=== PATIENT | male | born 1980 | race African-American/Black ===

== ENCOUNTER 2016-08-06 14:03 | Emergency (ER) | payer OTHER ==
[2016-08-06 14:07] VITALS: BP 163/99; PULSE 70; RESP 20; TEMP 97.1
--- NOTE | 2016-08-06 14:43 | ED ---
General Adult HPI - General Chief complaint: Extremity Injury, Lower Stated complaint: knee injury Time Seen by Provider: 08/06/16 14:34 Source: patient, RN notes reviewed Mode of arrival: ambulatory Limitations: no limitations - History of Present Illness Initial comments: Physical 36-year-old male who presents with left knee pain 2 days. Patient states he was playing basketball with his son and he shifted his left knee and twisted the left knee. Patient states he felt a sharp pain to the left knee at this time and the pain has been gradually getting worse. Patient is able to ambulate but this is painful. Patient has noticed increased swelling to the area. Patient has been using Tylenol, Motrin and ice the area. Patient has been resting the left lower extremity but the symptoms are persisting. Patient denies any numbness/tingling or weakness to the left lower extremity. Patient is not on any anticoagulants.Patient denies any recent fever, chills, shortness breath, chest pain, abdominal pain, nausea/vomiting/diarrhea, back pain, hematuria, headache, or visual changes, or any other complaints. - Related Data Home Medications Medication Instructions Recorded Confirmed No Known Home Medications [No 08/06/16 08/06/16 Known Home Medications] Allergies Allergy/AdvReac Type Severity Reaction Status Date / Time No Known Allergies Allergy Verified 08/06/16 14:32 Review of Systems ROS Statement: Those systems with pertinent positive or pertinent negative responses have been documented in the HPI. ROS Other: All systems not noted in ROS Statement are negative. Past Medical History Past Medical History: No Reported History History of Any Multi-Drug Resistant Organisms: None Reported Past Surgical History: No Surgical Hx Reported Past Psychological History: No Psychological Hx Reported Smoking Status: Never smoker Past Alcohol Use History: None Reported Past Drug Use History: None Reported General Exam - General Exam Comments Initial Comments: General: The patient is awake and alert, in no distress, and does not appear acutely ill. Neck: The neck is supple, there is no tenderness or JVD. Cardiovascular: There is a regular rate and rhythm. No murmur, rub or gallop is appreciated. Respiratory: Lungs are clear to auscultation, respirations are non-labored, breath sounds are equal. No wheezes, stridor, rales, or rhonchi. Musculoskeletal: There is tenderness to palpation over the medial aspect of the left knee with some localized swelling to this area. No erythema, ecchymosis or warmth. Patient's left knee is stable with varus and valgus stress and with anterior/posterior drawer test. Full range of motion, strength 5/5 and Sensation intact. Posterior tibial and dorsalis pedis pulses are 2+ bilaterally. Capillary refill is normal at less than 2 seconds. Neurological: A&O x 3. CN II-XII intact, There are no obvious motor or sensory deficits. Coordination appears grossly intact. Speech is normal. Skin: Skin is warm and dry and no rashes or lesions are noted. Psychiatric: Normal mood and affect. Limitations: no limitations Course Vital Signs 08/06/16 14:05 Temperature 97.1 F L Pulse Rate 70 Respiratory 20 Rate Blood Pressure 163/99 O2 Sat by Pulse 99 Oximetry Medical Decision Making - Medical Decision Making This is a 36-year-old male left knee pain 2 days. On physical exam there is tenderness to palpation over the medial aspect of the left knee with some localized swelling to this area. No erythema, ecchymosis or warmth. Patient's left knee is stable with varus and valgus stress and with anterior/posterior drawer test. Full range of motion, strength 5/5 and Sensation intact. Posterior tibial and dorsalis pedis pulses are 2+ bilaterally. Capillary refill is normal at less than 2 seconds. An x-ray of the left knee was done and reviewed showing: No acute fracture or dislocation. Reported by Dr. Cline. Discussed the results with patient. Discussed rest, ice, elevate and use knee immobilizer when up and walking. Discussed use of crutches. Discussed that if pain and swelling does not improve in the next 5-7 days after resting and icing and elevating and use of Tylenol and/or Motrin [id number] with knee immobilzed then patient needs to follow-up with his primary care physician and/ or orthopedics for further evaluation. As of right now patient is able to ambulate and put weight on the left lower extremity.Discussed that patient should follow up with PCP in one to 2 days or return to the [facility] for any worsening symptoms or for any further concerns. Patient was receptive to this plan and patient will be discharged home. I discussed this case with attending physician Dr. Ennis who agrees the plan as stated above. Disposition Clinical Impression: Knee sprain Disposition: HOME SELF-CARE Condition: Good Instructions: Knee Sprain (ED) Additional Instructions: Please rest, ice, elevate and use knee immobilizer while up for support. May use crutches if needed. Please continue use of Tylenol and/or Motrin for pain. If symptoms have not improved in the next 5-7 days after rest, ice, elevate, knee immobilizer and Tylenol/Motrin please follow-up with orthopedics for further evaluation. Otherwise follow-up with her primary care doctor in the next 1-2 days or return to the [facility] for any worsening symptoms or for any further concerns. Referrals: Stef Newman MD [Primary Care Provider] - 1-2 days Robert Menjivar MD [STAFF PHYSICIAN] - 1-2 days Alana Martinez III, MD [STAFF PHYSICIAN] - 1-2 days Liat Coto MD [STAFF PHYSICIAN] - 1-2 days Time of Disposition: 15:04
--- NOTE | 2016-08-06 15:03 | XR ---
EXAMINATION TYPE: XR knee complete LT DATE OF EXAM: 08/06/2016 2:54 PM COMPARISON: NONE HISTORY: Pain TECHNIQUE: Four views are submitted. FINDINGS: Mild narrowing of the joint spaces. No erosive change. There is a small suprapatellar or small fluid collection. Well-corticated density adjacent to the tibial tubercle likely related to remote trauma. Osseous structures are intact. No acute fracture seen. IMPRESSION: 1. No acute fracture or dislocation.
== END 2016-08-06 15:18 | disposition home or self-care (01) ==
LOC: EC 14:03
DX: S83.92XA Sprain of unspecified site of left knee, initial encounter (principal); X50.1XXA Overexertion from prolonged static or awkward postures, initial encounter; Y93.67 Activity, basketball
CPT/HCPCS: 99283

== ENCOUNTER 2017-04-18 09:03 | Emergency (ER) | payer OTHER ==
--- NOTE | 2017-04-18 09:48 | ED ---
General Adult HPI - General Source: patient, RN notes reviewed Mode of arrival: ambulatory Limitations: no limitations <Dang Cline - Last Filed: 04/18/17 09:46> <Ken Lowe - Last Filed: 04/18/17 10:49> - General Chief complaint: Fall Stated complaint: lower back pain Time Seen by Provider: 04/18/17 09:43 - History of Present Illness Initial comments: 37-year-old male presents to the emergency department with a chief complaint of left-sided rib pain. Patient developed this pain after he slipped and fell onto the steps. Patient states this was a few days ago. Patient states that he is still having left-sided rib pain tender to touch worse if he coughs worse if he takes a deep breath. Patient states that he was concerned because the pain just continues to be there so he thought that he should be evaluated. Patient denies hitting his head patient denies any abdominal pain. Patient denies any other injuries from the incident.Patient denies any recent fever, chills, back pain, abdominal pain, nausea vomiting, numbness or tingling, dysuria or hematuria, constipation or diarrhea, headaches or visual changes, or any other current symptoms. (Dang Cline) - Related Data Previous Rx's Medication Instructions Recorded Cyclobenzaprine [Flexeril] 10 mg PO TID #14 tab 04/18/17 Ibuprofen 800 mg PO Q6HR PRN #20 tablet 04/18/17 Metoprolol Succinate [Toprol XL] 12.5 mg PO DAILY #30 tab 04/18/17 Allergies Allergy/AdvReac Type Severity Reaction Status Date / Time egg Allergy Rash/Hives Verified 04/18/17 09:18 Review of Systems ROS Other: All systems not noted in ROS Statement are negative. <Dang Cline - Last Filed: 04/18/17 09:46> ROS Other: All systems not noted in ROS Statement are negative. <Ken Lowe - Last Filed: 04/18/17 10:49> ROS Statement: Those systems with pertinent positive or pertinent negative responses have been documented in the HPI. Past Medical History Past Medical History: No Reported History History of Any Multi-Drug Resistant Organisms: None Reported Past Surgical History: No Surgical Hx Reported Past Psychological History: No Psychological Hx Reported Smoking Status: Current every day smoker Past Alcohol Use History: Occasional Past Drug Use History: None Reported <Dang Cline - Last Filed: 04/18/17 09:46> General Exam Limitations: no limitations General appearance: alert, in no apparent distress Eye exam: Present: normal appearance, PERRL, EOMI. Absent: scleral icterus, conjunctival injection, periorbital swelling ENT exam: Present: normal exam, mucous membranes moist Neck exam: Present: normal inspection. Absent: tenderness, meningismus, lymphadenopathy Respiratory exam: Present: normal lung sounds bilaterally, chest wall tenderness (Along the left lateral chest wall over the rib cage). Absent: respiratory distress, wheezes, rales, rhonchi, stridor Cardiovascular Exam: Present: regular rate, normal rhythm, normal heart sounds. Absent: systolic murmur, diastolic murmur, rubs, gallop, clicks GI/Abdominal exam: Present: soft, normal bowel sounds. Absent: distended, tenderness, guarding, rebound, rigid Extremities exam: Present: normal inspection, full ROM, normal capillary refill. Absent: tenderness, pedal edema, joint swelling, calf tenderness Back exam: Present: normal inspection Neurological exam: Present: alert, oriented X3 Psychiatric exam: Present: normal affect, normal mood <Dang Cline - Last Filed: 04/18/17 09:46> Course <Dang Cline - Last Filed: 04/18/17 09:46> <Ken Lowe - Last Filed: 04/18/17 10:49> Vital Signs 04/18/17 04/18/17 09:10 10:39 Temperature 98.0 F 97.8 F Pulse Rate 86 75 Respiratory 20 18 Rate Blood Pressure 168/115 160/109 O2 Sat by Pulse 99 99 Oximetry - Reevaluation(s) Reevaluation #1: 04/18/17 10:38 The patient was endorsed to me by my physician engineering inspection assistant pending x-rays. X-ray show no evidence of acute fractures or abnormalities (Ken Lowe) Reevaluation #2: 04/18/17 10:39 The patient has run out of his blood pressure medication I will renew his prescription for one month. (Ken Lowe) Reevaluation #3: 04/18/17 10:49 The patient did find that the correct dose of the Toprol was 50 mg once a day I did correct that on the printed out prescription. (Ken Lowe) Medical Decision Making <Dang Cline - Last Filed: 04/18/17 09:46> <Ken Lowe - Last Filed: 04/18/17 10:49> - Medical Decision Making 37-year-old male presents emergency Department chief complaint of left-sided rib pain after a fall. This time patient underwent an x-ray of the area. ( Dang Cline) Disposition <Dang Cline - Last Filed: 04/18/17 09:46> <Ken Lowe - Last Filed: 04/18/17 10:49> Clinical Impression: Rib contusion, Fall, Hypertension Disposition: HOME SELF-CARE Condition: Good Instructions: Hypertension (ED), Rib Contusion (ED) Prescriptions: Cyclobenzaprine [Flexeril] 10 mg PO TID #14 tab Ibuprofen 800 mg PO Q6HR PRN #20 tablet PRN Reason: Pain Metoprolol Succinate [Toprol XL] 12.5 mg PO DAILY #30 tab Referrals: None,Stated [Primary Care Provider] - 1-2 days
--- NOTE | 2017-04-18 10:03 | XR ---
EXAMINATION TYPE: XR ribs LT w pa chest xray DATE OF EXAM: 04/18/2017 CLINICAL HISTORY: Fall injury 2 days ago with chest and left-sided rib pain and difficulty in breathi ng. TECHNIQUE: Single frontal view of the chest is obtained. A frontal and oblique images the left-sided ribs are acquired. COMPARISON: None FINDINGS: There is no focal air space opacity, pleural effusion, or pneumothorax seen. The cardiac silhouette size is within normal limits. The osseous structures are intact. Dedicated images of the left-sided ribs show no acute displaced fracture. IMPRESSION: 1. No suspicious acute pulmonary process. 2. No acute displaced left-sided rib fractures are seen.
[2017-04-18 10:40] VITALS: BP 160/109; PULSE 75; RESP 18; TEMP 97.8
== END 2017-04-18 10:53 | disposition home or self-care (01) ==
LOC: EC 09:03
DX: S20.212A Contusion of left front wall of thorax, initial encounter (principal); I10 Essential (primary) hypertension; M54.5 Low back pain; F17.200 Nicotine dependence, unspecified, uncomplicated; Z91.012 Allergy to eggs; W10.9XXA Fall (on) (from) unspecified stairs and steps, initial encounter
CPT/HCPCS: 99283

== ENCOUNTER 2017-06-26 09:04 | Emergency (ER) | payer OTHER ==
[2017-06-26 09:10] VITALS: RESP 18
[2017-06-26] MEDS ORDERED: HYDROmorphone 0.5 MG/0.5 ML SYRINGE IVP STA ×2 (09:18→10:15)
[2017-06-26] MEDS ORDERED: SODIUM CHLORIDE 0.9% 500 ML IV STA (09:18)
[2017-06-26] MEDS ORDERED: ONDANSETRON 4 MG/2 ML VIAL IVP STA (09:18)
--- NOTE | 2017-06-26 09:31 | ED ---
General Adult HPI - General Chief complaint: Urogenital Stated complaint: Vomiting Time Seen by Provider: 06/26/17 09:14 Source: patient, RN notes reviewed Mode of arrival: wheelchair Limitations: no limitations - History of Present Illness Initial comments: 37-year-old male presents to the emergency department with a chief complaint of right testicular pain. He states he's had this on and off for the last week or so. Today got so intense he started having nausea and vomiting with it. He states his history of this about 3 months ago with a never found a source. He denies any fever chills any changes in urination any blood in the urine. He states she was concerned due to the continued pain and the fact he was not improving so he thought that he should be seen. Patient denies any recent fever , chills, shortness of breath, chest pain, back pain, abdominal pain, numbness or tingling, dysuria or hematuria, constipation or diarrhea, headaches or visual changes, or any other current symptoms. - Related Data Home Medications Medication Instructions Recorded Confirmed Metoprolol Succinate [Toprol XL] 50 mg PO DAILY 06/26/17 06/26/17 Previous Rx's Medication Instructions Recorded Doxycycline [Vibramycin] 100 mg PO Q12HR 10 Days capsule 06/26/17 Allergies Allergy/AdvReac Type Severity Reaction Status Date / Time egg Allergy Rash/Hives Verified 06/26/17 09:51 Review of Systems ROS Statement: Those systems with pertinent positive or pertinent negative responses have been documented in the HPI. ROS Other: All systems not noted in ROS Statement are negative. Past Medical History Past Medical History: No Reported History History of Any Multi-Drug Resistant Organisms: None Reported Past Surgical History: No Surgical Hx Reported Past Psychological History: No Psychological Hx Reported Smoking Status: Current every day smoker Past Alcohol Use History: Occasional Past Drug Use History: None Reported General Exam Limitations: no limitations General appearance: alert, in no apparent distress ENT exam: Present: normal exam, mucous membranes moist Neck exam: Present: normal inspection. Absent: tenderness, meningismus, lymphadenopathy Respiratory exam: Present: normal lung sounds bilaterally. Absent: respiratory distress, wheezes, rales, rhonchi, stridor Cardiovascular Exam: Present: regular rate, normal rhythm, normal heart sounds. Absent: systolic murmur, diastolic murmur, rubs, gallop, clicks GI/Abdominal exam: Present: soft, normal bowel sounds. Absent: distended, tenderness, guarding, rebound, rigid exam: Present: testicular tenderness (Right testicle better with lifting), scrotal swelling (Minimal to the right testicle), circumcision. Absent: urethral discharge Neurological exam: Present: alert, oriented X3 Psychiatric exam: Present: normal affect, normal mood Skin exam: Present: warm, dry, intact, normal color. Absent: rash Course Vital Signs 06/26/17 06/26/17 09:07 10:15 Temperature 99.6 F 98.1 F Pulse Rate 65 70 Respiratory 18 18 Rate Blood Pressure 180/128 167/115 O2 Sat by Pulse 100 98 Oximetry Medical Decision Making - Medical Decision Making 37-year-old male presents for right testicular pain. At this time patient with Levaquin ultrasound. Patient is feeling better with pain medication. At this time patient's ultrasound has been reviewed that show suspicion for orchitis. At this time we will treat the patient accordingly. We did send a STD testing. We discussed follow-up we discussed care we did discuss return parameters all questions. Patient stated that he understood and he is agreement this plan. All questions have been answered. He will be discharged. - Lab Data Result diagrams: 06/26/17 09:35 06/26/17 09:35 Lab Results 06/26/17 06/26/17 06/26/17 Range/Units 09:35 09:35 10:20 WBC 7.7 (3.8-10.6) k/uL RBC 4.60 (4.30-5.90) m/uL Hgb 14.0 (13.0-17.5) gm/dL Hct 43.0 (39.0-53.0) % MCV 93.5 (80.0-100.0) fL MCH 30.5 (25.0-35.0) pg MCHC 32.6 (31.0-37.0) g/dL RDW 14.9 (11.5-15.5) % Plt Count 228 (150-450) k/uL Neutrophils % 64 % Lymphocytes % 23 % Monocytes % 8 % Eosinophils % 2 % Basophils % 0 % Neutrophils # 4.9 (1.3-7.7) k/uL Lymphocytes # 1.8 (1.0-4.8) k/uL Monocytes # 0.6 (0-1.0) k/uL Eosinophils # 0.2 (0-0.7) k/uL Basophils # 0.0 (0-0.2) k/uL Sodium 142 (137-145) mmol/L Potassium 4.3 (3.5-5.1) mmol/L Chloride 107 (98-107) mmol/L Carbon Dioxide 24 (22-30) mmol/L Anion Gap 11 mmol/L BUN 14 (9-20) mg/dL Creatinine 1.02 (0.66-1.25) mg/dL Est GFR (MDRD) Af Amer >60 (>60 ml/min/1.73 sqM) Est GFR (MDRD) Non-Af >60 (>60 ml/min/1.73 sqM) Glucose 111 H (74-99) mg/dL Calcium 9.8 (8.4-10.2) mg/dL Total Bilirubin 0.4 (0.2-1.3) mg/dL AST 23 (17-59) U/L ALT 27 (21-72) U/L Alkaline Phosphatase 61 (38-126) U/L Total Protein 7.5 (6.3-8.2) g/dL Albumin 4.4 (3.5-5.0) g/dL Urine Color Yellow Urine Appearance Clear (Clear) Urine pH 7.0 (5.0-8.0) Ur Specific [place] 1.014 (1.001-1.035) Urine Protein Negative (Negative) Urine Glucose (UA) Negative (Negative) Urine Ketones Negative (Negative) Urine Blood Negative (Negative) Urine Nitrite Negative (Negative) Urine Bilirubin Negative (Negative) Urine Urobilinogen 2.0 (<2.0) mg/dL Ur Leukocyte Esterase Negative (Negative) - Radiology Data Radiology results: report reviewed, image reviewed Disposition Clinical Impression: Orchitis Disposition: HOME SELF-CARE Condition: Stable Instructions: Orchitis (ED), Safe Sex (ED) Additional Instructions: Please use medication as discussed. Please follow up with family doctor if symptoms have not improved over the next two days. Please return to the emergency room if your symptoms increase or worsen or for any other concerns. Prescriptions: Doxycycline [Vibramycin] 100 mg PO Q12HR 10 Days capsule Referrals: Carlos Hawkins MD [STAFF PHYSICIAN] - 1-2 days Time of Disposition: 10:53
[2017-06-26 09:52] LABS: Basophils % (A) 0 %; Eosinophils # (A) 0.2 k/uL (0-0.7); Eosinophils % (A) 2 %; Lymphocytes # (A) 1.8 k/uL (1.0-4.8); Lymphocytes % (A) 23 %; MCH 30.5 pg (25.0-35.0); MCHC 32.6 g/dL (31.0-37.0); MCV 93.5 fL (80.0-100.0); Mean Platelet Volume 8.4; Monocytes # (A) 0.6 k/uL (0-1.0); Monocytes % (A) 8 %; Neutrophils # (A) 4.9 k/uL (1.3-7.7); Neutrophils % (A) 64 %; Platelet Count 228 k/uL (150-450); RDW 14.9 % (11.5-15.5); WBC 7.7 k/uL (3.8-10.6)
[2017-06-26 10:06] LABS: ALT 27 U/L (21-72); AST 23 U/L (17-59); Albumin 4.4 g/dL (3.5-5.0); Alkaline Phosphatase 61 U/L (38-126); Anion Gap 11 mmol/L; Blood Urea Nitrogen 14 mg/dL (9-20); Calcium 9.8 mg/dL (8.4-10.2); Carbon Dioxide 24 mmol/L (22-30); Chloride 107 mmol/L (98-107); Glucose 111 mg/dL (74-99); Potassium 4.3 mmol/L (3.5-5.1); Sodium 142 mmol/L (137-145); Total Bilirubin 0.4 mg/dL (0.2-1.3); Total Protein 7.5 g/dL (6.3-8.2)
[2017-06-26 10:16] VITALS: BP 167/115; PULSE 70; TEMP 98.1
--- NOTE | 2017-06-26 10:27 | US ---
EXAMINATION TYPE: US scrotum with doppler. Grayscale and color Doppler Duplex imaging performed of t he scrotum. DATE OF EXAM: 06/26/2017 COMPARISON: NONE CLINICAL HISTORY: Pain. right side pain x 1 day, swelling, no injury EXAM MEASUREMENTS: TESTICLES: Right Testicle: 3.9 x 3.8 x 3.0 cm Left Testicle: 5.0 x 3.3 x 2.8 cm EPIDIDYMIS HEAD: Right Epididymis: 1.2 x 2.8 x 1.2 cm Left Epididymis: 1.4 x 1.4 x1.1 cm Doppler performed to assess for testicular vascularity; good bilateral color flow and waveforms are s een. There is no evidence of testicular torsion. Presence of hydroceles: Small bilaterally Right testicle appears slightly heterogenous an hypervascular compared to left. Right epididymis juliana ears echogenic and enlarged. IMPRESSION: Sonographic findings most compatible with mild right epididymal orchitis with small bilat eral hydroceles.
[2017-06-26] MEDS ORDERED: cefTRIAXone 250 MG VIAL IM STA (10:32)
[2017-06-26 10:37] LABS: Appearance,Urine Clear (Clear); Bilirubin,Urine Negative (Negative); Blood,Urine Negative (Negative); Color,Urine Yellow; Glucose,Urine (UA) Negative (Negative); Ketones,Urine Negative (Negative); Leukocyte Esterase,Urine Negative (Negative); Nitrite,Urine Negative (Negative); Protein,Urine Negative (Negative); Specific Gravity,Urine 1.014 (1.001-1.035)
== END 2017-06-26 11:18 | disposition home or self-care (01) ==
LOC: EC 09:04
DX: N45.2 Orchitis (principal); R11.2 Nausea with vomiting, unspecified; F17.200 Nicotine dependence, unspecified, uncomplicated; Z79.899 Other long term (current) drug therapy; Z91.012 Allergy to eggs
CPT/HCPCS: 36415; 80053; 85025; 81003; 93975; 76870; 99284; 96374; 96375; 96376; 96361; 96372; J2405; J0696; J1170

== ENCOUNTER 2017-07-10 18:35 | Observation (INO) | payer OTHER ==
[2017-07-10] MEDS ORDERED: RX INFO: IV CONTRAST WAS GIVEN 1 EACH MISC MISCELLANE PRN (21:30)
[2017-07-10] MEDS ORDERED: METOPROLOL TARTRATE 50 MG TAB PO STA (21:32)
[2017-07-10] MEDS ORDERED: METOPROLOL TARTRATE 5 MG/5 ML VIAL IVP STA (21:40)
[2017-07-10] MEDS ORDERED: ONDANSETRON 4 MG/2 ML VIAL IVP STA (21:40)
[2017-07-10] MEDS ORDERED: MORPHINE SULFATE 5 MG/ML SYRINGE IV STA ×2 (21:40→23:23)
--- NOTE | 2017-07-10 21:42 | ED ---
Abdominal Pain HPI - General Chief Complaint: Abdominal Pain Stated Complaint: Abdominal pain Time Seen by Provider: 07/10/17 21:14 Source: patient Mode of arrival: ambulatory Limitations: no limitations - History of Present Illness Initial Comments: Is a 37-year-old man with right lower quadrant pain going on for a bit over 28 hours. The patient states that did seem to have become more intense from this afternoon on. He describes as a burning/aching pain. It is now severe. He has not found any relieving factors and does note that is worse if he presses on his abdomen. He states he has also been having some nausea and vomiting associated. He states he did have a bowel movement this afternoon but that it was very loose. No change in urination. No urethral discharge. He states he has also noted a small lump just above his umbilicus MD Complaint: abdominal pain Onset/Timin -: hour(s) Location: RLQ Radiation: none Migration to: no migration Severity: severe Quality: aching, burning Consistency: constant Improves With: nothing Worsens With: nothing Associated Symptoms: nausea, vomiting - Related Data Previous Rx's Medication Instructions Recorded Metoprolol Succinate [Toprol XL] 50 mg PO DAILY #30 tab.er.24h 06/26/17 Allergies Allergy/AdvReac Type Severity Reaction Status Date / Time egg Allergy Rash/Hives Verified 07/10/17 21:10 Review of Systems ROS Statement: Those systems with pertinent positive or pertinent negative responses have been documented in the HPI. ROS Other: All systems not noted in ROS Statement are negative. Constitutional: Denies: fever, chills Respiratory: Denies: cough, dyspnea Cardiovascular: Denies: chest pain, palpitations, edema Gastrointestinal: Reports: abdominal pain, nausea, vomiting. Denies: diarrhea, hematemesis, melena, hematochezia Genitourinary: Denies: dysuria, hematuria, discharge, testicular pain, testicular mass Musculoskeletal: Denies: back pain Skin: Denies: rash Neurological: Denies: headache, weakness, numbness Past Medical History Past Medical History: Hypertension History of Any Multi-Drug Resistant Organisms: None Reported Past Surgical History: No Surgical Hx Reported Past Psychological History: No Psychological Hx Reported Smoking Status: Current every day smoker Past Alcohol Use History: Occasional Past Drug Use History: None Reported General Exam Limitations: no limitations General appearance: alert, in distress Head exam: Present: atraumatic, normocephalic Eye exam: Present: normal appearance. Absent: scleral icterus, conjunctival injection ENT exam: Present: normal oropharynx Neck exam: Present: normal inspection, full ROM Respiratory exam: Present: normal lung sounds bilaterally. Absent: respiratory distress, wheezes, rales, rhonchi, stridor Cardiovascular Exam: Present: regular rate, normal rhythm, normal heart sounds. Absent: systolic murmur, diastolic murmur, rubs, gallop GI/Abdominal exam: Present: soft. Absent: distended, tenderness, guarding, rebound, mass Extremities exam: Present: normal inspection, normal capillary refill. Absent: pedal edema, calf tenderness Back exam: Present: normal inspection, full ROM. Absent: CVA tenderness (R), CVA tenderness (L) Neurological exam: Present: alert Skin exam: Present: warm, dry, intact, normal color. Absent: rash Course Vital Signs 07/10/17 07/10/17 07/10/17 18:46 21:31 22:53 Temperature 98.2 F Pulse Rate 64 55 L Respiratory 22 20 Rate Blood Pressure 211/129 213/114 178/101 O2 Sat by Pulse 100 100 Oximetry Medical Decision Making - Lab Data Result diagrams: 07/10/17 21:30 07/10/17 21:30 Lab Results 07/10/17 07/10/17 07/10/17 Range/Units 21:30 21:30 21:30 WBC 7.0 (3.8-10.6) k/uL RBC 4.32 (4.30-5.90) m/uL Hgb 13.4 (13.0-17.5) gm/dL Hct 41.6 (39.0-53.0) % MCV 96.2 (80.0-100.0) fL MCH 31.1 (25.0-35.0) pg MCHC 32.3 (31.0-37.0) g/dL RDW 13.3 (11.5-15.5) % Plt Count 225 (150-450) k/uL Neutrophils % 81 % Lymphocytes % 13 % Monocytes % 4 % Eosinophils % 2 % Basophils % 0 % Neutrophils # 5.6 (1.3-7.7) k/uL Lymphocytes # 0.9 L (1.0-4.8) k/uL Monocytes # 0.3 (0-1.0) k/uL Eosinophils # 0.1 (0-0.7) k/uL Basophils # 0.0 (0-0.2) k/uL Sodium 144 (137-145) mmol/L Potassium 3.9 (3.5-5.1) mmol/L Chloride 108 H (98-107) mmol/L Carbon Dioxide 24 (22-30) mmol/L Anion Gap 12 mmol/L BUN 17 (9-20) mg/dL Creatinine 1.10 (0.66-1.25) mg/dL Est GFR (MDRD) Af Amer >60 (>60 ml/min/1.73 sqM) Est GFR (MDRD) Non-Af >60 (>60 ml/min/1.73 sqM) Glucose 113 H (74-99) mg/dL Calcium 9.8 (8.4-10.2) mg/dL Total Bilirubin 0.3 (0.2-1.3) mg/dL AST 29 (17-59) U/L ALT 20 L (21-72) U/L Alkaline Phosphatase 66 (38-126) U/L Total Protein 7.3 (6.3-8.2) g/dL Albumin 4.3 (3.5-5.0) g/dL Amylase 64 (30-110) U/L Lipase 72 (23-300) U/L Urine Color Light Yellow Urine Appearance Clear (Clear) Urine pH 6.0 (5.0-8.0) Ur Specific [place] 1.015 (1.001-1.035) Urine Protein Negative (Negative) Urine Glucose (UA) Negative (Negative) Urine Ketones Negative (Negative) Urine Blood Negative (Negative) Urine Nitrite Negative (Negative) Urine Bilirubin Negative (Negative) Urine Urobilinogen <2.0 (<2.0) mg/dL Ur Leukocyte Esterase Negative (Negative) Disposition Clinical Impression: Abdominal pain Disposition: ADMITTED IP TO THIS HOSP Condition: Fair Instructions: Abdominal Pain (ED) Referrals: None,Stated [Primary Care Provider] - 1-2 days
[2017-07-10 21:44] LABS: Appearance,Urine Clear (Clear); Basophils % (A) 0 %; Bilirubin,Urine Negative (Negative); Blood,Urine Negative (Negative); Color,Urine Light Yellow; Eosinophils # (A) 0.1 k/uL (0-0.7); Eosinophils % (A) 2 %; Glucose,Urine (UA) Negative (Negative); HCT 41.6 % (39.0-53.0); HGB 13.4 gm/dL (13.0-17.5); Ketones,Urine Negative (Negative); Leukocyte Esterase,Urine Negative (Negative); Lymphocytes # (A) 0.9 k/uL (1.0-4.8); Lymphocytes % (A) 13 %; MCH 31.1 pg (25.0-35.0); MCHC 32.3 g/dL (31.0-37.0); MCV 96.2 fL (80.0-100.0); Mean Platelet Volume 7.5; Monocytes # (A) 0.3 k/uL (0-1.0); Monocytes % (A) 4 %; Neutrophils # (A) 5.6 k/uL (1.3-7.7); Neutrophils % (A) 81 %; Nitrite,Urine Negative (Negative); Platelet Count 225 k/uL (150-450); Protein,Urine Negative (Negative); RBC 4.32 m/uL (4.30-5.90); RDW 13.3 % (11.5-15.5); Specific Gravity,Urine 1.015 (1.001-1.035); Urobilinogen,Urine <2.0 mg/dL (<2.0)
[2017-07-10 21:56] LABS: ALT 20 U/L (21-72); AST 29 U/L (17-59); Albumin 4.3 g/dL (3.5-5.0); Alkaline Phosphatase 66 U/L (38-126); Amylase 64 U/L (30-110); Anion Gap 12 mmol/L; Blood Urea Nitrogen 17 mg/dL (9-20); Calcium 9.8 mg/dL (8.4-10.2); Carbon Dioxide 24 mmol/L (22-30); Chloride 108 mmol/L (98-107); Glucose 113 mg/dL (74-99); Lipase 72 U/L (23-300); Potassium 3.9 mmol/L (3.5-5.1); Sodium 144 mmol/L (137-145); Total Bilirubin 0.3 mg/dL (0.2-1.3); Total Protein 7.3 g/dL (6.3-8.2)
--- NOTE | 2017-07-10 22:44 | CT ---
EXAMINATION TYPE: CT abdomen pelvis w con DATE OF EXAM: 07/10/2017 COMPARISON: NONE HISTORY: RLQ abd pain. CT DLP: 644.4 mGycm Automated exposure control for dose reduction was used. TECHNIQUE: Helical acquisition of images was performed from the lung bases through the pelvis. CONTRAST: Performed without Oral Contrast and with IV Contrast, patient injected with 100ml mL of Omnipaque 300 . FINDINGS: Lung bases are clear. There is no pleural effusion. Heart appears mildly enlarged. Liver spleen pancreas gallbladder appear normal. Bile ducts are not dilated. There is no adrenal mass . Kidneys show satisfactory contrast opacification. There is no hydronephrosis. There is no retroperi toneal adenopathy. The abdominal aorta is large for the patient's relatively young age. The lower abd ominal aorta measures 2.7 cm. Common iliac arteries measure 1.5 cm. I see no intestinal wall thickeni ng. There are no dilated loops. There is no ascites. There are some varicose veins in the pelvis on t he left side more than the right. Appendix appears normal. Bladder distends smoothly. There is posterior disc bulging at L3-4 L4-5 and L5-S1 with narrowing of t he spinal canal. There is multilevel lumbar spinal stenosis. IMPRESSION: THERE ARE PELVIC VARICOSE VEINS OF UNCERTAIN ORIGIN AND SIGNIFICANCE. NO FREE FLUID. ECTASIA OF THE ABDOMINAL AORTA AND THE ILIAC ARTERIES IN THIS RELATIVELY YOUNG PATIENT. THERE IS PROB ABLY MILD CARDIOMEGALY. THERE IS SOME SPONDYLOSIS IN THE LOWER LUMBAR SPINE WITH MULTILEVEL LUMBAR SPINAL BONY SPINAL STENOSI S AND POSTERIOR DISC BULGING AND HERNIATION SEEN AT L3-4 L4-5 AND L5-S1.
[2017-07-10] MEDS ORDERED: METOPROLOL TARTRATE 25 MG TAB PO STA (23:24)
[2017-07-10] MEDS ORDERED: ACETAMINOPHEN TAB 325 MG TAB PO PRN (23:29)
[2017-07-10] MEDS ORDERED: ONDANSETRON 4 MG/2 ML VIAL IVP PRN (23:29)
[2017-07-10] MEDS ORDERED: NALOXONE 0.4 MG/ML 1 ML VIAL IV PRN (23:29)
[2017-07-10] MEDS ORDERED: MORPHINE SULFATE 5 MG/ML SYRINGE IV PRN (23:29)
[2017-07-11 01:23] VITALS: BMI 23.7
[2017-07-11] MEDS: MORPHINE SULFATE 2 MG/ML SYRINGE IV PRN ×4 (01:47→22:06)
[2017-07-11] MEDS: SODIUM CHLORIDE 0.9% 1,000 ML IV SCH ×2 (01:48→21:33)
[2017-07-11 06:49] LABS: Basophils % (A) 0 %; Eosinophils # (A) 0.1 k/uL (0-0.7); Eosinophils % (A) 2 %; HCT 41.2 % (39.0-53.0); HGB 13.2 gm/dL (13.0-17.5); Lymphocytes # (A) 2.4 k/uL (1.0-4.8); Lymphocytes % (A) 33 %; MCH 31.7 pg (25.0-35.0); MCHC 32.1 g/dL (31.0-37.0); MCV 98.7 fL (80.0-100.0); Mean Platelet Volume 8.2; Monocytes # (A) 0.5 k/uL (0-1.0); Monocytes % (A) 6 %; Neutrophils # (A) 4.2 k/uL (1.3-7.7); Neutrophils % (A) 57 %; Platelet Count 209 k/uL (150-450); RBC 4.17 m/uL (4.30-5.90); RDW 14.5 % (11.5-15.5); WBC 7.4 k/uL (3.8-10.6)
[2017-07-11 07:00] LABS: ALT 26 U/L (21-72); AST 25 U/L (17-59); Albumin 3.7 g/dL (3.5-5.0); Alkaline Phosphatase 59 U/L (38-126); Anion Gap 10 mmol/L; Blood Urea Nitrogen 10 mg/dL (9-20); Calcium 9.1 mg/dL (8.4-10.2); Carbon Dioxide 24 mmol/L (22-30); Chloride 108 mmol/L (98-107); Glucose 94 mg/dL (74-99); Potassium 3.8 mmol/L (3.5-5.1); Sodium 142 mmol/L (137-145); Total Bilirubin 0.5 mg/dL (0.2-1.3); Total Protein 6.4 g/dL (6.3-8.2)
[2017-07-11] MEDS ORDERED: ROCURONIUM BROMIDE 10 MG/ML 10 ML VIAL IV ONE (07:03)
[2017-07-11] MEDS ORDERED: KETOROLAC 30 MG/ML 1 ML VIAL ONE (07:03)
[2017-07-11] MEDS ORDERED: PROPOFOL 10 MG/ML 20 ML VIAL IV ONE (07:03)
[2017-07-11] MEDS ORDERED: HYDROmorphone (PF) 1 MG/ML ONE (07:03)
[2017-07-11] MEDS ORDERED: GLYCOPYRROLATE 0.2 MG/ML 2 ML VIAL ONE (07:03)
[2017-07-11] MEDS ORDERED: MIDAZOLAM 2 MG/2 ML VIAL ONE (07:03)
[2017-07-11] MEDS ORDERED: SUCCINYLCHOLINE CHLORIDE 100 MG/5 ML SYR IV ONE (07:03)
[2017-07-11] MEDS ORDERED: NEOSTIGMINE 1 MG/ML 10 ML VIAL ONE (07:03)
[2017-07-11] MEDS ORDERED: fentaNYL (PF) 50 MCG/ML 2 ML AMP ONE (07:03)
[2017-07-11] MEDS ORDERED: LIDOCAINE 1% INJ 10MG/ML (20 ML MDV) ONE (07:03)
[2017-07-11] MEDS: FAMOTIDINE 20 MG TAB PO SCH ×2 (08:09→20:10)
[2017-07-11] MEDS: METOPROLOL SUCCINATE (ER) 50 MG TAB.ER.24H PO SCH ×2 (09:28→20:10)
--- NOTE | 2017-07-11 11:14 | P.GSHP ---
History of Present Illness H&P Date: 07/11/17 Chief Complaint: Abdominal pain The patient's a 37-year-old man who began having some right-sided abdominal pain on Saturday. He was able to work Saturday but we he was having quite a bit of discomfort. He also worked and it was persisting. He came into the emergency room last night. He's had some nausea and vomiting. Possible low- grade fever no chills. No previous episodes of anything like this in the past. He's had some intermittent diarrhea 2-3 times a day for the last few days. No blood in the stool or dark tarry stool. For last 2 weeks he has had some heartburn and indigestion. He's tried adjusting his diet to avoid fatty foods and hasn't really helped. No dysphagia. No weight loss. No history of ulcer disease. Today the pain is right lower quadrant. Worse when he moves. - Review of Systems All systems: negative - Constitutional Constitutional: Reports chills Past Medical History Past Medical History: Hypertension Additional Past Medical History / Comment(s): patient broke right wrist playing basketball in 2002 History of Any Multi-Drug Resistant Organisms: None Reported Past Surgical History: No Surgical Hx Reported Past Psychological History: No Psychological Hx Reported Smoking Status: Current every day smoker Past Alcohol Use History: Occasional Past Drug Use History: None Reported - Past Family History Father Family Medical History: No Reported History, Hypertension Mother Family Medical History: No Reported History Medications and Allergies Home Medications Medication Instructions Recorded Confirmed Type Metoprolol Succinate [Toprol XL] 50 mg PO BID 07/11/17 07/10/17 History Allergies Allergy/AdvReac Type Severity Reaction Status Date / Time egg Allergy Rash/Hives Verified 07/10/17 21:10 Surgical - Exam Osteopathic Statement: *. No significant issues noted on an osteopathic structural exam other than those noted in the History and Physical/Consult. Vital Signs Temp Pulse Resp BP Pulse Ox 98.2 F 64 22 211/129 100 07/10/17 18:46 07/10/17 18:46 07/10/17 18:46 07/10/17 18:46 07/10/17 18:46 - General well developed, well nourished, no distress - Eyes normal ocular movement - ENT normal mucosa - Neck trachea midline - Respiratory normal respiratory effort, clear to auscultation - Cardiovascular Rhythm: regular - Abdomen Abdomen: soft, tender (Right lower quadrant with some mild guarding), no surgical scars, no rigid, no rebound, no distended Results - Labs 07/11/17 06:16 07/11/17 06:16 Abnormal Lab Results - Last 24 Hours (Table) 07/10/17 07/10/17 07/11/17 Range/Units 21:30 21:30 06:16 RBC 4.17 L (4.30-5.90) m/uL Lymphocytes # 0.9 L (1.0-4.8) k/uL Chloride 108 H (98-107) mmol/L Glucose 113 H (74-99) mg/dL ALT 20 L (21-72) U/L 07/11/17 Range/Units 06:16 RBC (4.30-5.90) m/uL Lymphocytes # (1.0-4.8) k/uL Chloride 108 H (98-107) mmol/L Glucose (74-99) mg/dL ALT (21-72) U/L Diabetes panel 07/10/17 07/11/17 Range/Units 21:30 06:16 Sodium 144 142 (137-145) mmol/L Potassium 3.9 3.8 (3.5-5.1) mmol/L Chloride 108 H 108 H (98-107) mmol/L Carbon Dioxide 24 24 (22-30) mmol/L BUN 17 10 (9-20) mg/dL Creatinine 1.10 0.95 (0.66-1.25) mg/dL Glucose 113 H 94 (74-99) mg/dL Calcium 9.8 9.1 (8.4-10.2) mg/dL AST 29 25 (17-59) U/L ALT 20 L 26 (21-72) U/L Alkaline Phosphatase 66 59 (38-126) U/L Total Protein 7.3 6.4 (6.3-8.2) g/dL Albumin 4.3 3.7 (3.5-5.0) g/dL Calcium panel 07/10/17 07/11/17 Range/Units 21:30 06:16 Calcium 9.8 9.1 (8.4-10.2) mg/dL Albumin 4.3 3.7 (3.5-5.0) g/dL Pituitary panel 07/10/17 07/11/17 Range/Units 21:30 06:16 Sodium 144 142 (137-145) mmol/L Potassium 3.9 3.8 (3.5-5.1) mmol/L Chloride 108 H 108 H (98-107) mmol/L Carbon Dioxide 24 24 (22-30) mmol/L BUN 17 10 (9-20) mg/dL Creatinine 1.10 0.95 (0.66-1.25) mg/dL Glucose 113 H 94 (74-99) mg/dL Calcium 9.8 9.1 (8.4-10.2) mg/dL Adrenal panel 07/10/17 07/11/17 Range/Units 21:30 06:16 Sodium 144 142 (137-145) mmol/L Potassium 3.9 3.8 (3.5-5.1) mmol/L Chloride 108 H 108 H (98-107) mmol/L Carbon Dioxide 24 24 (22-30) mmol/L BUN 17 10 (9-20) mg/dL Creatinine 1.10 0.95 (0.66-1.25) mg/dL Glucose 113 H 94 (74-99) mg/dL Calcium 9.8 9.1 (8.4-10.2) mg/dL Total Bilirubin 0.3 0.5 (0.2-1.3) mg/dL AST 29 25 (17-59) U/L ALT 20 L 26 (21-72) U/L Alkaline Phosphatase 66 59 (38-126) U/L Total Protein 7.3 6.4 (6.3-8.2) g/dL Albumin 4.3 3.7 (3.5-5.0) g/dL - Imaging CT scan - abdomen: report reviewed, image reviewed Assessment and Plan (1) Abdominal pain Current Visit: Yes Status: Acute Code(s): R10.9 - UNSPECIFIED ABDOMINAL PAIN SNOMED Code(s): 41754180 Plan: We'll hydrate the patient and control pain. We'll make him nothing by mouth. Reevaluate in this afternoon. If he has persistent pain that I think he benefit from laparoscopic appendectomy. I explained that sometimes early appendicitis is not well visualized on CT scan. Further recommendations to follow.
[2017-07-11] MEDS ORDERED: IV FLUID CONTINUATION 1,000 ML IV ONE (15:48)
[2017-07-11] MEDS ORDERED: fentaNYL (PF) 50 MCG/ML 2 ML AMP IVP ONE (16:03)
[2017-07-11] MEDS ORDERED: BUPIVACAINE (PF) 0.25% 30 ML VIAL SQ ONE ×2 (16:08)
[2017-07-11] MEDS ORDERED: ERTAPENEM 1 GM in SODIUM CHLORIDE 0.9% 50 ML IVPB STA (17:01)
[2017-07-11] MEDS ORDERED: LACTATED RINGERS 1,000 ML IV ONE (17:26)
--- NOTE | 2017-07-11 17:53 | P.OP ---
Date of Procedure: 07/11/17 Preoperative Diagnosis: Right lower quadrant pain, appendicitis, umbilical hernia Postoperative Diagnosis: Same, small bilateral direct inguinal hernias Procedure(s) Performed: Laparoscopic appendectomy, umbilical herniorrhaphy Anesthesia: DEVON Surgeon: Eveline Calhoun Estimated Blood Loss (ml): 5 Pathology: other (Appendix) Condition: stable Disposition: PACU Indications for Procedure: The patient has had right lower quadrant pain with some nausea. It's been persisting. His CAT scan was okay but his symptomatology and pain was in the right location for appendicitis. He also had a small incarcerated umbilical hernia Operative Findings: Small umbilical hernia with incarcerated preperitoneal fat, small direct inguinal hernias, probable early appendicitis Description of Procedure: The patient's taken the operative suite where he is prepped and draped in the usual sterile manner under general endotracheal anesthetic. A small supraumbilical incision was made. The incarcerated preperitoneal fat is dissected free. It's transected with harmonic scissors. An optical trocar was placed through the small fascial defect. The defect was probably 6 mm in size. Pneumoperitoneum was then established with CO2 gas. Sites are chosen for accessory trochars and these are placed through small skin incisions. The liver , diaphragm, large and small bowel were normal where they were seen. The terminal ileum was run and there was no evidence of a goals diverticulum. The appendix was somewhat injected. It was grasped and retracted towards the anterior abdominal wall. The mesial appendix was taken down with harmonic scissors. The base was ligated with 0 PDS Endoloops 2. The appendix is then transected and placed into a specimen retrieval bag. The retrieval bag was removed through the umbilical port site. The trochars were removed. The pneumoperitoneum was released. The fascia at the umbilicus was closed with 0 Vicryl. The skin incisions were closed with 4-0 Vicryl subcuticular manner. Steri-Strips and dressings were applied. He tolerated the procedure without difficulty and was taken recovery room in satisfactory condition. According to or personnel, all counts were correct.
[2017-07-11] MEDS ORDERED: D5-0.45% NACL WITH KCL 20MEQ/L 1,000 ML IV SCH (18:00)
[2017-07-11] MEDS: MORPHINE SULFATE 10 MG/ML SYRINGE IVP ONE ×5 (18:12→18:40)
[2017-07-11 18:15] VITALS: RESP 16
[2017-07-11] MEDS: KETOROLAC 30 MG/ML 1 ML VIAL IVP SCH (20:07)
[2017-07-12] MEDS: HYDROcodone/APAP 5-325MG 1 EACH TAB PO PRN ×2 (00:07→05:20)
[2017-07-12] MEDS: KETOROLAC 30 MG/ML 1 ML VIAL IVP SCH ×2 (00:08→05:20)
[2017-07-12] MEDS: FAMOTIDINE 20 MG TAB PO SCH (08:35)
[2017-07-12] MEDS: METOPROLOL SUCCINATE (ER) 50 MG TAB.ER.24H PO SCH (08:35)
[2017-07-12 08:45] VITALS: BP 154/89; PULSE 73; TEMP 99.2
[2017-07-12 14:18] LABS: C. trachomatis,PCR Negative (Neg,Equiv); Chlamydia trachomatis Source Urine; N. gonorrhoeae,PCR Negative (Neg,Equiv); Neisseria Source Urine
--- NOTE | 2017-07-25 12:03 | P.DS ---
Providers Date of admission: 07/10/17 23:29 Expected date of discharge: 07/12/17 Attending physician: Eveline Calhoun Primary care physician: Stated None - Discharge Diagnosis(es) (1) Abdominal pain Status: Acute Hospital Course: The patient presented with right lower quadrant pain and diarrhea. The computed tomography scan did not show evidence of acute appendicitis however his pain was consistent with appendicitis and persistent. He is subsequently taken the OR where he underwent laparoscopic appendectomy. Appendix appeared somewhat injected. The terminal ileum was normal. No evidence of Meckel's diverticulum. No evidence of inguinal hernias. Postoperative day 1 he was feeling better. He was not having diarrhea. Was felt to be stable for discharge. Pertinent Studies: Computed tomography scan, labs Procedures: Laparoscopic appendectomy Patient Condition at Discharge: Good Plan - Discharge Summary Discharge Rx Participant: Yes New Discharge Prescriptions: New HYDROcodone/APAP 5-325MG [[place] 5-325] 1 - 2 tab PO Q6HR PRN #30 tab PRN Reason: Pain Metoprolol Succinate (ER) [Toprol Xl] 50 mg PO BID #60 tab No Action Metoprolol Succinate [Toprol XL] 50 mg PO BID Discharge Medication List Metoprolol Succinate [Toprol XL] 50 mg PO BID 07/11/17 [History] HYDROcodone/APAP 5-325MG [[place] 5-325] 1 - 2 tab PO Q6HR PRN #30 tab 07/12/17 [ Rx] Metoprolol Succinate (ER) [Toprol Xl] 50 mg PO BID #60 tab 07/12/17 [Rx] Follow up Appointment(s)/Referral(s): Eveline Calhoun DO [Doctor of Osteopathic Medicine] - 07/18/17 1:15 pm None,Stated [Primary Care Provider] - Patient Instructions/Handouts: Laparoscopic Appendectomy (DC), Umbilical Hernia (DC), Abdominal Pain (ED) Activity/Diet/Wound Care/Special Instructions: No lifting more than 15 pounds for 1 week. No work until 07-22-2017. May remove dressing and shower saturday. Call if questions or concerns Discharge Disposition: HOME SELF-CARE
== END 2017-07-12 12:10 | disposition home or self-care (01) ==
LOC: EC 18:35 → 3SUR 23:29
PROVIDERS: ADMIT Surgery; ATTEND Surgery
DX: R10.31 Right lower quadrant pain (principal); K42.0 Umbilical hernia with obstruction, without gangrene; K40.20 Bilateral inguinal hernia, without obstruction or gangrene, not specified as recurrent; I10 Essential (primary) hypertension; F17.200 Nicotine dependence, unspecified, uncomplicated; Z79.899 Other long term (current) drug therapy; Z91.012 Allergy to eggs
CPT/HCPCS: 44970; 96375 ×3; 96374 ×2; 99285 ×2; 36415; 88304; 80053 ×2; 82150; 83690; 85025 ×2; 81003; 87491; 87591; 74177; G0378 ×3; J2250; J2710; J2270 ×2; J2405; J2001; J3010; J1885 ×2; J1335; J1170; Q9967; J0330; J2704; J2274

== ENCOUNTER 2019-12-18 00:30 | Emergency (ER) | payer OTHER ==
[2019-12-18] MEDS ORDERED: SODIUM CHLORIDE 0.9% 1,000 ML IV STA (00:37)
[2019-12-18] MEDS ORDERED: MORPHINE SULFATE 4 MG/ML SYRINGE IV STA (00:37)
[2019-12-18 01:13] LABS: Basophils # (A) 0.1 k/uL (0-0.2); Basophils % (A) 1 %; Eosinophils # (A) 0.3 k/uL (0-0.7); Eosinophils % (A) 3 %; HCT 44.7 % (39.0-53.0); HGB 14.4 gm/dL (13.0-17.5); Lymphocytes # (A) 2.2 k/uL (1.0-4.8); Lymphocytes % (A) 26 %; MCH 30.3 pg (25.0-35.0); MCHC 32.2 g/dL (31.0-37.0); Mean Platelet Volume 8.7; Monocytes # (A) 0.5 k/uL (0-1.0); Monocytes % (A) 6 %; Neutrophils # (A) 5.2 k/uL (1.3-7.7); Neutrophils % (A) 62 %; Platelet Count 225 k/uL (150-450); RBC 4.76 m/uL (4.30-5.90); WBC 8.5 k/uL (3.8-10.6)
[2019-12-18 01:16] LABS: Appearance,Urine Clear (Clear); Bilirubin,Urine Negative (Negative); Blood,Urine Negative (Negative); Color,Urine Yellow; Glucose,Urine (UA) Negative (Negative); Ketones,Urine Negative (Negative); Leukocyte Esterase,Urine Negative (Negative); Nitrite,Urine Negative (Negative); Protein,Urine Negative (Negative); Urobilinogen,Urine <2.0 mg/dL (<2.0)
[2019-12-18 01:33] LABS: ALT 14 U/L (4-49); AST 20 U/L (17-59); African American GFR (CKD) >90 (>60 ml/min/1.73 sqM); Albumin 4.3 g/dL (3.5-5.0); Alkaline Phosphatase 69 U/L (38-126); Anion Gap 8 mmol/L; Blood Urea Nitrogen 15 mg/dL (9-20); Calcium 9.6 mg/dL (8.4-10.2); Carbon Dioxide 22 mmol/L (22-30); Chloride 107 mmol/L (98-107); Glucose 114 mg/dL (74-99); Non-African American GFR(CKD) 85 (>60 ml/min/1.73 sqM); Potassium 3.7 mmol/L (3.5-5.1); Sodium 137 mmol/L (137-145); Total Bilirubin 0.3 mg/dL (0.2-1.3); Total Protein 7.2 g/dL (6.3-8.2)
[2019-12-18] MEDS ORDERED: KETOROLAC 30 MG/ML 1 ML VIAL IVP STA (01:40)
--- NOTE | 2019-12-18 01:46 | US ---
EXAMINATION TYPE: US scrotum with doppler. Grayscale and color Doppler Duplex imaging performed of t he scrotum. DATE OF EXAM: 12/18/2019 COMPARISON: US 2017, CT 2017 CLINICAL HISTORY: pain, edema. Pain, edema on right side x 1 day. Hx appendectomy. EXAM MEASUREMENTS: TESTICLES: Right Testicle: 4.0 x 2.5 x 3.1 cm Left Testicle: 4.7 x 3.4 x 2.8 cm EPIDIDYMIS HEAD: Right Epididymis: 1.2 x 1.4 x 1.1 cm Left Epididymis: 0.8 x 1.2 x 1.0 cm Doppler performed to assess for testicular vascularity; bilateral color flow and waveforms are seen. Presence of hydroceles: not seen Presence of varicoceles: not seen Right epididymis appears heterogeneous, echogenic, and slightly enlarged. Left epididymis appears het erogeneous. Right testicle appears heterogeneous and slightly smaller than left testicle. IMPRESSION: There is no evidence of testicular torsion. Right epididymis slightly larger than the lef t but no significant hyperemia seen to suggest epididymitis. No free fluid.
--- NOTE | 2019-12-18 02:30 | ED ---
Abdominal Pain HPI - General Chief Complaint: Abdominal Pain Stated Complaint: Abdominal pain Time Seen by Provider: 12/18/19 00:37 Source: patient Mode of arrival: ambulatory Limitations: no limitations - History of Present Illness Initial Comments: Elan is a 39-year-old male who presents to the ER today for evaluation of right lower quadrant abdominal pain. Patient reports he feels pain in his abdominal wall. He states he feels like he was kicked in the muscle and he should expect to see a bruise developing any time however he has no trauma he's not been injured his children haven't jumped on him. He states this is been the lazy is 2 months of his life due to the shutdown he's not been going to the gym he has not been playing basketball he saw been physically active he can imagine how he could've pulled a muscle. The pain is in the right lower quadrant radiating into the testicle. He has noticed some swelling of the right testicle. Has no penile discharge no concern for sexual transmitted infections. She reports no nausea vomiting diarrhea. He reports that he thought his abdominal pain was possibly related to needing to have a bowel movement but he was able to with no difficulty with no change in pain. He states it doesn't feel like bowel pain or gas pain because it hasn't moved from the right quadrant and feels like it's in the muscle. - Related Data Home Medications Medication Instructions Recorded Confirmed Metoprolol Succinate [Toprol XL] 50 mg PO BID 07/11/17 07/10/17 Previous Rx's Medication Instructions Recorded HYDROcodone/APAP 5-325MG [[place] 1 - 2 tab PO Q6HR PRN #30 tab 07/12/17 5-325] Metoprolol Succinate (ER) [Toprol 50 mg PO BID #60 tab 07/12/17 Xl] Ibuprofen [Motrin] 600 mg PO Q6HR PRN #30 tab 12/18/19 Methocarbamol [Robaxin-750] 750 mg PO TID #30 tablet 12/18/19 Allergies Allergy/AdvReac Type Severity Reaction Status Date / Time egg Allergy Rash/Hives Verified 12/18/19 00:36 Review of Systems ROS Statement: Those systems with pertinent positive or pertinent negative responses have been documented in the HPI. ROS Other: All systems not noted in ROS Statement are negative. Past Medical History Past Medical History: Hypertension Additional Past Medical History / Comment(s): patient broke right wrist playing basketball in 2002 History of Any Multi-Drug Resistant Organisms: None Reported Past Surgical History: Appendectomy Past Psychological History: No Psychological Hx Reported Smoking Status: Current every day smoker Past Alcohol Use History: Occasional Past Drug Use History: Marijuana - Past Family History Father Family Medical History: No Reported History, Hypertension Mother Family Medical History: No Reported History General Exam - General Exam Comments Initial Comments: Physical Exam GENERAL: Patient is well-developed and well-nourished. Patient is nontoxic and well- hydrated and is in no distress. HENT: Normocephalic, Atraumatic. EYES: PERRL, EOMI PULMONARY: Unlabored respirations. No audible rales rhonchi or wheezing was noted. CARDIOVASCULAR: There is a regular rate and rhythm without any murmurs gallops or rubs. ABDOMEN: Soft with normal active bowel sounds There is tenderness to palpation in the right lower quadrant but no peritoneal signs SKIN: Skin is clear with no lesions or rashes and otherwise unremarkable. : Normal external genitalia Mild tenderness to palpation of the right testicle no obvious swelling NEUROLOGIC: Patient is alert and oriented x3. Moving all extremities spontaneously MUSCULOSKELETAL: Normal extremities with adequate strength and full range of motion. No lower extremity swelling or edema. No calf tenderness. PSYCHIATRIC: Normal psychiatric evaluation. Limitations: no limitations Course Vital Signs 12/18/19 12/18/19 12/18/19 00:32 01:38 03:45 Temperature 99.9 F H Pulse Rate 55 L 65 60 Respiratory 18 19 18 Rate Blood Pressure 178/119 165/93 147/99 O2 Sat by Pulse 100 97 100 Oximetry Medical Decision Making - Medical Decision Making Patient was seen and evaluated history was obtained from patient patient has a right lower quadrant tenderness with pain radiating to the testicles. He is status post appendectomy years ago. He is not having any bowel signs or fevers. General exam is relatively unremarkable however an ultrasound of the testicles was obtained and resulted with acute findings. Patient she morphine and then Toradol. Reported his pain improved significantly. His labs were unremarkable. Given his pain a computed tomography scan was obtained. Computed tomography scan had no acute findings in the right lower quadrant, there is no lymphadenopathy no free fluids. Patient does have a minimal expansion of his known aortic aneurysm, previously measured 2.7 cm today is 3.2. Results were discussed with patient. Upon reevaluation patient does admit that the pain is worse when he attempts to stretch backwards or when he is engaging his abscess to sit up. He does feel this is likely muscle injury. Though he is not sure how it happened. He does have [id number] at home who is frequently picking up and playing with. Patient's pain is improved significantly with medications he will be discharged home with anti-inflammatories and muscle relaxers. Advised to follow-up with his primary care physician for evaluation of his pain if it persists. Patient was referred to vascular surgery for follow-up for his known AAA. She was noted to be hypertensive upon arrival, this was likely multifactorial related to known hypertension, medication noncompliance and pain. Patient blood pressure improved significantly after pain management. Patient did admit that due to the should and he hasn't been able see his primary care provider and has ran out of his Toprol. He is scheduled to see his primary care provider on Saturday. - Lab Data Result diagrams: 12/18/19 01:03 12/18/19 01:03 Lab Results 12/18/19 12/18/19 12/18/19 Range/Units 01:03 01:03 01:03 WBC 8.5 (3.8-10.6) k/uL RBC 4.76 (4.30-5.90) m/uL Hgb 14.4 (13.0-17.5) gm/dL Hct 44.7 (39.0-53.0) % MCV 94.0 (80.0-100.0) fL MCH 30.3 (25.0-35.0) pg MCHC 32.2 (31.0-37.0) g/dL RDW 14.0 (11.5-15.5) % Plt Count 225 (150-450) k/uL Neutrophils % 62 % Lymphocytes % 26 % Monocytes % 6 % Eosinophils % 3 % Basophils % 1 % Neutrophils # 5.2 (1.3-7.7) k/uL Lymphocytes # 2.2 (1.0-4.8) k/uL Monocytes # 0.5 (0-1.0) k/uL Eosinophils # 0.3 (0-0.7) k/uL Basophils # 0.1 (0-0.2) k/uL Sodium 137 (137-145) mmol/L Potassium 3.7 (3.5-5.1) mmol/L Chloride 107 (98-107) mmol/L Carbon Dioxide 22 (22-30) mmol/L Anion Gap 8 mmol/L BUN 15 (9-20) mg/dL Creatinine 1.10 (0.66-1.25) mg/dL Est GFR (CKD-EPI)AfAm >90 (>60 ml/min/1.73 sqM) Est GFR (CKD-EPI)NonAf 85 (>60 ml/min/1.73 sqM) Glucose 114 H (74-99) mg/dL Calcium 9.6 (8.4-10.2) mg/dL Total Bilirubin 0.3 (0.2-1.3) mg/dL AST 20 (17-59) U/L ALT 14 (4-49) U/L Alkaline Phosphatase 69 (38-126) U/L Total Protein 7.2 (6.3-8.2) g/dL Albumin 4.3 (3.5-5.0) g/dL Lipase 110 (23-300) U/L Urine Color Yellow Urine Appearance Clear (Clear) Urine pH 6.0 (5.0-8.0) Ur Specific [place] 1.020 (1.001-1.035) Urine Protein Negative (Negative) Urine Glucose (UA) Negative (Negative) Urine Ketones Negative (Negative) Urine Blood Negative (Negative) Urine Nitrite Negative (Negative) Urine Bilirubin Negative (Negative) Urine Urobilinogen <2.0 (<2.0) mg/dL Ur Leukocyte Esterase Negative (Negative) Disposition Clinical Impression: Abdominal wall pain in right lower quadrant, Aortic aneurysm, Hypertension Disposition: HOME SELF-CARE Condition: Stable Additional Instructions: Follow up with Dr Gould on Saturday for evaluation of abdominal pain and discussion of blood pressure management. Contact vascular surgeon Dr. Stoddard's office for follow-up for your abdominal aneurysm Return to the ER fear abdominal pain becomes any worse she develop any nausea vomiting constipation or new or concerning symptoms Prescriptions: Ibuprofen [Motrin] 600 mg PO Q6HR PRN #30 tab PRN Reason: Pain Methocarbamol [Robaxin-750] 750 mg PO TID #30 tablet Is patient prescribed a controlled substance at d/c from ED?: No Referrals: Tre Gould MD [Primary Care Provider] - 1-2 days Kenny Kitchen DO [Doctor of Osteopathic Medicine] - 1-2 days
--- NOTE | 2019-12-18 02:50 | CT ---
EXAMINATION TYPE: CT abdomen pelvis w con DATE OF EXAM: 12/18/2019 COMPARISON: 07/10/2017 HISTORY: Rt Inguinal Pain, RLQ Abd Pain CT DLP: 858.90 mGycm Automated exposure control for dose reduction was used. CONTRAST: Performed with IV Contrast, patient injected with 100 mL of Isovue 300. Images were obtained from the diaphragm to the floor the pelvis with IV contrast. Lung bases are clear of consolidation. There is no pleural effusion. Heart size is normal. There is n o pericardial effusion. There is 1 cm cyst in the left lobe of the liver. Gallbladder appears normal. Bile ducts are not dila vandana. Spleen and stomach appear normal. Pancreas appears normal. There is no adrenal mass. Kidneys show satisfactory contrast opacification. There is no hydronephrosi s. Ureters are not dilated. Delayed images show normal renal excretion. There is no retroperitoneal a denopathy. There is 3.2 cm aneurysm of the lower abdominal aorta which extends into the common iliac arteries. Upper abdominal aorta appears fairly normal. The bladder distends smoothly. There is no ing uinal hernia. There is no free fluid in the pelvis. Appendix is not seen. There is no sign of thickened appendix. Lumbar vertebra have normal alignment. There is vacuum disc at L4-5 and L5-S1 with mild disc space na rrowing. The bony pelvis appears intact. There is no mesenteric edema. There is no ascites or free ai r. There is no bowel obstruction. There is some mild uniform wall thickening of loops of jejunum in t he left upper quadrant. Wall thickness measures up to 10 mm. IMPRESSION: There is some jejunal wall thickening in the left upper quadrant that is a change compared to old exa m. This could relate to gastroenteritis. Appendix not seen. No sign of appendicitis. There is 3.2 cm aneurysm lower abdominal aorta which is increased from 2.7 cm compared to old exam.
[2019-12-18] MEDS ORDERED: ORPHENADRINE 30 MG/ML 2 ML VIAL IM STA (04:04)
[2019-12-18] MEDS ORDERED: ACET/COD 300 MG/30 MG STARTER PACK 6 TAB BTL PO STA ×2 (04:05→04:07)
[2019-12-18 10:32] VITALS: BP 147/99; PULSE 60; RESP 18; TEMP 99.9
== END 2019-12-18 04:34 | disposition home or self-care (01) ==
LOC: EC 00:30
DX: I71.4 Abdominal aortic aneurysm, without rupture (principal); I10 Essential (primary) hypertension; F17.200 Nicotine dependence, unspecified, uncomplicated; Z91.14 Patient's other noncompliance with medication regimen; Z79.899 Other long term (current) drug therapy; Z91.012 Allergy to eggs; Z90.49 Acquired absence of other specified parts of digestive tract
CPT/HCPCS: 36415; 80053; 83690; 85025; 81003; 93975; 76870; 74177; 99284; 96374; 96375; 96372; 96361 ×4; J2270; J2360; J1885; Q9967

== ENCOUNTER 2020-01-14 21:40 | Emergency (ER) | payer OTHER ==
[2020-01-14 21:47] VITALS: BP 170/99; PULSE 90; RESP 20; TEMP 98.4
--- NOTE | 2020-01-14 22:32 | ED ---
Headache HPI - General Chief Complaint: Headache Stated Complaint: High blood pressure Time Seen by Provider: 01/14/20 21:59 Mode of arrival: ambulatory Limitations: no limitations - History of Present Illness Initial Comments: Patient's 39-year-old man with headache and hypertension, as I was going to the patient, he informed us that there was a childcare issues had to go take care of and he would return if the headache did not resolve. MD Complaint: headache - Related Data Home Medications Medication Instructions Recorded Confirmed Metoprolol Succinate [Toprol XL] 50 mg PO BID 07/11/17 07/10/17 Previous Rx's Medication Instructions Recorded HYDROcodone/APAP 5-325MG [[place] 1 - 2 tab PO Q6HR PRN #30 tab 07/12/17 5-325] Metoprolol Succinate (ER) [Toprol 50 mg PO BID #60 tab 07/12/17 Xl] Ibuprofen [Motrin] 600 mg PO Q6HR PRN #30 tab 12/18/19 Methocarbamol [Robaxin-750] 750 mg PO TID #30 tablet 12/18/19 Allergies Allergy/AdvReac Type Severity Reaction Status Date / Time egg Allergy Rash/Hives Verified 01/14/20 21:47 wool Allergy Rash/Hives Verified 01/14/20 21:47 Review of Systems ROS Statement: Those systems with pertinent positive or pertinent negative responses have been documented in the HPI. ROS Other: All systems not noted in ROS Statement are negative. Past Medical History Past Medical History: Hypertension Additional Past Medical History / Comment(s): patient broke right wrist playing basketball in 2002 History of Any Multi-Drug Resistant Organisms: None Reported Past Surgical History: No Surgical Hx Reported Past Psychological History: No Psychological Hx Reported Smoking Status: Current every day smoker Past Alcohol Use History: Occasional Past Drug Use History: Marijuana - Past Family History Father Family Medical History: No Reported History, Hypertension Mother Family Medical History: No Reported History General Exam Limitations: no limitations Course Vital Signs 01/14/20 21:44 Temperature 98.4 F Pulse Rate 90 Respiratory 20 Rate Blood Pressure 170/99 O2 Sat by Pulse 100 Oximetry Medical Decision Making - Medical Decision Making Patient is 39-year-old man with headache and elevated blood pressure unfortunately not able to complete history or physical as patient must leave to resolve a childcare issue. Understands risks associated and will return for full evaluation should things not resolve Disposition Clinical Impression: Hypertension, Headache Disposition: Left Against Medical Advice Condition: Undetermined Instructions (If sedation given, give patient instructions): Acute Headache (ED) Referrals: Tre Gould MD [Primary Care Provider] - 1-2 days
== END 2020-01-14 22:26 | disposition left against medical advice (07) ==
LOC: EC 21:40
DX: I10 Essential (primary) hypertension (principal); R51 Headache; F17.200 Nicotine dependence, unspecified, uncomplicated; Z79.899 Other long term (current) drug therapy; Z91.012 Allergy to eggs; Z91.048 Other nonmedicinal substance allergy status
CPT/HCPCS: 99283

== ENCOUNTER 2020-01-14 22:56 | Emergency (ER) | payer OTHER ==
[2020-01-14] MEDS ORDERED: LABETALOL 5 MG/ML VIAL MDV IVP STA (23:40)
[2020-01-14] MEDS ORDERED: NALOXONE 0.4 MG/ML 1 ML VIAL IVP STA (23:40)
--- NOTE | 2020-01-14 23:42 | ED ---
Chest Pain HPI - General Chief Complaint: Chest Pain Stated Complaint: Headache Time Seen by Provider: 01/14/20 23:25 Source: patient Mode of arrival: ambulatory Limitations: no limitations - History of Present Illness Initial Comments: This patient is 39-year-old man who presents to have evaluation for some chest discomfort and shortness of breath, as well as for hypertension. Patient states that he has history of hypertension usually taking metoprolol 25 mg twice per day. The patient states that he had run out approximately 2 days ago. Tonight, the patient was having some back pains, so he was given a couple of tablets of medication by his girlfriend. The patient subsequently started feeling like his chest was heavy and he was short of breath. He was subsequently informed that he had been given Suboxone. MD Complaint: chest pain -: hour(s) Onset: during rest Pain Location: left chest, right chest Pain Radiation: none Severity: mild Quality: heaviness Consistency: constant Improves With: nothing Worsens With: nothing Anginal Symptoms: dyspnea Treatments Prior to Arrival: other - Related Data Home Medications Medication Instructions Recorded Confirmed Metoprolol Succinate [Toprol XL] 50 mg PO BID 07/11/17 07/10/17 Previous Rx's Medication Instructions Recorded HYDROcodone/APAP 5-325MG [[place] 1 - 2 tab PO Q6HR PRN #30 tab 07/12/17 5-325] Metoprolol Succinate (ER) [Toprol 50 mg PO BID #60 tab 07/12/17 Xl] Ibuprofen [Motrin] 600 mg PO Q6HR PRN #30 tab 12/18/19 Methocarbamol [Robaxin-750] 750 mg PO TID #30 tablet 12/18/19 Metoprolol Tartrate 25 mg PO BID #28 tab 01/15/20 Allergies Allergy/AdvReac Type Severity Reaction Status Date / Time egg Allergy Rash/Hives Verified 01/14/20 23:03 wool Allergy Rash/Hives Verified 01/14/20 23:03 Review of Systems ROS Statement: Those systems with pertinent positive or pertinent negative responses have been documented in the HPI. ROS Other: All systems not noted in ROS Statement are negative. Constitutional: Denies: fever, chills Respiratory: Reports: as per HPI, dyspnea. Denies: cough, wheezes Cardiovascular: Reports: as per HPI, chest pain. Denies: palpitations, orthopnea, edema, syncope Endocrine: Reports: fatigue Gastrointestinal: Denies: abdominal pain, nausea, vomiting Genitourinary: Denies: dysuria, hematuria Musculoskeletal: Denies: back pain Skin: Denies: rash Neurological: Denies: headache, weakness, numbness Psychiatric: Reports: anxiety EKG Findings - EKG Results: EKG: interpreted by FERNANDO, sinus rhythm (Rate 63 bpm), normal axis, normal ST/T - Blocks, [place], Hypertrophy, ST Abn: Chamber hypertrophy or enlargement: left ventricular hypertrophy or enlargement (LVE) Past Medical History Past Medical History: Hypertension Additional Past Medical History / Comment(s): patient broke right wrist playing basketball in 2002 History of Any Multi-Drug Resistant Organisms: None Reported Past Surgical History: No Surgical Hx Reported Past Psychological History: No Psychological Hx Reported Smoking Status: Current every day smoker Past Alcohol Use History: Occasional Past Drug Use History: Marijuana - Past Family History Father Family Medical History: No Reported History, Hypertension Mother Family Medical History: No Reported History General Exam Limitations: no limitations General appearance: alert, in no apparent distress Head exam: Present: atraumatic, normocephalic Eye exam: Present: normal appearance. Absent: scleral icterus, conjunctival injection ENT exam: Present: normal oropharynx Neck exam: Present: normal inspection, full ROM Respiratory exam: Present: normal lung sounds bilaterally. Absent: respiratory distress, wheezes, rales, rhonchi, stridor Cardiovascular Exam: Present: regular rate, normal rhythm, normal heart sounds. Absent: systolic murmur, diastolic murmur, rubs, gallop GI/Abdominal exam: Present: soft. Absent: distended, tenderness, guarding, rebound, rigid, mass Extremities exam: Present: normal inspection, normal capillary refill. Absent: pedal edema, calf tenderness Back exam: Present: normal inspection. Absent: CVA tenderness (R), CVA tenderness (L) Neurological exam: Present: oriented X3, CN II-XII intact, other (Patient slightly somnolent, easily aroused to voice. GCS 15.). Absent: motor sensory deficit Skin exam: Present: warm, dry, intact, normal color. Absent: rash Course Vital Signs 01/14/20 01/15/20 01/15/20 22:59 00:20 01:09 Temperature 98.3 F 97.9 F Pulse Rate 78 61 Respiratory 20 16 18 Rate Blood Pressure 181/113 150/81 O2 Sat by Pulse 99 99 Oximetry Chest Pain MDM - MDM Patient is feeling instantly better following receiving Narcan. He would like to go home. Discussed the different half-lives of Narcan and Suboxone and the patient will have someone there who can watch him for increasing somnolence and unresponsiveness. Will return here if there is a difficulty. Disposition Clinical Impression: Hypertension Disposition: HOME SELF-CARE Condition: Good Instructions (If sedation given, give patient instructions): Hypertension (ED) Prescriptions: Metoprolol Tartrate 25 mg PO BID #28 tab Is patient prescribed a controlled substance at d/c from ED?: No Referrals: Tre Gould MD [Primary Care Provider] - 1-2 days
[2020-01-15 00:26] LABS: Basophils % (A) 1 %; Eosinophils # (A) 0.2 k/uL (0-0.7); Eosinophils % (A) 3 %; HCT 41.4 % (39.0-53.0); HGB 13.4 gm/dL (13.0-17.5); Lymphocytes # (A) 1.7 k/uL (1.0-4.8); Lymphocytes % (A) 30 %; MCH 31.2 pg (25.0-35.0); MCHC 32.3 g/dL (31.0-37.0); MCV 96.5 fL (80.0-100.0); Mean Platelet Volume 8.6; Monocytes # (A) 0.3 k/uL (0-1.0); Monocytes % (A) 6 %; Neutrophils # (A) 3.2 k/uL (1.3-7.7); Neutrophils % (A) 58 %; Platelet Count 186 k/uL (150-450); RDW 13.9 % (11.5-15.5); WBC 5.6 k/uL (3.8-10.6)
[2020-01-15 00:34] LABS: ALT 15 U/L (4-49); AST 25 U/L (17-59); African American GFR (CKD) >90 (>60 ml/min/1.73 sqM); Albumin 3.9 g/dL (3.5-5.0); Alkaline Phosphatase 53 U/L (38-126); Anion Gap 5 mmol/L; Blood Urea Nitrogen 14 mg/dL (9-20); Calcium 9.3 mg/dL (8.4-10.2); Carbon Dioxide 28 mmol/L (22-30); Chloride 104 mmol/L (98-107); Glucose 113 mg/dL (74-99); INR 0.9 (<1.2); Magnesium 2.1 mg/dL (1.6-2.3); Non-African American GFR(CKD) 86 (>60 ml/min/1.73 sqM); Partial Thromboplastin Time 28.3 sec (22.0-30.0); Potassium 4.1 mmol/L (3.5-5.1); Prothrombin Time 9.8 sec (9.0-12.0); Sodium 137 mmol/L (137-145); Total Bilirubin 0.3 mg/dL (0.2-1.3); Total Protein 6.5 g/dL (6.3-8.2)
--- NOTE | 2020-01-15 00:51 | XR ---
EXAMINATION TYPE: XR chest 1V DATE OF EXAM: 01/15/2020 COMPARISON: 04/18/2017 HISTORY: Chest pain TECHNIQUE: Single view FINDINGS: Heart and mediastinum are normal. Lungs are clear. Diaphragm is normal. Bony thorax appears normal. There are chest leads. Pulmonary vascularity is normal. IMPRESSION: Normal chest. No change.
[2020-01-15 01:11] VITALS: BP 150/81; PULSE 61; RESP 18; TEMP 97.9
== END 2020-01-15 01:11 | disposition home or self-care (01) ==
LOC: EC 22:56
DX: I10 Essential (primary) hypertension (principal); R40.0 Somnolence; F17.200 Nicotine dependence, unspecified, uncomplicated; Z79.899 Other long term (current) drug therapy; Z91.012 Allergy to eggs; Z91.09 Other allergy status, other than to drugs and biological substances
CPT/HCPCS: 99285; 96374; 96375; 36415; 93005; 80053; 83735; 84484; 85025; 85610; 85730; 71045; J2310

== ENCOUNTER 2020-11-26 19:01 | Emergency (ER) | payer OTHER ==
[2020-11-26 19:07] VITALS: BP 161/72; PULSE 81; RESP 19; TEMP 98.1
[2020-11-26] MEDS ORDERED: ACETAMINOPHEN TAB 500 MG TAB PO STA (19:16)
--- NOTE | 2020-11-26 19:41 | XR ---
Result: History: Pain. Comparison: None available. Technique: 3 views of the right ankle. 3 views of the right foot. Findings: The bone mineralization is appropriate for age. No acute fracture or dislocation of the right ankle or foot is seen. The visualized osseous structur es are in anatomic alignment. The joint spaces are preserved. The ankle mortise is congruent. Impression: No acute osseous abnormality of the right ankle or foot.
--- NOTE | 2020-11-26 19:43 | ED ---
Lower Extremity Injury HPI - General Chief Complaint: Extremity Injury, Lower Stated Complaint: rt ankle injury Time Seen by Provider: 11/26/20 19:10 Source: patient Mode of arrival: wheelchair Limitations: no limitations - History of Present Illness Initial Comments: 40-year-old male patient presents to the emergency department today for evaluation of right ankle and foot pain and swelling. Patient states that yesterday he stumbled down 2-3 stairs causing a twisting injury to the right ankle. Patient states that he did have some discomfort initially when he woke today there is significant swelling and increased pain. States hurts worse with ambulation or movement of the ankle. Denies numbness or tingling to the foot or toes. Denies any falls or other injuries with this. States he did take ibuprofen about 4 hours ago. Patient denies any headache, neck pain, back pain, chest pain, shortness of breath, dizziness, weakness, abdominal pain, nausea, vomiting, or difficulties with bowel movements or urination. - Related Data Home Medications Medication Instructions Recorded Confirmed Metoprolol Succinate [Toprol XL] 50 mg PO BID 07/11/17 07/10/17 Previous Rx's Medication Instructions Recorded HYDROcodone/APAP 5-325MG [[place] 1 - 2 tab PO Q6HR PRN #30 tab 07/12/17 5-325] Metoprolol Succinate (ER) [Toprol 50 mg PO BID #60 tab 07/12/17 Xl] Ibuprofen [Motrin] 600 mg PO Q6HR PRN #30 tab 12/18/19 Methocarbamol [Robaxin-750] 750 mg PO TID #30 tablet 12/18/19 Metoprolol Tartrate 25 mg PO BID #28 tab 01/15/20 Allergies Allergy/AdvReac Type Severity Reaction Status Date / Time egg Allergy Rash/Hives Verified 01/14/20 23:03 wool Allergy Rash/Hives Verified 01/14/20 23:03 Review of Systems ROS Statement: Those systems with pertinent positive or pertinent negative responses have been documented in the HPI. ROS Other: All systems not noted in ROS Statement are negative. Past Medical History Past Medical History: Hypertension Additional Past Medical History / Comment(s): patient broke right wrist playing basketball in 2002 History of Any Multi-Drug Resistant Organisms: None Reported Past Surgical History: No Surgical Hx Reported Past Psychological History: No Psychological Hx Reported Smoking Status: Current every day smoker Past Alcohol Use History: Occasional Past Drug Use History: Marijuana - Past Family History Father Family Medical History: No Reported History, Hypertension Mother Family Medical History: No Reported History General Exam Limitations: no limitations General appearance: alert, in no apparent distress, other (This is a well- developed, well-nourished adult male patient in no acute distress. Vital signs upon presentation temperature 98.1F, pulse 81, respirations 19, blood pressure 161/72, pulse ox 98% on room air.) Respiratory exam: Present: normal lung sounds bilaterally. Absent: respiratory distress, wheezes, rales, rhonchi, stridor Cardiovascular Exam: Present: regular rate, normal rhythm, normal heart sounds. Absent: systolic murmur, diastolic murmur, rubs, gallop, clicks Extremities exam: Present: full ROM, tenderness (Right fifth metatarsal, right lateral malleolus), normal capillary refill, other (There is soft tissue swelling over the dorsal aspect of the right foot and surrounding the right ankle. Skin is otherwise pink, warm, dry. Cap refill less than 3 seconds. Pedal and posttibial pulses 2+.). Absent: normal inspection, pedal edema, joint swelling, calf tenderness Neurological exam: Present: alert, oriented X3, CN II-XII intact Psychiatric exam: Present: normal affect, normal mood Skin exam: Present: warm, dry, intact, normal color. Absent: rash Course Vital Signs 11/26/20 19:04 Temperature 98.1 F Pulse Rate 81 Respiratory 19 Rate Blood Pressure 161/72 O2 Sat by Pulse 98 Oximetry Procedures - Orthopedic Splinting/Casting Injury #1 Side: right Lower Extremity Injury Location: ankle, foot Lower Extremity Immobilizer: AirCast, Kiel wrap Medical Decision Making - Medical Decision Making 40-year-old male patient presents to the emergency department today for evaluation of right ankle and foot pain and swelling. Physical examination did reveal soft tissue swelling over the dorsal aspect of the right foot and surrounding the right ankle. Neurovascular status was intact. X-ray of the foot and ankle were obtained and were negative for any acute fracture. I did discuss sprain as a cause for his symptoms. He is placed in an Kiel wrap for compression and given an ankle stirrup splint. Educated regarding rest, ice, elevation. Instructed to take Tylenol Motrin for pain control. He is instructed to follow-up with his primary care physician for recheck in one week if his symptoms are not improved. Return parameters were discussed in detail. He verbalizes understanding and agrees with this plan. My attending is Dr. Coleman. - Radiology Data Radiology results: report reviewed, image reviewed X-ray of the right ankle and foot are obtained. Report was reviewed in its entirety. Impression by Dr. Carson shows no acute osseous abnormality of the right ankle or foot. Disposition Clinical Impression: Right ankle sprain Disposition: HOME SELF-CARE Condition: Good Instructions (If sedation given, give patient instructions): Ankle Sprain (ED) Additional Instructions: Rest, ice, elevate the ankle. Use wrap and splint for compression and support. Take Tylenol and Motrin for pain control. Follow-up through primary care physician for recheck if her symptoms are not improved over the next week to 10 days. Return for any new, worsening, or concerning symptoms. Is patient prescribed a controlled substance at d/c from ED?: No Referrals: Tre Gould MD [Primary Care Provider] - 1-2 days Time of Disposition: 19:43
[2020-11-26] MEDS ORDERED: ACET/COD 300 MG/30 MG STARTER PACK 6 TAB BTL PO STA (20:05)
== END 2020-11-26 20:10 | disposition home or self-care (01) ==
LOC: EC 19:01
DX: S93.401A Sprain of unspecified ligament of right ankle, initial encounter (principal); X50.1XXA Overexertion from prolonged static or awkward postures, initial encounter; I10 Essential (primary) hypertension; F17.200 Nicotine dependence, unspecified, uncomplicated; F12.90 Cannabis use, unspecified, uncomplicated
CPT/HCPCS: 29515; 99283

== ENCOUNTER 2021-05-12 07:09 | Inpatient (IN) | payer OTHER ==
[2021-05-12 07:25] LABS: Glucose,Whole Blood 125 mg/dL (75-99)
[2021-05-12] MEDS ORDERED: hydrALAZINE HCL 20 MG/ML 1 ML VIAL IVP STA ×2 (07:30→08:24)
--- NOTE | 2021-05-12 07:45 | ED ---
General Adult HPI - General Chief complaint: Dizziness Stated complaint: Weakness/Low HR Time Seen by Provider: 05/12/21 07:10 Source: patient, EMS, RN notes reviewed, old records reviewed Mode of arrival: EMS Limitations: no limitations - History of Present Illness Initial comments: This is a 41-year-old male who presents to the emergency department complaining that his blood pressures elevated. Patient's past medical history of aortic aneurysm repair 2 per the patient. Patient states his last one was in March of this year. Patient states yesterday he was very sick and vomiting and went to [facility] and was discharged. Patient states he comes back today because his blood pressure was elevated again this morning. Patient denies any chest pain or difficulty breathing. Patient denies any abdominal pain. Patient denies any nausea currently. Patient states he does have some lower back pain. Patient denies any recent fever chills or cough. Patient states he did not get the COVID vaccine. Patient denies any headache patient denies lightheadedness or dizziness. - Related Data Home Medications Medication Instructions Recorded Confirmed Acetaminophen Tab [Tylenol] 650 mg PO Q6H PRN 05/12/21 05/12/21 Ascorbic Acid [Vitamin C] 500 mg PO DAILY 05/12/21 05/12/21 Aspirin 325 mg PO DAILY 05/12/21 05/12/21 Cyclobenzaprine [Flexeril] 10 mg PO TID PRN 05/12/21 05/12/21 Ergocalciferol [Vitamin D2 (1250 1,250 mcg PO Q30D 05/12/21 05/12/21 Mcg = 54220 Iu)] Ferrous Sulfate [Feosol] 325 mg PO DAILY 05/12/21 05/12/21 HYDROcodone/APAP 7.5-325MG [[place] 1 tab PO TID PRN 05/12/21 05/12/21 7.5-325] Ibuprofen [Motrin] 800 mg PO QID PRN 05/12/21 05/12/21 Metoprolol Tartrate [Lopressor] 100 mg PO TID 05/12/21 05/12/21 Multivitamin with Iron 1 tab PO DAILY 05/12/21 05/12/21 [Multivitamins with Iron] amLODIPine [Norvasc] 10 mg PO DAILY 05/12/21 05/12/21 cloNIDine HCL [Catapres] 0.6 mg PO TID 05/12/21 05/12/21 hydrALAZINE HCL [Apresoline] 100 mg PO TID 05/12/21 05/12/21 hydroCHLOROthiazide [Hydrodiuril] 50 mg PO DAILY 05/12/21 05/12/21 oxyCODONE HCL [oxyCODONE HCL (IR)] 10 mg PO Q6H PRN 05/12/21 05/12/21 Allergies Allergy/AdvReac Type Severity Reaction Status Date / Time JASMYN Inhibitors Allergy per Verified 05/12/21 09:14 paperwork from of egg Allergy Rash/Hives Verified 05/12/21 09:14 wool Allergy Rash/Hives Verified 05/12/21 09:14 Review of Systems ROS Statement: Those systems with pertinent positive or pertinent negative responses have been documented in the HPI. ROS Other: All systems not noted in ROS Statement are negative. Past Medical History Past Medical History: Hypertension Additional Past Medical History / Comment(s): patient broke right wrist playing basketball in 2002 History of Any Multi-Drug Resistant Organisms: None Reported Past Surgical History: No Surgical Hx Reported Past Psychological History: No Psychological Hx Reported Smoking Status: Current every day smoker Past Alcohol Use History: Occasional Past Drug Use History: Marijuana - Past Family History Father Family Medical History: No Reported History, Hypertension Mother Family Medical History: No Reported History General Exam - General Exam Comments Initial Comments: GENERAL: Patient is well-developed and well-nourished. Patient is nontoxic and well-hydr ated and is in no acute distress. ENT: Neck is soft and supple. No significant lymphadenopathy is noted. Oropharynx is clear. Moist mucous membranes. Neck has full range of motion without eliciting any pain. EYES: The sclera were anicteric and conjunctiva were pink and moist. Extraocular mo vements were intact and pupils were equal round and reactive to light. Eyelids were unremarkable. PULMONARY: Unlabored respirations. Good breath sounds bilaterally. No audible rales rhonchi or wheezing was noted. CARDIOVASCULAR: There is a regular rate and rhythm without any murmurs gallops or rubs. ABDOMEN: Soft and nontender with normal bowel sounds. SKIN: Skin is clear with no lesions or rashes and otherwise unremarkable. NEUROLOGIC: Patient is alert and oriented x3. Cranial nerves II through XII are grossly intact. Motor and sensory are also intact. Normal speech, volume and content. Symmetrical smile. MUSCULOSKELETAL: Normal extremities with adequate strength and full range of motion. No lower extremity swelling or edema. No calf tenderness. LYMPHATICS: No significant lymphadenopathy is noted PSYCHIATRIC: Normal psychiatric evaluation. Limitations: no limitations Course Vital Signs 05/12/21 05/12/21 05/12/21 07:12 07:54 08:48 Temperature 98.6 F Pulse Rate 52 L 53 L 74 Respiratory 16 18 18 Rate Blood Pressure 200/93 137/95 217/84 O2 Sat by Pulse 98 98 98 Oximetry 05/12/21 09:32 Temperature Pulse Rate 82 Respiratory 18 Rate Blood Pressure 203/90 O2 Sat by Pulse 98 Oximetry Medical Decision Making - Medical Decision Making EKG shows sinus bradycardia at [address] interval is on a 34 QRS is 94 QT interval is 532 QTC is 465. Patient's EKG shows no ST segment elevation or depression. Chest x-ray shows some atelectasis in the left lung. I spoke with Dr. Dean and he stated that he reviewed the CAT scan that the patient had yesterday at [facility] and indicated the patient did not need to be transferred and he indicated that the patient would not be able to find a bed at [facility] at this time unless there was emergent need for surgery. He indicated there was no need for surgery at this time. He also stated that he did not think it was necessary CAT scan the patient today because he had one less than 24 hours ago. I spoke with Dr. Gutiérrez and he agreed to admit the patient admitted the patient wrote admitting orders. Patient received multiple doses of hydralazine in the emergency department also was placed on a Cardene drip. I admitted the patient wrote admitting orders I consulted cardiology - Lab Data Result diagrams: 05/12/21 07:32 05/12/21 07:32 Lab Results 05/12/21 05/12/21 05/12/21 Range/Units 07:24 07:32 07:32 WBC 11.1 H (3.8-10.6) k/uL RBC 3.89 L (4.30-5.90) m/uL Hgb 11.4 L (13.0-17.5) gm/dL Hct 35.2 L (39.0-53.0) % MCV 90.6 (80.0-100.0) fL MCH 29.3 (25.0-35.0) pg MCHC 32.3 (31.0-37.0) g/dL RDW 16.5 H (11.5-15.5) % Plt Count 237 (150-450) k/uL MPV 7.8 Neutrophils % 84 % Lymphocytes % 8 % Monocytes % 6 % Eosinophils % 1 % Basophils % 0 % Neutrophils # 9.3 H (1.3-7.7) k/uL Lymphocytes # 0.9 L (1.0-4.8) k/uL Monocytes # 0.7 (0-1.0) k/uL Eosinophils # 0.1 (0-0.7) k/uL Basophils # 0.0 (0-0.2) k/uL Anisocytosis Slight PT 11.7 (9.0-12.0) sec INR 1.1 (<1.2) APTT 24.9 (22.0-30.0) sec Sodium (137-145) mmol/L Potassium (3.5-5.1) mmol/L Chloride (98-107) mmol/L Carbon Dioxide (22-30) mmol/L Anion Gap mmol/L BUN (9-20) mg/dL Creatinine (0.66-1.25) mg/dL Est GFR (CKD-EPI)AfAm (>60 ml/min/1.73 sqM) Est GFR (CKD-EPI)NonAf (>60 ml/min/1.73 sqM) Glucose (74-99) mg/dL POC Glucose (mg/dL) 125 H (75-99) mg/dL POC Glu Jumpbasting Lining Baster ID Suyapa Chavez Calcium (8.4-10.2) mg/dL Magnesium (1.6-2.3) mg/dL Total Bilirubin (0.2-1.3) mg/dL AST (17-59) U/L ALT (4-49) U/L Alkaline Phosphatase (38-126) U/L Troponin I (0.000-0.034) ng/mL Total Protein (6.3-8.2) g/dL Albumin (3.5-5.0) g/dL Coronavirus (PCR) (Not Detectd) 05/12/21 05/12/21 05/12/21 Range/Units 07:32 07:32 07:32 WBC (3.8-10.6) k/uL RBC (4.30-5.90) m/uL Hgb (13.0-17.5) gm/dL Hct (39.0-53.0) % MCV (80.0-100.0) fL MCH (25.0-35.0) pg MCHC (31.0-37.0) g/dL RDW (11.5-15.5) % Plt Count (150-450) k/uL MPV Neutrophils % % Lymphocytes % % Monocytes % % Eosinophils % % Basophils % % Neutrophils # (1.3-7.7) k/uL Lymphocytes # (1.0-4.8) k/uL Monocytes # (0-1.0) k/uL Eosinophils # (0-0.7) k/uL Basophils # (0-0.2) k/uL Anisocytosis PT (9.0-12.0) sec INR (<1.2) APTT (22.0-30.0) sec Sodium 139 (137-145) mmol/L Potassium 3.2 L (3.5-5.1) mmol/L Chloride 101 (98-107) mmol/L Carbon Dioxide 26 (22-30) mmol/L Anion Gap 12 mmol/L BUN 13 (9-20) mg/dL Creatinine 0.83 (0.66-1.25) mg/dL Est GFR (CKD-EPI)AfAm >90 (>60 ml/min/1.73 sqM) Est GFR (CKD-EPI)NonAf >90 (>60 ml/min/1.73 sqM) Glucose 131 H (74-99) mg/dL POC Glucose (mg/dL) (75-99) mg/dL POC Glu Jumpbasting Lining Baster ID Calcium 9.7 (8.4-10.2) mg/dL Magnesium 1.4 L (1.6-2.3) mg/dL Total Bilirubin 0.5 (0.2-1.3) mg/dL AST 22 (17-59) U/L ALT 14 (4-49) U/L Alkaline Phosphatase 77 (38-126) U/L Troponin I 0.035 H* (0.000-0.034) ng/mL Total Protein 8.8 H (6.3-8.2) g/dL Albumin 4.1 (3.5-5.0) g/dL Coronavirus (PCR) Not Detected (Not Detectd) Disposition Clinical Impression: Hypertensive urgency, Back pain Disposition: ADMITTED IP TO THIS [facility] Referrals: Tre Gould MD [Primary Care Provider] - 1-2 days Time of Disposition: 09:35
[2021-05-12] MEDS ORDERED: HYDROmorphone 0.5 MG/0.5 ML SYRINGE IVP STA ×2 (07:53→11:17)
[2021-05-12 07:55] LABS: Anisocytosis Slight; Basophils % (A) 0 %; Eosinophils # (A) 0.1 k/uL (0-0.7); Eosinophils % (A) 1 %; HCT 35.2 % (39.0-53.0); HGB 11.4 gm/dL (13.0-17.5); Lymphocytes # (A) 0.9 k/uL (1.0-4.8); Lymphocytes % (A) 8 %; MCH 29.3 pg (25.0-35.0); MCHC 32.3 g/dL (31.0-37.0); MCV 90.6 fL (80.0-100.0); Mean Platelet Volume 7.8; Monocytes # (A) 0.7 k/uL (0-1.0); Monocytes % (A) 6 %; Neutrophils # (A) 9.3 k/uL (1.3-7.7); Neutrophils % (A) 84 %; Platelet Count 237 k/uL (150-450); RBC 3.89 m/uL (4.30-5.90); RDW 16.5 % (11.5-15.5); WBC 11.1 k/uL (3.8-10.6)
[2021-05-12 08:07] LABS: ALT 14 U/L (4-49); AST 22 U/L (17-59); African American GFR (CKD) >90 (>60 ml/min/1.73 sqM); Albumin 4.1 g/dL (3.5-5.0); Alkaline Phosphatase 77 U/L (38-126); Anion Gap 12 mmol/L; Blood Urea Nitrogen 13 mg/dL (9-20); Calcium 9.7 mg/dL (8.4-10.2); Carbon Dioxide 26 mmol/L (22-30); Chloride 101 mmol/L (98-107); Glucose 131 mg/dL (74-99); Magnesium 1.4 mg/dL (1.6-2.3); Non-African American GFR(CKD) >90 (>60 ml/min/1.73 sqM); Potassium 3.2 mmol/L (3.5-5.1); Sodium 139 mmol/L (137-145); Total Bilirubin 0.5 mg/dL (0.2-1.3); Total Protein 8.8 g/dL (6.3-8.2)
[2021-05-12 08:08] LABS: INR 1.1 (<1.2); Partial Thromboplastin Time 24.9 sec (22.0-30.0); Prothrombin Time 11.7 sec (9.0-12.0)
--- NOTE | 2021-05-12 08:26 | XR ---
EXAMINATION TYPE: XR chest 2V DATE OF EXAM: 05/12/2021 COMPARISON: Chest x-ray January 15, 2020 HISTORY: Chest pain and bradycardia. TECHNIQUE: Frontal and lateral views of the chest are obtained. FINDINGS: There is a stent graft in the thoracic aorta. Curvilinear calcifications along embolizati on clips left medial thorax are now present. There is patchy left basilar opacity. Right lung is angela r. The osseous structures are intact. Cardiac silhouette size is stable and within normal limits. IMPRESSION: Patchy left basilar acute infiltrate and/or atelectasis.
[2021-05-12] MEDS ORDERED: niCARdipine 20 MG in SODIUM CHLORIDE 0.9% 192 ML IV SCH (08:30)
[2021-05-12] MEDS ORDERED: NITROGLYCERIN SL TABS 0.4 MG TAB SUBLINGUAL PRN (09:36)
[2021-05-12] MEDS ORDERED: HYDROcodone/APAP 7.5-325MG 1 EACH TAB PO PRN (09:37)
[2021-05-12] MEDS ORDERED: NITROGLYCERIN-D5W PMX 50 MG in DEXTROSE/WATER 1 250ML.BAG IV ONE (10:08)
[2021-05-12 12:44] LABS: Amphetamine Screen,Urine Not Detected (NotDetected); Barbiturate Screen,Urine Not Detected (NotDetected); Benzodiazepines Screen,Urine Detected (NotDetected); Cocaine Screen,Urine Not Detected (NotDetected); Methadone Screen, Urine Not Detected (NotDetected); Opiate Screen,Urine Detected (NotDetected); Oxycodone Screen, Urine Not Detected (NotDetected); Phencyclidine Screen,Urine Not Detected (NotDetected); Tricyclic Antidepressant,Urine Not Detected (NotDetected); Urn Cannabinoid Scrn Detected (NotDetected)
--- NOTE | 2021-05-12 13:05 | P.CRDCN ---
History of Present Illness Consult date: 05/12/21 History of present illness: HISTORY OF PRESENT ILLNESS: This is a 41-year-old male with a past medical history significant for hypertension and aortic aneurysm with surgical repair 2 last in March. Patient follows with a Dr. Hopper at the [facility]. We have been asked to see the patient in consultation for hypertension. Patient examined at the bedside. Patient states he presented to the hospital this morning because his blood pressure was elevated at home. He states his blood pressure usually runs between 130 and 140. The patient states he was not feeling well yesterday and was nauseated with episodes of vomiting. He states he took his blood pressure medications yesterday but is unsure of how much stayed down due to his vomiting. The patient went to [facility] to be evaluated and was discharged home. He denies chest pain or pressure. Denies shortness of breath. Denies dizziness or lightheadedness. Denies back pain. Denies palpitations. The patient was started on a Cardene drip and a nitro drip in the ER. His blood pressure is 191/75 at the time of my examination. He has not been resumed on his home antihypertensive medications at the time of my evaluation. The patient does report he is a cigarette smoker and smokes approximately 1/2 per day. He also reports occasional alcohol use. He also reports marijuana use. EKG reveals sinus bradycardia with a heart rate of 46. Telemetry reveals sinus mechanism with a heart rate in the 80s. Chest xray patchy left basilar Infiltrate and/or atelectasis Laboratory data: WBC 11.1. Hemoglobin 11.4. Platelet count 237. Sodium 139. Potassium 3.2. BUN 13. Creatinine 0.83. Troponin 0.035. 0.035. Magnesium 1.4. Current home cardiac medications include metoprolol tartrate 100 mg 3 times a day, amlodipine 10 mg daily, aspirin 325 mg daily, hydrochlorothiazide 50 mg daily, hydralazine 100 mg 3 times a day, and Catapres 0.60mg 3 times a day REVIEW OF SYSTEMS: At the time of my exam: CONSTITUTIONAL: Denies fever or chills. HEENT: Denies blurred vision, vision changes, or eye pain. Denies hemoptysis CARDIOVASCULAR: Denies chest pain. Denies orthopnea. Denies PND. Denies palpitations RESPIRATORY: Denies shortness of breath. GASTROINTESTINAL: Denies abdominal pain. Denies nausea or vomiting. HEMATOLOGIC: Denies bleeding disorders. GENITOURINARY: Denies any blood in urine. SKIN: Denies pruitis. Denies rash. PHYSICAL EXAM: VITAL SIGNS: Reviewed. GENERAL: Well-developed in no acute distress. HEENT: Head is normocephalic. Pupils are equal, round. Sclerae anicteric. Mucous membranes of the mouth are moist. Neck supple. No JVD or thyromegaly LUNGS: Respirations even and unlabored. Lungs essentially clear to auscultation bilaterally. HEART: Regular rate and rhythm. S1 and S2 heard. Systolic murmur noted. ABDOMEN: Soft. Nondistended. Nontender. EXTREMITIES: Normal range of motion. No clubbing or cyanosis. Peripheral pulses intact. No lower extremity edema NEUROLOGIC: Awake and alert. Oriented x 3. ASSESSMENT: Nausea and vomiting, resolved Hypertensive urgency History of hypertension History of aortic aneurysm with surgical repair 2 Hypokalemia Hypomagnesemia Nicotine dependence Marijuana use PLAN: Obtain 2D echo to assess cardiac structure and function Resume home cardiac medications Discontinue Cardene Wean off Nitro drip Give 60meq KDur Give 2gram magnesium IVPB Monitor blood pressure Smoking cessation recommended Recommend abstinence from marijuana use Further recommendations pending patient course Nurse practitioner note has been reviewed by physician. Signing provider agrees with the documented findings, assessment, and plan of care. Past Medical History Past Medical History: Hypertension Additional Past Medical History / Comment(s): patient broke right wrist playing basketball in 2002 History of Any Multi-Drug Resistant Organisms: None Reported Past Surgical History: No Surgical Hx Reported Past Psychological History: No Psychological Hx Reported Smoking Status: Current every day smoker Past Alcohol Use History: Occasional Past Drug Use History: Marijuana - Past Family History Father Family Medical History: No Reported History, Hypertension Mother Family Medical History: No Reported History Medications and Allergies Home Medications Medication Instructions Recorded Confirmed Type Acetaminophen Tab [Tylenol] 650 mg PO Q6H PRN 05/12/21 05/12/21 History Ascorbic Acid [Vitamin C] 500 mg PO DAILY 05/12/21 05/12/21 History Aspirin 325 mg PO DAILY 05/12/21 05/12/21 History Cyclobenzaprine [Flexeril] 10 mg PO TID PRN 05/12/21 05/12/21 History Ergocalciferol [Vitamin D2 (1250 1,250 mcg PO Q30D 05/12/21 05/12/21 History Mcg = 58999 Iu)] Ferrous Sulfate [Feosol] 325 mg PO DAILY 05/12/21 05/12/21 History HYDROcodone/APAP 7.5-325MG [[place] 1 tab PO TID PRN 05/12/21 05/12/21 History 7.5-325] Ibuprofen [Motrin] 800 mg PO QID PRN 05/12/21 05/12/21 History Metoprolol Tartrate [Lopressor] 100 mg PO TID 05/12/21 05/12/21 History Multivitamin with Iron 1 tab PO DAILY 05/12/21 05/12/21 History [Multivitamins with Iron] amLODIPine [Norvasc] 10 mg PO DAILY 05/12/21 05/12/21 History cloNIDine HCL [Catapres] 0.6 mg PO TID 05/12/21 05/12/21 History hydrALAZINE HCL [Apresoline] 100 mg PO TID 05/12/21 05/12/21 History hydroCHLOROthiazide [Hydrodiuril] 50 mg PO DAILY 05/12/21 05/12/21 History oxyCODONE HCL [oxyCODONE HCL (IR)] 10 mg PO Q6H PRN 05/12/21 05/12/21 History Allergies Allergy/AdvReac Type Severity Reaction Status Date / Time JASMYN Inhibitors Allergy per Verified 05/12/21 09:14 paperwork from [facility] egg Allergy Rash/Hives Verified 05/12/21 09:14 wool Allergy Rash/Hives Verified 05/12/21 09:14 quetiapine [From Seroquel] AdvReac Hallucinati Verified 05/12/21 10:59 ons Physical Exam Vitals: Vital Signs Temp Pulse Resp BP Pulse Ox 05/12/21 11:48 73 18 156/75 98 05/12/21 11:20 84 18 156/90 05/12/21 10:59 78 18 164/133 05/12/21 09:32 82 18 203/90 98 05/12/21 08:48 74 18 217/84 98 05/12/21 07:54 53 L 18 137/95 98 05/12/21 07:12 98.6 F 52 L 16 200/93 98 Intake and Output 05/11/21 05/12/21 05/12/21 22:59 06:59 14:59 Intake Total 202.600 Balance 202.600 Intake: Intake, IV Titration 202.600 Amount Nitroglycerin-D5w Pmx 50 2.6 mg In Dextrose/Water 1 250ml.bag @ 10 MCG/MIN 3 mls/hr IV .Q24H ONE Rx#: [id number] niCARdipine 20 mg In 200.000 Sodium Chloride 0.9% 192 ml @ 5 MG/HR 50 mls/hr IV .Q4H REPLACED BY [facility] Rx#:[id number] Other: Weight 81.193 kg Results 05/12/21 07:32 05/12/21 07:32 Cardiac Enzymes 05/12/21 05/12/21 05/12/21 Range/Units 07:32 07:32 10:42 AST 22 (17-59) U/L Troponin I 0.035 H* 0.035 H* (0.000-0.034) ng/mL Coagulation 05/12/21 Range/Units 07:32 PT 11.7 (9.0-12.0) sec APTT 24.9 (22.0-30.0) sec CBC 05/12/21 Range/Units 07:32 WBC 11.1 H (3.8-10.6) k/uL RBC 3.89 L (4.30-5.90) m/uL Hgb 11.4 L (13.0-17.5) gm/dL Hct 35.2 L (39.0-53.0) % Plt Count 237 (150-450) k/uL Comprehensive Metabolic Panel 05/12/21 Range/Units 07:32 Sodium 139 (137-145) mmol/L Potassium 3.2 L (3.5-5.1) mmol/L Chloride 101 (98-107) mmol/L Carbon Dioxide 26 (22-30) mmol/L BUN 13 (9-20) mg/dL Creatinine 0.83 (0.66-1.25) mg/dL Glucose 131 H (74-99) mg/dL Calcium 9.7 (8.4-10.2) mg/dL AST 22 (17-59) U/L ALT 14 (4-49) U/L Alkaline Phosphatase 77 (38-126) U/L Total Protein 8.8 H (6.3-8.2) g/dL Albumin 4.1 (3.5-5.0) g/dL Current Medications Generic Name Dose Route Start Last Admin Trade Name Freq PRN Reason Stop Dose Admin Hydrocodone Bitart/Acetaminophen 1 each 05/12/21 09:37 05/12/21 10:07 Hydrocodone/Apap 7.5-325mg 1 Each Tab PO 1 each TID PRN Administration Pain Amlodipine Besylate 10 mg 05/12/21 12:45 Amlodipine 10 Mg Tab PO DAILY REPLACED BY [facility] Aspirin 325 mg 05/13/21 09:00 Aspirin 325 Mg Tab PO DAILY REPLACED BY [facility] Clonidine 0.6 mg 05/12/21 12:45 Clonidine Hcl 0.2 Mg Tab PO TID REPLACED BY [facility] Hydralazine HCl 100 mg 05/12/21 16:00 Hydralazine Hcl 50 Mg Tab PO TID REPLACED BY [facility] Hydrochlorothiazide 50 mg 05/12/21 12:45 Hydrochlorothiazide 25 Mg Tab PO DAILY REPLACED BY [facility] Nitroglycerin/Dextrose 50 mg/ 250 mls @ 3 mls/hr 05/12/21 10:08 05/12/21 11:00 IV Solution IV 05/13/21 10:07 30 mcg/min .Q24H ONE 9 mls/hr Titration Protocol 10 MCG/MIN Metoprolol Tartrate 100 mg 05/12/21 12:45 Metoprolol Tartrate 50 Mg Tab PO TID REPLACED BY [facility] Nitroglycerin 0.4 mg 05/12/21 09:36 Nitroglycerin Sl Tabs 0.4 Mg Tab SUBLINGUAL Q5M PRN Chest Pain Intake and Output 05/11/21 05/12/21 05/12/21 22:59 06:59 14:59 Intake Total 202.600 Balance 202.600 Intake: Intake, IV Titration 202.600 Amount Nitroglycerin-D5w Pmx 50 2.6 mg In Dextrose/Water 1 250ml.bag @ 10 MCG/MIN 3 mls/hr IV .Q24H ONE Rx#: [id number] niCARdipine 20 mg In 200.000 Sodium Chloride 0.9% 192 ml @ 5 MG/HR 50 mls/hr IV .Q4H REPLACED BY [facility] Rx#:[id number] Other: Weight 81.193 kg Patient Weight 05/13/21 06:59 Weight 81.193 kg 05/12/21 07:32 05/12/21 07:32
[2021-05-12] MEDS: cloNIDine HCL 0.2 MG TAB PO SCH ×3 (13:28→23:39)
[2021-05-12] MEDS: METOPROLOL TARTRATE 50 MG TAB PO SCH ×3 (13:28→23:39)
[2021-05-12] MEDS: hydrALAZINE HCL 50 MG TAB PO SCH ×2 (13:29→23:38)
[2021-05-12] MEDS: POTASSIUM CHLORIDE ER 20 MEQ TAB.ER PO SCH ×3 (13:30→18:47)
[2021-05-12] MEDS: amLODIPine 10 MG TAB PO SCH (13:31)
[2021-05-12] MEDS: MAGNESIUM SULFATE-D5W PMX 1 GM in DEXTROSE/WATER 1 100ML.BAG IVPB SCH ×2 (13:34→17:50)
[2021-05-12] MEDS: hydroCHLOROthiazide 25 MG TAB PO SCH (13:40)
--- NOTE | 2021-05-12 16:23 | ECHOF ---
Referral Reason:hypertension, LV function MEASUREMENTS -------- HEIGHT: 185.4 cm WEIGHT: 81.2 kg BP: RVIDd: 3.1 cm (< 3.3) IVSd: 1.7 cm (0.6 - 1.1) LVIDd: 2.9 cm (3.9 - 5.3) LVPWd: 1.9 cm (0.6 - 1.1) IVSs: 2.2 cm LVIDs: 2.0 cm LVPWs: 2.2 cm Ao Diam: 3.5 cm (2.0 - 3.7) AV Cusp: 2.6 cm (1.5 - 2.6) LA Diam: 3.2 cm (2.7 - 3.8) MV EXCURSION: 18.742 mm (> 18.000) MV EF SLOPE: 110 mm/s (70 - 150) EPSS: 0.5 cm MV E Ze: 0.79 m/s MV DecT: 249 ms MV A Ze: 0.71 m/s MV E/A Ratio: 1.11 RAP: 5.00 mmHg RVSP: 15.73 mmHg FINDINGS -------- This was a technically good study. The left ventricular size is normal. There is severe concentric left ventricular hypertrophy. Ove rall left ventricular systolic function is normal with, an EF between 55 - 60 %. The diastolic fill ing pattern is normal for the age of the patient 7.43. The right ventricle is normal in size. The left atrial size is normal. Normal LA size by volume 22+/-6 ml/m2. The right atrial size is normal. Interatrial and interventricular septum intact. The aortic valve is trileaflet and appears structurally normal. The mitral valve is normal. The mitral valve leaflets are mildly thickened. There is trace mitral regurgitation. The tricuspid valve appears structurally normal. Trace tricuspid regurgitation present. Right yasir tricular systolic pressure is normal at < 35 mmHg. There is no pulmonic regurgitation present. The aortic root size is normal. Normal inferior vena cava with normal inspiratory collapse consistent with estimated right atrial pre ssure of 5 mmHg. There is no pericardial effusion. CONCLUSIONS -------- 1. The left ventricular size is normal. 2. There is severe concentric left ventricular hypertrophy. 3. Overall left ventricular systolic function is normal with, an EF between 55 - 60 %. 4. The diastolic filling pattern is normal for the age of the patient 7.43 5. The mitral valve leaflets are mildly thickened. 6. There is trace mitral regurgitation. 7. Trace tricuspid regurgitation present. 8. There is no pericardial effusion. BRAND ATTENDANT: Zoey Hsu RDCS
[2021-05-13] MEDS ORDERED: ASPIRIN 325 MG TAB PO SCH (09:00)
[2021-05-13] MEDS: amLODIPine 10 MG TAB PO SCH (09:24)
[2021-05-13] MEDS: hydrALAZINE HCL 50 MG TAB PO SCH (09:25)
[2021-05-13] MEDS: hydroCHLOROthiazide 25 MG TAB PO SCH (09:25)
[2021-05-13] MEDS: cloNIDine HCL 0.2 MG TAB PO SCH (09:26)
[2021-05-13 09:37] VITALS: BP 134/89; PULSE 50
[2021-05-13 09:39] VITALS: RESP 16; TEMP 98.6
--- NOTE | 2021-05-13 13:45 | HP ---
HISTORY AND PHYSICAL CHIEF COMPLAINT: Nausea, vomiting, low back pain and hypertension. HISTORY OF PRESENT ILLNESS: This is another admission for this 41-year-old -[place] male who has chronic aortic vascular disease, for which he goes to the [facility]. He recently had another procedure on his aorta several weeks ago. He has been in the office since then and was doing fairly well. Apparently he developed a great deal of low back pain. He went to the emergency room. The etiology of his pain was not clear and his CT scan did not demonstrate anything further such as a leak, dissection, etc. He was admitted. REVIEW OF SYSTEMS: He has had no fever, chills, nausea, vomiting, chest pain, etc. Past medical history, family history, and personal and social histories are all otherwise unchanged or unremarkable from his previous admissions. Medications he has been on recently include ferrous sulfate, Vicodin, chlorthalidone, metoprolol, ibuprofen, amlodipine, Flexeril, vitamin D. He does continue to smoke and drinks alcohol occasionally. He is known to use illicit drugs, but it is unknown which and how often. PHYSICAL EXAMINATION: Blood pressure 124/64, pulse 56, respirations 17. He is afebrile. In general he appeared to be uncomfortable. Skin color is normal. Skin is warm and dry. Lymph nodes are not enlarged. Head, ears, eyes, nose, mouth and throat were normal. Neck veins were not distended. Thyroid is not enlarged. The chest is clear. Cardiac exam is normal and flanks are nontender. The abdomen is flat, soft, and he has some generalized mild tenderness throughout. There is no evident visceromegaly or masses. There is no rebound or referred tenderness and bowel sounds are heard. Extremities are normal. Neurologically he is intact. IMPRESSION: 1. Acute low back pain with nausea and vomiting. 2. Aortic vascular disease, status post recent procedure. PLAN: 1. Bedrest. 2. IV fluids. 3. Vascular surgery consult. 4. Antiemetics. MMODL / IJN: [id number] /
--- NOTE | 2021-05-13 15:24 | DS ---
DISCHARGE SUMMARY CHIEF COMPLAINT: Back pain and nausea and vomiting. HISTORY OF PRESENT ILLNESS AND PHYSICAL EXAMINATION: Details of this man's history and physical can be found in the initial workup. LABORATORY STUDIES: While he was in the hospital, he had laboratory studies, details of which can be found in the laboratory section of his chart. COURSE IN THE HOSPITAL: After admission, he was placed on bedrest, started on intravenous fluids and antiemetics and analgesics. He then signed himself out AGAINST MEDICAL ADVICE on the morning of the fourth. FINAL DIAGNOSES: 1. Back pain with intractable nausea and vomiting. 2. History of aortic vascular pathology. OPERATIONS: None. CONSULTATIONS: None. He was improved. MMODL / IJN: [id number] /
== END 2021-05-13 09:54 | disposition left against medical advice (07) | DRG 305 ==
LOC: EC 07:09 → 3SCARD 09:39
PROVIDERS: ADMIT Family Medicine; ATTEND Family Medicine
DX: I16.0 Hypertensive urgency (principal); J98.11 Atelectasis; I10 Essential (primary) hypertension; E83.42 Hypomagnesemia; Z20.822 Contact with and (suspected) exposure to COVID-19; M54.9 Dorsalgia, unspecified; R00.1 Bradycardia, unspecified; E87.6 Hypokalemia; F12.90 Cannabis use, unspecified, uncomplicated; F17.210 Nicotine dependence, cigarettes, uncomplicated; Z79.82 Long term (current) use of aspirin; Z79.899 Other long term (current) drug therapy; Z86.79 Personal history of other diseases of the circulatory system; Z91.012 Allergy to eggs; Z88.8 Allergy status to other drugs, medicaments and biological substances; Z91.048 Other nonmedicinal substance allergy status; Z87.19 Personal history of other diseases of the digestive system; R11.2 Nausea with vomiting, unspecified; Z88.5 Allergy status to narcotic agent
CPT/HCPCS: 36415; 71046; 80053; 80306; 83735; 84484; 85025; 85610; 85730; 87635; 93005; 93306; 96374; 96375; 96376; 99285

== ENCOUNTER 2021-05-15 23:32 | Emergency (ER) | payer OTHER ==
[2021-05-15 23:39] VITALS: TEMP 99
[2021-05-15] MEDS ORDERED: SODIUM CHLORIDE 0.9% 1,000 ML IV STA (23:47)
[2021-05-15] MEDS ORDERED: SODIUM CHLORIDE 0.9% 500 ML 500 ML IV STA (23:47)
[2021-05-15] MEDS ORDERED: ONDANSETRON 4 MG/2 ML VIAL IVP STA (23:48)
--- NOTE | 2021-05-16 00:06 | ED ---
Weakness HPI - General Chief complaint: Weakness Stated complaint: weakness, nausea Time Seen by Provider: 05/15/21 23:43 Source: patient, RN notes reviewed, old records reviewed Mode of arrival: wheelchair Limitations: no limitations - History of Present Illness Initial comments: This is a 41-year-old male to the emergency. Patient presents today for evaluation regards to not feeling well. Patient presents today for evaluation of active vomiting nausea vomiting and concern for elevated blood pressure. He has no chest pain other complaints. No recent fevers cough or congestion. Patient is vomiting so poor strain secondary to clinical condition MD Complaint: generalized weakness, lack of energy -: days(s) Location: generalized Severity: moderate Severity scale (1-10): 6 Quality: aching Consistency: constant Improves with: none Worsens with: none Context: recent illness, history of similar Associated Symptoms: loss of appetite, nausea/vomiting - Related Data Home Medications Medication Instructions Recorded Confirmed Acetaminophen Tab [Tylenol] 650 mg PO Q6H PRN 05/12/21 05/16/21 Ascorbic Acid [Vitamin C] 500 mg PO DAILY 05/12/21 05/16/21 Aspirin 325 mg PO DAILY 05/12/21 05/16/21 Cyclobenzaprine [Flexeril] 10 mg PO TID PRN 05/12/21 05/16/21 Ergocalciferol [Vitamin D2 (1250 1,250 mcg PO Q30D 05/12/21 05/16/21 Mcg = 95133 Iu)] Ferrous Sulfate [Feosol] 325 mg PO DAILY 05/12/21 05/16/21 HYDROcodone/APAP 7.5-325MG [[place] 1 tab PO TID PRN 05/12/21 05/16/21 7.5-325] Ibuprofen [Motrin] 800 mg PO QID PRN 05/12/21 05/16/21 Metoprolol Tartrate [Lopressor] 100 mg PO TID 05/12/21 05/16/21 Multivitamin with Iron 1 tab PO DAILY 05/12/21 05/16/21 [Multivitamins with Iron] amLODIPine [Norvasc] 10 mg PO DAILY 05/12/21 05/16/21 cloNIDine HCL [Catapres] 0.6 mg PO TID 05/12/21 05/16/21 hydrALAZINE HCL [Apresoline] 100 mg PO TID 05/12/21 05/16/21 hydroCHLOROthiazide [Hydrodiuril] 50 mg PO DAILY 05/12/21 05/16/21 oxyCODONE HCL [oxyCODONE HCL (IR)] 10 mg PO Q6H PRN 05/12/21 05/16/21 Previous Rx's Medication Instructions Recorded Ondansetron Odt [Zofran Odt] 4 mg PO Q8HR PRN #15 tab 05/16/21 Allergies Allergy/AdvReac Type Severity Reaction Status Date / Time JASMYN Inhibitors Allergy per Verified 05/16/21 12:33 paperwork from [facility] egg Allergy Rash/Hives Verified 05/16/21 12:33 wool Allergy Rash/Hives Verified 05/16/21 12:33 fentanyl AdvReac Unknown Verified 05/16/21 12:33 morphine AdvReac Unknown Verified 05/16/21 12:33 quetiapine [From Seroquel] AdvReac Hallucinati Verified 05/16/21 12:33 ons Review of Systems ROS Statement: Those systems with pertinent positive or pertinent negative responses have been documented in the HPI. ROS Other: All systems not noted in ROS Statement are negative. 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 O ther hx: Pt has recently been exposed to GI illnes in family, sleep disorder, R eye muscle problems/poor vision, History of Any Multi-Drug Resistant Organisms: None Reported Past Surgical History: Appendectomy Additional Past Surgical History / Comment(s): Lap appy with umbilical hernia repair, 01/23/21 aortic repair, 03/21/21 lower spinal repair, 03/25/21 open aortic repair then a leak with a radiologic procedure to correct, bronchoscopies x3 d/t fluid in lungs during aortic aneurysm. Past Anesthesia/Blood Transfusion Reactions: No Reported Reaction Past Psychological History: No Psychological Hx Reported Smoking Status: Current every day smoker - Past Family History Father Family Medical History: No Reported History, Hypertension Additional Family Medical History / Comment(s): Father long ago in an accident. Mother Family Medical History: Hypertension, Osteoarthritis (OA) Additional Family Medical History / Comment(s): Arrhythmia, lupus General Exam Limitations: no limitations General appearance: alert, in no apparent distress Head exam: Present: atraumatic, normocephalic, normal inspection Eye exam: Present: normal appearance, PERRL, EOMI. Absent: scleral icterus, conjunctival injection, periorbital swelling ENT exam: Present: normal exam, mucous membranes moist Neck exam: Present: normal inspection. Absent: tenderness, meningismus, lymphadenopathy Respiratory exam: Present: normal lung sounds bilaterally. Absent: respiratory distress, wheezes, rales, rhonchi, stridor Cardiovascular Exam: Present: regular rate, normal rhythm, normal heart sounds. Absent: systolic murmur, diastolic murmur, rubs, gallop, clicks GI/Abdominal exam: Present: soft, normal bowel sounds. Absent: distended, tenderness, guarding, rebound, rigid Extremities exam: Present: normal inspection, full ROM, normal capillary refill. Absent: tenderness, pedal edema, joint swelling, calf tenderness Back exam: Present: normal inspection Neurological exam: Present: alert, oriented X3, CN II-XII intact Psychiatric exam: Present: normal affect, normal mood Skin exam: Present: warm, dry, intact, normal color. Absent: rash Course Vital Signs 05/15/21 05/16/21 05/16/21 23:33 00:30 02:40 Temperature 99.0 F Pulse Rate 71 48 L 68 Respiratory 20 20 22 Rate Blood Pressure 174/78 148/82 168/85 O2 Sat by Pulse 100 97 95 Oximetry - Reevaluation(s) Reevaluation #1: Medical record is reviewed Patient symptoms are significantly improved here in the ER Patient informed results and questions answered EKG Findings - EKG Comments: EKG Findings:: EKG shows sinus bradycardia 48 SD 134 QRS 92 QTC 391 Medical Decision Making - Medical Decision Making 41 male to the emergency unsafe. Patient presents today for evaluation of weakness nausea vomiting abdominal pain. No significant findings and symptoms are improved. Patient can be discharged home - Lab Data Result diagrams: 05/16/21 00:30 05/16/21 00:30 Lab Results 05/16/21 05/16/21 05/16/21 Range/Units 00:30 00:30 00:30 WBC 9.2 (3.8-10.6) k/uL RBC 3.74 L (4.30-5.90) m/uL Hgb 10.9 L (13.0-17.5) gm/dL Hct 33.6 L (39.0-53.0) % MCV 89.9 (80.0-100.0) fL MCH 29.2 (25.0-35.0) pg MCHC 32.4 (31.0-37.0) g/dL RDW 16.5 H (11.5-15.5) % Plt Count 221 (150-450) k/uL MPV 8.7 Neutrophils % 83 % Lymphocytes % 9 % Monocytes % 6 % Eosinophils % 2 % Basophils % 0 % Neutrophils # 7.6 (1.3-7.7) k/uL Lymphocytes # 0.8 L (1.0-4.8) k/uL Monocytes # 0.5 (0-1.0) k/uL Eosinophils # 0.2 (0-0.7) k/uL Basophils # 0.0 (0-0.2) k/uL Anisocytosis Slight PT 11.1 (9.0-12.0) sec INR 1.0 (<1.2) APTT 26.7 (22.0-30.0) sec Sodium 140 (137-145) mmol/L Potassium 4.0 (3.5-5.1) mmol/L Chloride 104 (98-107) mmol/L Carbon Dioxide 24 (22-30) mmol/L Anion Gap 12 mmol/L BUN 22 H (9-20) mg/dL Creatinine 0.63 L (0.66-1.25) mg/dL Est GFR (CKD-EPI)AfAm >90 (>60 ml/min/1.73 sqM) Est GFR (CKD-EPI)NonAf >90 (>60 ml/min/1.73 sqM) Glucose 129 H (74-99) mg/dL Plasma Lactic Acid [place] (0.7-2.0) mmol/L Calcium 9.7 (8.4-10.2) mg/dL Phosphorus 3.4 (2.5-4.5) mg/dL Magnesium 1.7 (1.6-2.3) mg/dL Total Bilirubin 0.5 (0.2-1.3) mg/dL AST 29 (17-59) U/L ALT 13 (4-49) U/L Alkaline Phosphatase 66 (38-126) U/L Troponin I (0.000-0.034) ng/mL NT-Pro-B Natriuret Pep pg/mL Total Protein 9.0 H (6.3-8.2) g/dL Albumin 4.4 (3.5-5.0) g/dL TSH 0.280 L (0.465-4.680) mIU/L 05/16/21 05/16/21 05/16/21 Range/Units 00:30 00:30 00:30 WBC (3.8-10.6) k/uL RBC (4.30-5.90) m/uL Hgb (13.0-17.5) gm/dL Hct (39.0-53.0) % MCV (80.0-100.0) fL MCH (25.0-35.0) pg MCHC (31.0-37.0) g/dL RDW (11.5-15.5) % Plt Count (150-450) k/uL MPV Neutrophils % % Lymphocytes % % Monocytes % % Eosinophils % % Basophils % % Neutrophils # (1.3-7.7) k/uL Lymphocytes # (1.0-4.8) k/uL Monocytes # (0-1.0) k/uL Eosinophils # (0-0.7) k/uL Basophils # (0-0.2) k/uL Anisocytosis PT (9.0-12.0) sec INR (<1.2) APTT (22.0-30.0) sec Sodium (137-145) mmol/L Potassium (3.5-5.1) mmol/L Chloride (98-107) mmol/L Carbon Dioxide (22-30) mmol/L Anion Gap mmol/L BUN (9-20) mg/dL Creatinine (0.66-1.25) mg/dL Est GFR (CKD-EPI)AfAm (>60 ml/min/1.73 sqM) Est GFR (CKD-EPI)NonAf (>60 ml/min/1.73 sqM) Glucose (74-99) mg/dL Plasma Lactic Acid [place] 1.1 (0.7-2.0) mmol/L Calcium (8.4-10.2) mg/dL Phosphorus (2.5-4.5) mg/dL Magnesium (1.6-2.3) mg/dL Total Bilirubin (0.2-1.3) mg/dL AST (17-59) U/L ALT (4-49) U/L Alkaline Phosphatase (38-126) U/L Troponin I <0.012 (0.000-0.034) ng/mL NT-Pro-B Natriuret Pep 117 pg/mL Total Protein (6.3-8.2) g/dL Albumin (3.5-5.0) g/dL TSH (0.465-4.680) mIU/L Disposition Clinical Impression: Abdominal pain, Dehydration, Hypertensive urgency, Nausea & vomiting Disposition: HOME SELF-CARE Condition: Good Instructions (If sedation given, give patient instructions): Abdominal Pain (ED) Is patient prescribed a controlled substance at d/c from ED?: No Referrals: Tre Gould MD [Primary Care Provider] - 1-2 days
[2021-05-16] MEDS ORDERED: diphenhydrAMINE 50 MG/ML 1 ML VIAL IVP STA (00:46)
[2021-05-16] MEDS ORDERED: HYDROmorphone 1 MG/ML 1 ML SYRINGE IVP STA (00:46)
[2021-05-16] MEDS ORDERED: LORazepam 2 MG/ML INJ IV STA (00:47)
[2021-05-16 01:11] LABS: Anisocytosis Slight; Basophils % (A) 0 %; Eosinophils # (A) 0.2 k/uL (0-0.7); Eosinophils % (A) 2 %; HCT 33.6 % (39.0-53.0); HGB 10.9 gm/dL (13.0-17.5); Lymphocytes # (A) 0.8 k/uL (1.0-4.8); Lymphocytes % (A) 9 %; MCH 29.2 pg (25.0-35.0); MCHC 32.4 g/dL (31.0-37.0); MCV 89.9 fL (80.0-100.0); Mean Platelet Volume 8.7; Monocytes # (A) 0.5 k/uL (0-1.0); Monocytes % (A) 6 %; Neutrophils # (A) 7.6 k/uL (1.3-7.7); Neutrophils % (A) 83 %; Platelet Count 221 k/uL (150-450); RBC 3.74 m/uL (4.30-5.90); RDW 16.5 % (11.5-15.5); WBC 9.2 k/uL (3.8-10.6)
[2021-05-16 01:20] LABS: Partial Thromboplastin Time 26.7 sec (22.0-30.0); Prothrombin Time 11.1 sec (9.0-12.0)
[2021-05-16 01:21] LABS: ALT 13 U/L (4-49); AST 29 U/L (17-59); African American GFR (CKD) >90 (>60 ml/min/1.73 sqM); Albumin 4.4 g/dL (3.5-5.0); Alkaline Phosphatase 66 U/L (38-126); Anion Gap 12 mmol/L; Blood Urea Nitrogen 22 mg/dL (9-20); Calcium 9.7 mg/dL (8.4-10.2); Carbon Dioxide 24 mmol/L (22-30); Chloride 104 mmol/L (98-107); Glucose 129 mg/dL (74-99); Magnesium 1.7 mg/dL (1.6-2.3); Non-African American GFR(CKD) >90 (>60 ml/min/1.73 sqM); Phosphorus 3.4 mg/dL (2.5-4.5); Sodium 140 mmol/L (137-145); Total Bilirubin 0.5 mg/dL (0.2-1.3)
[2021-05-16 02:41] VITALS: BP 168/85; PULSE 68; RESP 22
[2021-05-16] MEDS ORDERED: traMADol 50 MG STARTER PACK 3 TAB BTL PO STA (02:54)
[2021-05-16] MEDS ORDERED: ONDANSETRON 4 MG ODT STARTER PACK 2 TAB BTL PO STA (02:54)
== END 2021-05-16 03:14 | disposition home or self-care (01) ==
LOC: EC 23:32
DX: R11.2 Nausea with vomiting, unspecified (principal); R10.9 Unspecified abdominal pain; I16.0 Hypertensive urgency; E86.0 Dehydration; I10 Essential (primary) hypertension; F17.200 Nicotine dependence, unspecified, uncomplicated; Z79.82 Long term (current) use of aspirin; Z88.5 Allergy status to narcotic agent; Z86.73 Personal history of transient ischemic attack (TIA), and cerebral infarction without residual deficits; Z86.718 Personal history of other venous thrombosis and embolism; Z90.49 Acquired absence of other specified parts of digestive tract
CPT/HCPCS: 99285; 96374; 96375 ×3; 96361 ×2; 36415; 93005; 83880; 80053; 83605; 83735; 84100; 84443; 84484; 85025; 85610; 85730; J2060; J1200; J2405; J1170; S0119

== ENCOUNTER 2021-05-16 11:23 | Emergency (ER) | payer OTHER ==
[2021-05-16 11:34] VITALS: RESP 18
[2021-05-16] MEDS ORDERED: SODIUM CHLORIDE 0.9% 500 ML 500 ML IV STA (11:59)
--- NOTE | 2021-05-16 12:46 | ED ---
General Adult HPI - General Chief complaint: Recheck/Abnormal Lab/Rx Stated complaint: Weakness Source: patient, EMS Mode of arrival: EMS - History of Present Illness Initial comments: 41-year-old male past medical history of aortic dissection presents emergency Department with nausea and vomiting. He comes in from Dr. Gould's office. The office reported that he was fatigued and acting confused therefore they transferred him to our facility. He was recently seen in our emergency department yesterday and admitted 4 days ago. Patient has also been seen at [facility]. Girlfriend at bedside reports that the patient has had nausea and vomiting during the past 2 weeks and during these episodes his blood pressure becomes extremely high. As he has a history of aortic dissection they were concerned about the high blood pressures. He does have an appointment tomorrow with a hypertension specialist out of [facility]. The patient presents today admitting that he had nausea this morning however it has improved at this time. He denies any abdominal pain. No chest pain or shortness of breath. No numbness, tingling or weakness in his extremities. He has never seen a GI doctor. No other alleviating, precipitating or modifying factors - Related Data Home Medications Medication Instructions Recorded Confirmed Acetaminophen Tab [Tylenol] 650 mg PO Q6H PRN 05/12/21 05/16/21 Ascorbic Acid [Vitamin C] 500 mg PO DAILY 05/12/21 05/16/21 Aspirin 325 mg PO DAILY 05/12/21 05/16/21 Cyclobenzaprine [Flexeril] 10 mg PO TID PRN 05/12/21 05/16/21 Ergocalciferol [Vitamin D2 (1250 1,250 mcg PO Q30D 05/12/21 05/16/21 Mcg = 57175 Iu)] Ferrous Sulfate [Feosol] 325 mg PO DAILY 05/12/21 05/16/21 HYDROcodone/APAP 7.5-325MG [[place] 1 tab PO TID PRN 05/12/21 05/16/21 7.5-325] Ibuprofen [Motrin] 800 mg PO QID PRN 05/12/21 05/16/21 Metoprolol Tartrate [Lopressor] 100 mg PO TID 05/12/21 05/16/21 Multivitamin with Iron 1 tab PO DAILY 05/12/21 05/16/21 [Multivitamins with Iron] amLODIPine [Norvasc] 10 mg PO DAILY 05/12/21 05/16/21 cloNIDine HCL [Catapres] 0.6 mg PO TID 05/12/21 05/16/21 hydrALAZINE HCL [Apresoline] 100 mg PO TID 05/12/21 05/16/21 hydroCHLOROthiazide [Hydrodiuril] 50 mg PO DAILY 05/12/21 05/16/21 oxyCODONE HCL [oxyCODONE HCL (IR)] 10 mg PO Q6H PRN 05/12/21 05/16/21 Previous Rx's Medication Instructions Recorded Ondansetron Odt [Zofran Odt] 4 mg PO Q8HR PRN #15 tab 05/16/21 Allergies Allergy/AdvReac Type Severity Reaction Status Date / Time JASMYN Inhibitors Allergy per Verified 05/16/21 12:33 paperwork from [facility] egg Allergy Rash/Hives Verified 05/16/21 12:33 wool Allergy Rash/Hives Verified 05/16/21 12:33 fentanyl AdvReac Unknown Verified 05/16/21 12:33 morphine AdvReac Unknown Verified 05/16/21 12:33 quetiapine [From Seroquel] AdvReac Hallucinati Verified 05/16/21 12:33 ons Review of Systems ROS Statement: Those systems with pertinent positive or pertinent negative responses have been documented in the HPI. ROS Other: All systems not noted in ROS Statement are negative. Past Medical History Past Medical History: Chest Pain / Angina, CVA/TIA, Deep Vein Thrombosis (DVT), Eye Disorder, Hypertension, Pneumonia, Vascular Disorder Additional Past Medical History / Comment(s): 01/24/20 chest pain with aortic dissection/flown to [facility] where he had aortic surgery (temporary), had CVA with L eye blindness/blood clot in his arm and pneumonia/vented during that stay, 03/21/21 low spinal repair then on 03/25/21 had open aortic repair/developed post op leak and had some type of radiological procedure/vented/pneuemonia. Other hx: Pt has recently been exposed to GI illnes in family, sleep disorder, R eye muscle problems/poor vision, History of Any Multi-Drug Resistant Organisms: None Reported Past Surgical History: Appendectomy Additional Past Surgical History / Comment(s): Lap appy with umbilical hernia repair, 01/23/21 aortic repair, 03/21/21 lower spinal repair, 03/25/21 open aortic repair then a leak with a radiologic procedure to correct, bronchoscopies x3 d/t fluid in lungs during aortic aneurysm. Past Anesthesia/Blood Transfusion Reactions: No Reported Reaction Past Psychological History: No Psychological Hx Reported Smoking Status: Current every day smoker Past Alcohol Use History: None Reported Past Drug Use History: Marijuana - Past Family History Father Family Medical History: No Reported History, Hypertension Additional Family Medical History / Comment(s): Father long ago in an accident. Mother Family Medical History: Hypertension, Osteoarthritis (OA) Additional Family Medical History / Comment(s): Arrhythmia, lupus Course Vital Signs 05/16/21 05/16/21 05/16/21 11:28 12:00 12:51 Temperature 99.1 F Pulse Rate 47 L 50 L 50 L Respiratory 18 18 18 Rate Blood Pressure 162/89 154/83 133/80 O2 Sat by Pulse 97 98 Oximetry 05/16/21 05/16/21 05/16/21 12:58 13:00 13:30 Temperature Pulse Rate 49 L 49 L Respiratory 18 18 18 Rate Blood Pressure 115/78 113/77 112/68 O2 Sat by Pulse Oximetry 05/16/21 05/16/21 14:00 14:50 Temperature Pulse Rate 46 L 46 L Respiratory 18 18 Rate Blood Pressure 113/70 O2 Sat by Pulse Oximetry EKG Findings - EKG Comments: EKG Findings:: EKG demonstrates sinus bradycardia with a ventricular rate of 46. Irritable 134. QRS 92. QTC of 439. There is inverted T waves in V1 and V2. Biphasic T waves V3 and V4. J-point elevation V5 and V6. Morphology appears similar to past EKG. Some ST depression 2, 3 and aVF. Repeat EKG demonstrates a sinus bradycardia with a ventricular rate of 53. DE interval of 130. QRS 94. QTC is 461. Continues to have inverted T waves with ST depression V2 through V4 Medical Decision Making - Medical Decision Making On arrival patient is placed into room 3. A thorough history and physical exam was performed. IV is established the patient is an 500 mL of normal saline. EKG is performed. Did speak with cardiology in regards to the abnormal EKG. Dr. Brody awake, spoke with Julita Coats who requests another EKG after CT. Laboratory studies are conducted and reviewed. No acute changes to the patient's laboratory studies from yesterday. Covid is not detected. I did CT the patient's abdomen and pelvis which demonstrates the thoracic aortic dissection which terminates at the level of the diaphragm. There is no positional aortic dissection which begins at the bifurcation and extends into the right common iliac artery. Aneurysmal dilation of the aorta. I did call and speak with Dr. Jacobo [facility] in regards to the patient's symptoms and imaging. Dr. Jacobo states that the patients imaging is stable and he has no concerns about his aorta. I did recommend admission however the patient refused. He is alert, oriented and capable of making his own decisions. Requesting to go home at this time. Discussed the risks of leaving which the patient understood. Request that he return for any new or worsening symptoms. I did fill a prescription for Zofran as the patient states that he is currently out of his current prescription. He needs to follow up with Dr. Gould. Did talk with Dr. Gould who will follow up with the patient in office. Patient discharged home with a guarded prognosis - Lab Data Result diagrams: 05/16/21 12:54 05/16/21 12:54 Lab Results 05/16/21 05/16/21 05/16/21 Range/Units 12:54 12:54 12:54 WBC 9.7 (3.8-10.6) k/uL RBC 3.83 L (4.30-5.90) m/uL Hgb 11.2 L (13.0-17.5) gm/dL Hct 36.2 L (39.0-53.0) % MCV 94.5 (80.0-100.0) fL MCH 29.2 (25.0-35.0) pg MCHC 30.9 L (31.0-37.0) g/dL RDW 16.0 H (11.5-15.5) % Plt Count 225 (150-450) k/uL MPV 8.7 Neutrophils % 77 % Lymphocytes % 12 % Monocytes % 7 % Eosinophils % 2 % Basophils % 0 % Neutrophils # 7.5 (1.3-7.7) k/uL Lymphocytes # 1.2 (1.0-4.8) k/uL Monocytes # 0.7 (0-1.0) k/uL Eosinophils # 0.2 (0-0.7) k/uL Basophils # 0.0 (0-0.2) k/uL Hypochromasia Moderate Anisocytosis Slight PT 11.4 (9.0-12.0) sec INR 1.1 (<1.2) APTT 26.7 (22.0-30.0) sec Sodium 137 (137-145) mmol/L Potassium 4.6 (3.5-5.1) mmol/L Chloride 102 (98-107) mmol/L Carbon Dioxide 25 (22-30) mmol/L Anion Gap 10 mmol/L BUN 16 (9-20) mg/dL Creatinine 0.56 L (0.66-1.25) mg/dL Est GFR (CKD-EPI)AfAm >90 (>60 ml/min/1.73 sqM) Est GFR (CKD-EPI)NonAf >90 (>60 ml/min/1.73 sqM) Glucose 126 H (74-99) mg/dL Plasma Lactic Acid [place] (0.7-2.0) mmol/L Calcium 9.4 (8.4-10.2) mg/dL Magnesium 1.7 (1.6-2.3) mg/dL Total Bilirubin 0.7 (0.2-1.3) mg/dL AST 42 (17-59) U/L ALT 13 (4-49) U/L Alkaline Phosphatase 54 (38-126) U/L Troponin I (0.000-0.034) ng/mL Total Protein 8.4 H (6.3-8.2) g/dL Albumin 3.9 (3.5-5.0) g/dL Lipase 47 (23-300) U/L Coronavirus (PCR) (Not Detectd) 05/16/21 05/16/21 05/16/21 Range/Units 12:54 12:54 12:54 WBC (3.8-10.6) k/uL RBC (4.30-5.90) m/uL Hgb (13.0-17.5) gm/dL Hct (39.0-53.0) % MCV (80.0-100.0) fL MCH (25.0-35.0) pg MCHC (31.0-37.0) g/dL RDW (11.5-15.5) % Plt Count (150-450) k/uL MPV Neutrophils % % Lymphocytes % % Monocytes % % Eosinophils % % Basophils % % Neutrophils # (1.3-7.7) k/uL Lymphocytes # (1.0-4.8) k/uL Monocytes # (0-1.0) k/uL Eosinophils # (0-0.7) k/uL Basophils # (0-0.2) k/uL Hypochromasia Anisocytosis PT (9.0-12.0) sec INR (<1.2) APTT (22.0-30.0) sec Sodium (137-145) mmol/L Potassium (3.5-5.1) mmol/L Chloride (98-107) mmol/L Carbon Dioxide (22-30) mmol/L Anion Gap mmol/L BUN (9-20) mg/dL Creatinine (0.66-1.25) mg/dL Est GFR (CKD-EPI)AfAm (>60 ml/min/1.73 sqM) Est GFR (CKD-EPI)NonAf (>60 ml/min/1.73 sqM) Glucose (74-99) mg/dL Plasma Lactic Acid Edgard 0.9 (0.7-2.0) mmol/L Calcium (8.4-10.2) mg/dL Magnesium (1.6-2.3) mg/dL Total Bilirubin (0.2-1.3) mg/dL AST (17-59) U/L ALT (4-49) U/L Alkaline Phosphatase (38-126) U/L Troponin I <0.012 (0.000-0.034) ng/mL Total Protein (6.3-8.2) g/dL Albumin (3.5-5.0) g/dL Lipase (23-300) U/L Coronavirus (PCR) Not Detected (Not Detectd) Disposition Clinical Impression: Nausea & vomiting Disposition: HOME SELF-CARE Condition: Stable Instructions (If sedation given, give patient instructions): Acute Nausea and Vomiting (ED) Additional Instructions: Dr. Gould will give you a call tomorrow. Please return to the emergency room for any new or worsening symptoms Prescriptions: Ondansetron Odt [Zofran Odt] 4 mg PO Q8HR PRN #15 tab PRN Reason: Nausea Is patient prescribed a controlled substance at d/c from ED?: No Referrals: Tre Gould MD [Primary Care Provider] - 1-2 days Time of Disposition: 15:25
[2021-05-16 13:07] LABS: Anisocytosis Slight; Basophils % (A) 0 %; Eosinophils # (A) 0.2 k/uL (0-0.7); Eosinophils % (A) 2 %; HCT 36.2 % (39.0-53.0); HGB 11.2 gm/dL (13.0-17.5); Hypochromasia Moderate; Lymphocytes # (A) 1.2 k/uL (1.0-4.8); Lymphocytes % (A) 12 %; MCH 29.2 pg (25.0-35.0); MCHC 30.9 g/dL (31.0-37.0); MCV 94.5 fL (80.0-100.0); Mean Platelet Volume 8.7; Monocytes # (A) 0.7 k/uL (0-1.0); Monocytes % (A) 7 %; Neutrophils # (A) 7.5 k/uL (1.3-7.7); Neutrophils % (A) 77 %; Platelet Count 225 k/uL (150-450); RBC 3.83 m/uL (4.30-5.90); WBC 9.7 k/uL (3.8-10.6)
[2021-05-16 13:19] LABS: INR 1.1 (<1.2); Partial Thromboplastin Time 26.7 sec (22.0-30.0); Prothrombin Time 11.4 sec (9.0-12.0)
[2021-05-16 13:27] LABS: ALT 13 U/L (4-49); AST 42 U/L (17-59); African American GFR (CKD) >90 (>60 ml/min/1.73 sqM); Albumin 3.9 g/dL (3.5-5.0); Alkaline Phosphatase 54 U/L (38-126); Anion Gap 10 mmol/L; Blood Urea Nitrogen 16 mg/dL (9-20); Calcium 9.4 mg/dL (8.4-10.2); Carbon Dioxide 25 mmol/L (22-30); Chloride 102 mmol/L (98-107); Glucose 126 mg/dL (74-99); Lipase 47 U/L (23-300); Magnesium 1.7 mg/dL (1.6-2.3); Non-African American GFR(CKD) >90 (>60 ml/min/1.73 sqM); Sodium 137 mmol/L (137-145); Total Bilirubin 0.7 mg/dL (0.2-1.3); Total Protein 8.4 g/dL (6.3-8.2)
[2021-05-16 13:31] LABS: Potassium 4.6 mmol/L (3.5-5.1)
--- NOTE | 2021-05-16 14:32 | CT ---
EXAMINATION TYPE: CT angio abdomen pelvis DATE OF EXAM: 05/16/2021 COMPARISON: 12/18/2019 INDICATION: Dissection DLP: 1006.6 mGycm, Automated exposure control for dose reduction was used. CONTRAST: 0 mL of Isovue 300. Study performed without Oral Contrast TECHNIQUE: Axial images were obtained from above the diaphragm to the pubic rami in the axial plane a t 5 mm thick sections. Reconstructed images are reviewed on the computer in the coronal plane. FINDINGS: Limited CT sections are obtained the lung bases. The lung bases are clear. CT ABDOMEN: Distal thoracic aortic dissection is evident. This extends to the diaphragm. There appears to be aortic aneurysm. The flow lumen remains smooth. Aneurysm 5.5 cm maybe present, ex ample image 501 image 60. This terminates above the bifurcation. Right Common iliac artery dissection is present extending towards the bifurcation. Internal and external iliac vessels are patent bilater ally. Left common iliac artery is tortuous and prominent. Internal and external iliac vessels are pat ent. Liver: Normal Spleen: Normal Pancreas: Normal Adrenal glands: The adrenal glands are normal. Gallbladder: Normal Kidneys: No masses are evident. No hydronephrosis is present. Tiny cortical renal cysts present on the left. Delayed images were obtained through the kidneys, which remain unremarkable. Aorta: Vascular calcification is within the aorta. Inferior vena cava: Normal. CT PELVIS: Loops of bowel within the abdomen and pelvis are normal. Study is performed without oral contrast in bowel evaluation. Appendix: Normal as visualized. Urinary bladder: Not identified. No dilated tubular structure inflammatory changes. Clinical manageme nt of any suspect appendicitis were acquired. Genitourinary structures: Prostate is unremarkable Osseous structures: There is lesion over the posterior right acetabulum IMPRESSIONS: 1. Aortic dissection of the distal thoracic aorta appears to terminate about the level of the diaphr agm. 2. Aortic dissection begins at the bifurcation and extends into the right common iliac artery. 3. Appears to be some aneurysmal dilatation of the aorta. The flow lumen is a more normal caliber. 4. Findings are a change from 12/18/2019.
[2021-05-16 15:55] VITALS: BP 114/96; PULSE 52; TEMP 98.9
== END 2021-05-16 16:00 | disposition home or self-care (01) ==
LOC: EC 11:23
DX: R11.2 Nausea with vomiting, unspecified (principal); Z20.822 Contact with and (suspected) exposure to COVID-19; I10 Essential (primary) hypertension; F17.200 Nicotine dependence, unspecified, uncomplicated; F12.90 Cannabis use, unspecified, uncomplicated; Z79.82 Long term (current) use of aspirin; Z79.1 Long term (current) use of non-steroidal anti-inflammatories (NSAID); Z79.899 Other long term (current) drug therapy
CPT/HCPCS: 36415; 93005; 80053; 83605; 83690; 83735; 84484; 85025; 85610; 85730; 87635; 74174; 99285; Q9967

== ENCOUNTER 2021-07-05 20:46 | Emergency (ER) | payer OTHER ==
[2021-07-05] MEDS ORDERED: NALOXONE 0.4 MG/ML 1 ML VIAL IVP STA (21:54)
--- NOTE | 2021-07-05 22:48 | XR ---
EXAMINATION TYPE: XR chest 1V portable DATE OF EXAM: 07/05/2021 COMPARISON: 05/12/2021 HISTORY: Chest pain TECHNIQUE: 2 views FINDINGS: Heart is normal. Lungs are clear of consolidation. There are some linear density left lower lobe. There is a stent at the aortic arch. There is no heart failure. There are chest leads. There i s some unusual linear density in the mediastinum on the left side not changed compared to old exam an d could be surgical changes. IMPRESSION: No heart failure. Mild subsegmental atelectasis left lung base is improved compared to la st exam.
--- NOTE | 2021-07-05 23:31 | CT ---
EXAMINATION TYPE: CT brain wo con DATE OF EXAM: 07/05/2021 COMPARISON: None HISTORY: AMS CT DLP: 1188.4 mGycm Automated exposure control for dose reduction was used. There is elongated 7 x 3 cm area of hypodensity right occipital lobe consistent with old infarct. The re is no mass effect or midline shift. There is no sign of intracranial hemorrhage. The calvarium is intact. Skull base is intact. Sella turcica appears normal. There is no evidence of orbital mass. 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 No acute intracranial abnormality.
[2021-07-06 00:01] LABS: Anisocytosis Slight; Basophils % (A) 0 %; Eosinophils % (A) 0 %; HCT 37.7 % (39.0-53.0); HGB 11.7 gm/dL (13.0-17.5); Hypochromasia Slight; Lymphocytes # (A) 0.5 k/uL (1.0-4.8); Lymphocytes % (A) 8 %; MCH 27.8 pg (25.0-35.0); MCV 89.9 fL (80.0-100.0); Mean Platelet Volume 7.7; Monocytes # (A) 0.3 k/uL (0-1.0); Monocytes % (A) 4 %; Neutrophils # (A) 5.6 k/uL (1.3-7.7); Neutrophils % (A) 87 %; Platelet Count 171 k/uL (150-450); RBC 4.19 m/uL (4.30-5.90); RDW 16.8 % (11.5-15.5); WBC 6.4 k/uL (3.8-10.6)
[2021-07-06 00:06] LABS: Partial Thromboplastin Time 27.3 sec (22.0-30.0); Prothrombin Time 11.1 sec (9.0-12.0)
[2021-07-06 00:43] LABS: ALT 11 U/L (4-49); AST 21 U/L (17-59); African American GFR (CKD) >90 (>60 ml/min/1.73 sqM); Albumin 4.1 g/dL (3.5-5.0); Alkaline Phosphatase 69 U/L (38-126); Anion Gap 10 mmol/L; Blood Urea Nitrogen 15 mg/dL (9-20); Calcium 9.7 mg/dL (8.4-10.2); Carbon Dioxide 24 mmol/L (22-30); Chloride 102 mmol/L (98-107); Glucose 146 mg/dL (74-99); Magnesium 1.7 mg/dL (1.6-2.3); Non-African American GFR(CKD) >90 (>60 ml/min/1.73 sqM); Potassium 3.9 mmol/L (3.5-5.1); Sodium 136 mmol/L (137-145); Total Bilirubin 0.8 mg/dL (0.2-1.3); Total Protein 8.1 g/dL (6.3-8.2)
--- NOTE | 2021-07-06 00:57 | ED ---
Chest Pain HPI - General Chief Complaint: Chest Pain Stated Complaint: Chest pain,Lower back pain Time Seen by Provider: 07/05/21 21:29 Source: patient Mode of arrival: EMS Limitations: physical limitation (The patient is noncooperative during history and physical, displaying no interest in the interaction) - History of Present Illness MD Complaint: chest pain -: minutes(s) Onset: other (Reportedly came on while being arrested) Pain Location: substernal Pain Radiation: none Severity: moderate Quality: tightness Improves With: nothing Worsens With: nothing Treatments Prior to Arrival: none - Related Data Home Medications Medication Instructions Recorded Confirmed Acetaminophen Tab [Tylenol] 650 mg PO Q6H PRN 05/12/21 05/16/21 Ascorbic Acid [Vitamin C] 500 mg PO DAILY 05/12/21 05/16/21 Aspirin 325 mg PO DAILY 05/12/21 05/16/21 Cyclobenzaprine [Flexeril] 10 mg PO TID PRN 05/12/21 05/16/21 Ergocalciferol [Vitamin D2 (1250 1,250 mcg PO Q30D 05/12/21 05/16/21 Mcg = 13873 Iu)] Ferrous Sulfate [Feosol] 325 mg PO DAILY 05/12/21 05/16/21 HYDROcodone/APAP 7.5-325MG [[place] 1 tab PO TID PRN 05/12/21 05/16/21 7.5-325] Ibuprofen [Motrin] 800 mg PO QID PRN 05/12/21 05/16/21 Metoprolol Tartrate [Lopressor] 100 mg PO TID 05/12/21 05/16/21 Multivitamin with Iron 1 tab PO DAILY 05/12/21 05/16/21 [Multivitamins with Iron] amLODIPine [Norvasc] 10 mg PO DAILY 05/12/21 05/16/21 cloNIDine HCL [Catapres] 0.6 mg PO TID 05/12/21 05/16/21 hydrALAZINE HCL [Apresoline] 100 mg PO TID 05/12/21 05/16/21 hydroCHLOROthiazide [Hydrodiuril] 50 mg PO DAILY 05/12/21 05/16/21 oxyCODONE HCL [oxyCODONE HCL (IR)] 10 mg PO Q6H PRN 05/12/21 05/16/21 Previous Rx's Medication Instructions Recorded Ondansetron Odt [Zofran Odt] 4 mg PO Q8HR PRN #15 tab 05/16/21 Allergies Allergy/AdvReac Type Severity Reaction Status Date / Time JASMYN Inhibitors Allergy per Verified 07/05/21 21:[address] [facility] egg Allergy Rash/Hives Verified 07/05/21 21:12 wool Allergy Rash/Hives Verified 07/05/21 21:12 fentanyl AdvReac Unknown Verified 07/05/21 21:12 morphine AdvReac Unknown Verified 07/05/21 21:12 quetiapine [From Seroquel] AdvReac Hallucinati Verified 07/05/21 21:12 ons Review of Systems ROS Statement: Those systems with pertinent positive or pertinent negative responses have been documented in the HPI. ROS Other: All systems not noted in ROS Statement are negative. Constitutional: Denies: fever, chills Respiratory: Denies: cough, dyspnea Cardiovascular: Reports: as per HPI, chest pain. Denies: palpitations, edema, syncope Gastrointestinal: Denies: abdominal pain, nausea, vomiting Musculoskeletal: Denies: back pain Skin: Denies: rash Neurological: Denies: headache, weakness, numbness Past Medical History Past Medical History: Chest Pain / Angina, CVA/TIA, Deep Vein Thrombosis (DVT), Eye Disorder, Hypertension, Pneumonia, Vascular Disorder Additional Past Medical History / Comment(s): 01/24/20 chest pain with aortic dissection/flown to [facility] where he had aortic surgery (temporary), had CVA with L eye blindness/blood clot in his arm and pneumonia/vented during that stay, 03/21/21 low spinal repair then on 03/25/21 had open aortic repair/developed post op leak and had some type of radiological procedure/vented/pneuemonia. Other hx: Pt has recently been exposed to GI illnes in family, sleep disorder, R eye muscle problems/poor vision, History of Any Multi-Drug Resistant Organisms: None Reported Past Surgical History: Appendectomy Additional Past Surgical History / Comment(s): Lap appy with umbilical hernia repair, 01/23/21 aortic repair, 03/21/21 lower spinal repair, 03/25/21 open aortic repair then a leak with a radiologic procedure to correct, bronchoscopies x3 d/t fluid in lungs during aortic aneurysm. Past Anesthesia/Blood Transfusion Reactions: No Reported Reaction Past Psychological History: No Psychological Hx Reported Smoking Status: Current every day smoker Past Alcohol Use History: Rare Past Drug Use History: Marijuana - Past Family History Father Family Medical History: No Reported History, Hypertension Additional Family Medical History / Comment(s): Father long ago in an accident. Mother Family Medical History: Hypertension, Osteoarthritis (OA) Additional Family Medical History / Comment(s): Arrhythmia, lupus General Exam Limitations: no limitations General appearance: alert, in no apparent distress Head exam: Present: atraumatic, normocephalic Eye exam: Present: normal appearance. Absent: scleral icterus, conjunctival injection Neck exam: Present: normal inspection, full ROM. Absent: tenderness, meningismus Respiratory exam: Present: normal lung sounds bilaterally. Absent: respiratory distress, wheezes, rales, rhonchi, stridor Cardiovascular Exam: Present: regular rate, normal rhythm, normal heart sounds. Absent: systolic murmur, diastolic murmur, rubs, gallop GI/Abdominal exam: Present: soft. Absent: distended, tenderness, guarding, rebound, rigid, mass Extremities exam: Present: normal inspection, normal capillary refill. Absent: pedal edema, calf tenderness Back exam: Present: normal inspection. Absent: CVA tenderness (R), CVA tenderness (L) Neurological exam: Present: alert Skin exam: Present: warm, dry, intact, normal color. Absent: rash Course Vital Signs 07/05/21 07/05/21 07/06/21 21:12 21:25 00:17 Temperature 98.1 F Pulse Rate 50 L 60 Pulse Rate [ 70 [employer] ] Respiratory 20 15 Rate Blood Pressure 175/78 93/54 O2 Sat by Pulse 99 98 Oximetry 07/06/21 01:48 Temperature 98.4 F Pulse Rate 97 Pulse Rate [ [employer] ] Respiratory 17 Rate Blood Pressure 112/60 O2 Sat by Pulse 98 Oximetry Disposition Clinical Impression: Chest pain Disposition: HOME SELF-CARE Condition: Good Instructions (If sedation given, give patient instructions): Chest Pain (ED) Is patient prescribed a controlled substance at d/c from ED?: No Referrals: Tre Gould MD [Primary Care Provider] - 1-2 days
[2021-07-06 01:58] VITALS: BP 112/60; PULSE 97; RESP 17; TEMP 98.4
== END 2021-07-06 01:48 | disposition home or self-care (01) ==
LOC: EC 20:46
DX: R07.89 Other chest pain (principal); I10 Essential (primary) hypertension; F17.200 Nicotine dependence, unspecified, uncomplicated; F12.90 Cannabis use, unspecified, uncomplicated; Z79.82 Long term (current) use of aspirin; Z79.899 Other long term (current) drug therapy
CPT/HCPCS: 36415; 70450; 71045; 80053; 83735; 84484; 85025; 85610; 85730; 93005; 99285

== ENCOUNTER 2022-05-23 08:36 | Observation (INO) | payer OTHER ==
[2022-05-23] MEDS: NITROGLYCERIN SL TABS 0.4 MG TAB SUBLINGUAL PRN ×2 (08:52→09:22)
--- NOTE | 2022-05-23 08:56 | ED ---
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 States began this morning. Describes it as left- sided. Has been present for approximately one hour, and rates it as an 8 out of 10. EMS arrived, and provide the patient with a dose nitroglycerin tablet as well as an aspirin 324 mg. States the nitroglycerin tablet did improve his pain. Does have chronic back pain which is now experiencing to as he did not take his morning [place] does. Denies any abdominal pain, nausea, vomiting. Denies any weakness or numbness in the extremities or head. States he did take his antihypertensive medications. Denies any fevers, chills, cough, shortness of breath. Denies any lower extremity swelling. No other acute complaints at this time. Presents for further evaluation for his chest pain. - Related Data Home Medications Medication Instructions Recorded Confirmed Aspirin 325 mg PO DAILY 05/12/21 05/23/22 Ergocalciferol [Vitamin D2 (1250 1,250 mcg PO Q30D 05/12/21 05/23/22 Mcg = 16507 Iu)] HYDROcodone/APAP 7.5-325MG [[place] 1 tab PO DIRECTED PRN 05/12/21 05/23/22 7.5-325] Ibuprofen [Motrin] 800 mg PO QID PRN 05/12/21 05/23/22 amLODIPine [Norvasc] 10 mg PO DAILY 05/12/21 05/23/22 hydrALAZINE HCL [Apresoline] 100 mg PO TID 05/12/21 05/23/22 Metoprolol Succinate (ER) [Toprol 50 mg PO BID 05/23/22 05/23/22 Xl] Sertraline [Zoloft] 25 mg PO DAILY 05/23/22 05/23/22 Spironolactone-Hctz 25-25Mg 1 tab PO DAILY 05/23/22 05/23/22 [Aldactazide 25-25Mg] Allergies Allergy/AdvReac Type Severity Reaction Status Date / Time JASMYN Inhibitors Allergy per Verified 05/23/22 12:49 paperwork from [facility] egg Allergy Rash/Hives Verified 05/23/22 12:49 wool Allergy Rash/Hives Verified 05/23/22 12:49 fentanyl AdvReac Unknown Verified 05/23/22 12:49 quetiapine [From Seroquel] AdvReac Hallucinati Verified 05/23/22 12:49 ons Review of Systems ROS Statement: Those systems with pertinent positive or pertinent negative responses have been documented in the HPI. Review of Systems: CONST: Denies fever EYES: Denies blurry vision ENT: Denies nasal congestion C/V: Endorses Chest pain RESP: Denies shortness of breath GI: Denies abdominal pain : Denies dysuria SKIN: Denies rash. MSK: Endorses chronic back pain. NEURO: Denies headache ROS Other: All systems not noted in ROS Statement are negative. Past Medical History Past Medical History: Chest Pain / Angina, CVA/TIA, Deep Vein Thrombosis (DVT), Eye Disorder, Hypertension, Pneumonia, Vascular Disorder Additional Past Medical History / Comment(s): 01/24/20 chest pain with aortic dissection/flown to [facility] where he had aortic surgery (temporary), had CVA with L eye blindness/blood clot in his arm and pneumonia/vented during that stay, 03/21/21 low spinal repair then on 03/25/21 had open aortic repair/developed post op leak and had some type of radiological procedure/vented/pneuemonia. Other hx: Pt has recently been exposed to GI illnes in family, sleep disorder, R eye muscle problems/poor vision, History of Any Multi-Drug Resistant Organisms: None Reported Past Surgical History: Appendectomy Additional Past Surgical History / Comment(s): Lap appy with umbilical hernia repair, 01/23/21 aortic repair, 03/21/21 lower spinal repair, 03/25/21 open aortic repair then a leak with a radiologic procedure to correct, bronchoscopies x3 d/t fluid in lungs during aortic aneurysm. Past Anesthesia/Blood Transfusion Reactions: No Reported Reaction Past Psychological History: No Psychological Hx Reported Smoking Status: Current every day smoker Past Alcohol Use History: Rare Past Drug Use History: Marijuana - Past Family History Father Family Medical History: No Reported History, Hypertension Additional Family Medical History / Comment(s): Father long ago in an accident. Mother Family Medical History: Hypertension, Osteoarthritis (OA) Additional Family Medical History / Comment(s): Arrhythmia, lupus General Exam - General Exam Comments Initial Comments: General: Appears in no acute distress. HEAD: Normal with no signs of head trauma. EYES: PERRLA, EOMI, conjunctiva normal, no discharge. ENT: Hearing grossly intact, normal oropharynx. RESPIRATORY: Clear breath sounds bilaterally. No wheezes, rales, or rhonchi. C/V: Regular rate and rhythm. S1 and S2 auscultated, no edema, peripheral pulses 2+ symmetric and intact throughout ABD: Abd is soft, nontender, nondistended EXT: Normal range of motion, no obvious deformity SKIN: No rashes or lesions observed on exposed skin. NEURO: Alert and oriented 4. No focal deficits. Limitations: no limitations Course Vital Signs 05/23/22 05/23/22 08:39 15:11 Temperature 98.4 F Pulse Rate 73 70 Respiratory 18 15 Rate Blood Pressure 130/93 166/93 O2 Sat by Pulse 97 97 Oximetry Medical Decision Making - Medical Decision Making Based on the patient's presentation and physical exam, I'm concerned for acute cardiac etiology for his current symptoms and possible ACS. He is also having chronic back pain. Patient was hypertensive when EMS arrived however he is no longer hypertensive upon arrival. Chest pain is resolving following nitroglycerin tablet. We will obtain cardiac workup including EKG, chest x-ray, cardiac labs. He was in agreement this plan. No concern for AAA injury at this time is he has no abdominal complaints. Vital signs within normal limits. He already received 324 mg of aspirin from EMS. EKG shows old morphology and no acute ischemia.Chest x-ray as interpreted by myself reveals no evidence of acute cardio pulmonary process, infiltrate. Patient's laboratory studies are remarkable for an acute hypokalemia 2.8. Troponin is indeterminate. Remainder of labs are unremarkable. On reevaluation, patient is feeling improved in terms of his chest pain. States the nitroglycerin tablets did not make any change, but he is doing with his chronic neck pain that he has on a daily basis and is requesting [place]. I will provide him with morphine at this time which he accepted. He has no other acute complaints at this time. Patient's heart score is moderate. I did recommend that we admit him to the hospital for troponin trending. He was in agreement this plan. I spoke with the admitting physician, Dr. Virk was in agreement with the admission. He was administered in stable condition. - Lab Data Result diagrams: 05/23/22 08:42 05/23/22 08:42 Lab Results 05/23/22 05/23/22 05/23/22 Range/Units 08:42 08:42 08:42 WBC 4.5 (3.8-10.6) k/uL RBC 4.20 L (4.30-5.90) m/uL Hgb 13.1 (13.0-17.5) gm/dL Hct 37.4 L (39.0-53.0) % MCV 89.1 (80.0-100.0) fL MCH 31.2 (25.0-35.0) pg MCHC 35.0 (31.0-37.0) g/dL RDW 14.1 (11.5-15.5) % Plt Count 190 (150-450) k/uL MPV 8.8 Neutrophils % (Manual) 62 % Lymphocytes % (Manual) 22 % Monocytes % (Manual) 14 % Eosinophils % (Manual) 2 % Neutrophils # (Manual) 2.79 (1.3-7.7) k/uL Lymphocytes # (Manual) 0.99 L (1.0-4.8) k/uL Monocytes # (Manual) 0.63 (0-1.0) k/uL Eosinophils # (Manual) 0.09 (0-0.7) k/uL Nucleated RBCs 0 (0-0) /100 WBC Manual Slide Review Performed RBC Morphology Normal PT 10.1 (9.0-12.0) sec INR 0.9 (<1.2) APTT 25.9 (22.0-30.0) sec Sodium 134 L (137-145) mmol/L Potassium 2.8 L (3.5-5.1) mmol/L Chloride 97 L (98-107) mmol/L Carbon Dioxide 29 (22-30) mmol/L Anion Gap 8 mmol/L BUN 18 (9-20) mg/dL Creatinine 1.07 (0.66-1.25) mg/dL Est GFR (CKD-EPI)AfAm >90 (>60 ml/min/1.73 sqM) Est GFR (CKD-EPI)NonAf 87 (>60 ml/min/1.73 sqM) Glucose 106 H (74-99) mg/dL Calcium 9.2 (8.4-10.2) mg/dL Magnesium 1.9 (1.6-2.3) mg/dL Total Bilirubin 0.3 (0.2-1.3) mg/dL AST 26 (17-59) U/L ALT 19 (4-49) U/L Alkaline Phosphatase 67 (38-126) U/L Troponin I (0.000-0.034) ng/mL Total Protein 7.3 (6.3-8.2) g/dL Albumin 4.1 (3.5-5.0) g/dL 05/23/22 Range/Units 08:42 WBC (3.8-10.6) k/uL RBC (4.30-5.90) m/uL Hgb (13.0-17.5) gm/dL Hct (39.0-53.0) % MCV (80.0-100.0) fL MCH (25.0-35.0) pg MCHC (31.0-37.0) g/dL RDW (11.5-15.5) % Plt Count (150-450) k/uL MPV Neutrophils % (Manual) % Lymphocytes % (Manual) % Monocytes % (Manual) % Eosinophils % (Manual) % Neutrophils # (Manual) (1.3-7.7) k/uL Lymphocytes # (Manual) (1.0-4.8) k/uL Monocytes # (Manual) (0-1.0) k/uL Eosinophils # (Manual) (0-0.7) k/uL Nucleated RBCs (0-0) /100 WBC Manual Slide Review RBC Morphology PT (9.0-12.0) sec INR (<1.2) APTT (22.0-30.0) sec Sodium (137-145) mmol/L Potassium (3.5-5.1) mmol/L Chloride (98-107) mmol/L Carbon Dioxide (22-30) mmol/L Anion Gap mmol/L BUN (9-20) mg/dL Creatinine (0.66-1.25) mg/dL Est GFR (CKD-EPI)AfAm (>60 ml/min/1.73 sqM) Est GFR (CKD-EPI)NonAf (>60 ml/min/1.73 sqM) Glucose (74-99) mg/dL Calcium (8.4-10.2) mg/dL Magnesium (1.6-2.3) mg/dL Total Bilirubin (0.2-1.3) mg/dL AST (17-59) U/L ALT (4-49) U/L Alkaline Phosphatase (38-126) U/L Troponin I 0.014 (0.000-0.034) ng/mL Total Protein (6.3-8.2) g/dL Albumin (3.5-5.0) g/dL - EKG Data -: EKG Interpreted by Me EKG Comments: 12-lead Electrocardiogram Interpretation Note EKG was reviewed and interpreted by myself. 12-lead ECG performed at 0842 is in terpreted by me as revealing normal sinus rhythm at a rate of 67 beats per minute. [place] is normal. NE interval is 132 ms, QRS duration is 85 ms, QTc is 430 ms. There are chronic ST segment abnormalities seen in leads V3 and V4 which are seen on prior EKGs from May 2021 and earlier. Morphology appears similar. There were no acute ST or T wave abnormalities to suggest myocardial ischemia or injury. R wave progression across the precordium was satisfactory. By my interpretation this EKG is non-diagnostic for acute ischemia. EKG appears similar to EKG from May 2021. Disposition Clinical Impression: Hypokalemia, Chest pain Disposition: ADMITTED IP TO THIS HOSP Condition: Stable Time of Disposition: 10:10
--- NOTE | 2022-05-23 09:10 | XR ---
EXAMINATION TYPE: XR chest 2V DATE OF EXAM: 05/23/2022 COMPARISON: Chest x-ray July 05, 2021 HISTORY: Chest pain. TECHNIQUE: Frontal and lateral views of the chest are obtained. FINDINGS: Stable small left pleural effusion. Right lung is clear. The cardiac silhouette size is st able and within normal limits. Stent graft in the aortic arch extending into descending aorta is rede monstrated. Embolization coils posterior superior to this redemonstrated. Surgical clips in the left upper quadrant again seen. The osseous structures are intact. IMPRESSION: Stable small left pleural effusion and chronic changes. No new acute infiltrate.
[2022-05-23 09:17] LABS: HCT 37.4 % (39.0-53.0); HGB 13.1 gm/dL (13.0-17.5); MCH 31.2 pg (25.0-35.0); MCV 89.1 fL (80.0-100.0); Mean Platelet Volume 8.8; Platelet Count 190 k/uL (150-450); RDW 14.1 % (11.5-15.5); WBC 4.5 k/uL (3.8-10.6)
[2022-05-23] MEDS ORDERED: HYDROcodone/APAP 7.5-325MG 1 EACH TAB PO ONE (09:29)
[2022-05-23 09:41] LABS: ALT 19 U/L (4-49); AST 26 U/L (17-59); African American GFR (CKD) >90 (>60 ml/min/1.73 sqM); Albumin 4.1 g/dL (3.5-5.0); Alkaline Phosphatase 67 U/L (38-126); Anion Gap 8 mmol/L; Blood Urea Nitrogen 18 mg/dL (9-20); Calcium 9.2 mg/dL (8.4-10.2); Carbon Dioxide 29 mmol/L (22-30); Chloride 97 mmol/L (98-107); Glucose 106 mg/dL (74-99); Magnesium 1.9 mg/dL (1.6-2.3); Non-African American GFR(CKD) 87 (>60 ml/min/1.73 sqM); Potassium 2.8 mmol/L (3.5-5.1); Sodium 134 mmol/L (137-145); Total Bilirubin 0.3 mg/dL (0.2-1.3); Total Protein 7.3 g/dL (6.3-8.2)
[2022-05-23 09:43] LABS: INR 0.9 (<1.2); Partial Thromboplastin Time 25.9 sec (22.0-30.0); Prothrombin Time 10.1 sec (9.0-12.0)
[2022-05-23] MEDS ORDERED: MORPHINE SULFATE 4 MG/ML SYRINGE IVP STA (09:57)
[2022-05-23] MEDS ORDERED: MORPHINE SULFATE 4 MG/ML SYRINGE IVP PRN (09:57)
[2022-05-23] MEDS ORDERED: SODIUM CHLORIDE 0.9% 1,000 ML IV STA (09:58)
[2022-05-23] MEDS ORDERED: NALOXONE 0.4 MG/ML 1 ML VIAL IV PRN (10:19)
[2022-05-23 10:23] LABS: Eosinophils # (M) 0.09 k/uL (0-0.7); Lymphocytes # (M) 0.99 k/uL (1.0-4.8); Monocytes # (M) 0.63 k/uL (0-1.0); Neutrophils # (M) 2.79 k/uL (1.3-7.7); Neutrophils % (M) 62 %; Nucleated Red Blood Cells 0 /100 WBC (0-0); Total Cells Counted 100
[2022-05-23 10:26] LABS: RBC Morphology Normal
[2022-05-23] MEDS: POTASSIUM CHLORIDE 10 MEQ in WATER FOR INJECTION 1 100ML.BAG IVPB SCH ×4 (10:37→17:10)
[2022-05-23] MEDS ORDERED: POTASSIUM CHLORIDE ER 20 MEQ TAB.ER PO SCH (13:00)
--- NOTE | 2022-05-23 13:02 | CT ---
EXAMINATION TYPE: CT angio thor/abd pel aorta DATE OF EXAM: 05/23/2022 COMPARISON: 05/16/2021 HISTORY: Chest pain. Hx of aortic stent. CT DLP: 1368.3 mGycm Automated exposure control for dose reduction was used. Contrast: None Technique: Axial images 5 mm thick sections. Reconstructed images in coronal and sagittal plane. Thre e-D reconstructed images are reviewed on computer. FINDINGS: Aortic stent is present at the level of the aortic arch. There is an aortic dissection extending from the mid aortic arch posteriorly to level of the diaphragm. This was present previously and appears s table in size and appearance within the field of view. Abdominal aorta is patent throughout its visualized course without dissection. There is fusiform prom inence. Findings appear stable from the comparison 05/16/2021. Previous right common iliac dissection not identified on the current study. The iliac vessels patent to the femoral arteries. IMPRESSION: 1. STABLE AORTIC DISSECTION FROM THE AORTIC ARCH TO THE DIAPHRAGM. 2. STABLE FUSIFORM PROMINENCE THROUGH THE ABDOMINAL AORTA.
--- NOTE | 2022-05-23 14:29 | P.CRDCN ---
History of Present Illness Consult date: 05/23/22 Consult reason: chest pain History of present illness: HISTORY OF PRESENT ILLNESS: This is a 42-year-old male with a past medical history significant for hypertension and aortic aneurysm with surgical repair 2 last in March,. Patient follows with a Dr. Hopper at the [facility]. We have been asked to see the patient in consultation for chest pain. Patient examined at the bedside in the emergency center. Patient states he presented to the hospital this morning due to left-sided chest pain that started 1 hour before arrival, rated as 8/10. He was provided nitroglycerin sublingually by EMS and aspirin. Nitroglycerin apparently improved his chest pain. Initial blood pressure 130/93. EKG is a sinus rhythm with no acute ST changes. Chest x-ray reveals stable small left pleural effusion and chronic changes. No new acute infiltrate. WBC 4.5, hemoglobin 13.1, platelet count 190. Sodium 134, potassium 2.8, chloride 97, CO2 29, BUN 18, creatinine 1.07. Magnesium 1.9. Troponin 0.014. Echocardiogram 05/12 revealed EF of 55-60% with severe concentric left ventricular hypertrophy, trace mitral regurgitation, trace tricuspid regurgitation Home cardiac medications: Amlodipine 10 mg daily, aspirin 325 mg daily, clonidine 0.6 mg 3 times daily, hydralazine 100 mg 3 times daily, hydrochlorothi azide 50 mg daily, Lopressor 100 mg 3 times daily REVIEW OF SYSTEMS: At the time of my exam: CONSTITUTIONAL: Denies fever or chills. HEENT: Denies blurred vision, vision changes, or eye pain. Denies hemoptysis CARDIOVASCULAR: Reports chest pain. Denies orthopnea. Denies PND. Denies palpitations RESPIRATORY: Denies shortness of breath. GASTROINTESTINAL: Denies abdominal pain. Denies nausea or vomiting. HEMATOLOGIC: Denies bleeding disorders. GENITOURINARY: Denies any blood in urine. SKIN: Denies pruitis. Denies rash. PHYSICAL EXAM: VITAL SIGNS: Reviewed. GENERAL: Well-developed in no acute distress. HEENT: Head is normocephalic. Pupils are equal, round. Sclerae anicteric. Mucous membranes of the mouth are moist. Neck supple. No JVD or thyromegaly LUNGS: Respirations even and unlabored. Lungs essentially clear to auscultation bilaterally. HEART: Regular rate and rhythm. S1 and S2 heard. No murmur. ABDOMEN: Soft. Nondistended. Nontender. EXTREMITIES: Normal range of motion. No clubbing or cyanosis. Peripheral pulses intact. No lower extremity edema NEUROLOGIC: Awake and alert. Oriented x 3. ASSESSMENT: Left-sided chest pain, acute coronary syndrome ruled out History of hypertension History of aortic aneurysm with surgical repair 2 Hypokalemia Nicotine dependence Marijuana use PLAN: Obtain 2D echo to assess cardiac structure and function Obtain CT angiogram of the aorta Obtain serial troponins and repeat BMP in the morning Resume home cardiac medications potassium replacement has been ordered by the ER Smoking cessation recommended Recommend abstinence from marijuana use Further recommendations pending patient course Nurse practitioner note has been reviewed by physician. Signing provider agrees with the documented findings, assessment, and plan of care. Past Medical History Past Medical History: Chest Pain / Angina, CVA/TIA, Deep Vein Thrombosis (DVT), Eye Disorder, Hypertension, Pneumonia, Vascular Disorder Additional Past Medical History / Comment(s): 01/24/20 chest pain with aortic dissection/[facility]), had CVA with L eye blindness/blood clot in his arm and pneumonia/vented during that stay, 03/21/21 low spinal repair then on 03/25/21 had open aortic repair/developed post op leak and had some type of radiological procedure/vented/pneuemonia. Other hx: Pt has recently been exposed to GI illnes in family, sleep disorder, R eye muscle problems/poor vision, History of Any Multi-Drug Resistant Organisms: None Reported Past Surgical History: Appendectomy Additional Past Surgical History / Comment(s): Lap appy with umbilical hernia repair, 01/23/21 aortic repair, 03/21/21 lower spinal repair, 03/25/21 open aortic repair then a leak with a radiologic procedure to correct, bronchoscopies x3 d/t fluid in lungs during aortic aneurysm. Past Anesthesia/Blood Transfusion Reactions: No Reported Reaction Past Psychological History: No Psychological Hx Reported Smoking Status: Current every day smoker Past Alcohol Use History: Rare Past Drug Use History: Marijuana - Past Family History Father Family Medical History: No Reported History, Hypertension Additional Family Medical History / Comment(s): Father long ago in an accident. Mother Family Medical History: Hypertension, Osteoarthritis (OA) Additional Family Medical History / Comment(s): Arrhythmia, lupus Medications and Allergies Home Medications Medication Instructions Recorded Confirmed Type Aspirin 325 mg PO DAILY 05/12/21 05/23/22 History Ergocalciferol [Vitamin D2 (1250 1,250 mcg PO Q30D 05/12/21 05/23/22 History Mcg = 99230 Iu)] HYDROcodone/APAP 7.5-325MG [[place] 1 tab PO DIRECTED PRN 05/12/21 05/23/22 History 7.5-325] Ibuprofen [Motrin] 800 mg PO QID PRN 05/12/21 05/23/22 History amLODIPine [Norvasc] 10 mg PO DAILY 05/12/21 05/23/22 History hydrALAZINE HCL [Apresoline] 100 mg PO TID 05/12/21 05/23/22 History Metoprolol Succinate (ER) [Toprol 50 mg PO BID 05/23/22 05/23/22 History Xl] Sertraline [Zoloft] 25 mg PO DAILY 05/23/22 05/23/22 History Spironolactone-Hctz 25-25Mg 1 tab PO DAILY 05/23/22 05/23/22 History [Aldactazide 25-25Mg] Allergies Allergy/AdvReac Type Severity Reaction Status Date / Time JASMYN Inhibitors Allergy per Verified 05/23/22 12:49 paperwork from of egg Allergy Rash/Hives Verified 05/23/22 12:49 wool Allergy Rash/Hives Verified 05/23/22 12:49 fentanyl AdvReac Unknown Verified 05/23/22 12:49 morphine AdvReac Unknown Verified 05/23/22 12:49 quetiapine [From Seroquel] AdvReac Hallucinati Verified 05/23/22 12:49 ons Physical Exam Vitals: Vital Signs Temp Pulse Resp BP Pulse Ox 05/23/22 08:39 98.4 F 73 18 130/93 97 Intake and Output 05/22/22 05/23/22 05/23/22 22:59 06:59 14:59 Other: Weight 77.111 kg Results 05/23/22 08:42 05/23/22 08:42 Cardiac Enzymes 05/23/22 05/23/22 Range/Units 08:42 08:42 AST 26 (17-59) U/L Troponin I 0.014 (0.000-0.034) ng/mL Coagulation 05/23/22 Range/Units 08:42 PT 10.1 (9.0-12.0) sec APTT 25.9 (22.0-30.0) sec CBC 05/23/22 Range/Units 08:42 WBC 4.5 (3.8-10.6) k/uL RBC 4.20 L (4.30-5.90) m/uL Hgb 13.1 (13.0-17.5) gm/dL Hct 37.4 L (39.0-53.0) % Plt Count 190 (150-450) k/uL Comprehensive Metabolic Panel 05/23/22 Range/Units 08:42 Sodium 134 L (137-145) mmol/L Potassium 2.8 L (3.5-5.1) mmol/L Chloride 97 L (98-107) mmol/L Carbon Dioxide 29 (22-30) mmol/L BUN 18 (9-20) mg/dL Creatinine 1.07 (0.66-1.25) mg/dL Glucose 106 H (74-99) mg/dL Calcium 9.2 (8.4-10.2) mg/dL AST 26 (17-59) U/L ALT 19 (4-49) U/L Alkaline Phosphatase 67 (38-126) U/L Total Protein 7.3 (6.3-8.2) g/dL Albumin 4.1 (3.5-5.0) g/dL Current Medications Generic Name Dose Route Start Last Admin Trade Name Freq PRN Reason Stop Dose Admin Heparin Sodium (Porcine) 5,000 unit 05/23/22 16:00 Heparin Sodium,Porcine/Pf 5,000 Unit/0.5 Ml Syringe SQ Q8HR EDGAR Potassium Chloride 10 meq/ IV 100 mls @ 100 mls/hr 05/23/22 10:00 05/23/22 10:37 Solution IVPB 05/23/22 13:59 100 mls/hr Q1HR EDGAR Administration Protocol Morphine Sulfate 4 mg 05/23/22 09:57 Morphine Sulfate 4 Mg/Ml Syringe IVP Q4HR PRN Pain Naloxone HCl 0.2 mg 05/23/22 10:19 Naloxone 0.4 Mg/Ml 1 Ml Vial IV Q2M PRN Opioid Reversal Nitroglycerin 0.4 mg 05/23/22 08:47 05/23/22 09:22 Nitroglycerin Sl Tabs 0.4 Mg Tab SUBLINGUAL 0.4 mg Q5M PRN Administration Chest Pain Intake and Output 05/22/22 05/23/22 05/23/22 22:59 06:59 14:59 Other: Weight 77.111 kg Patient Weight 05/24/22 06:59 Weight 77.111 kg 05/23/22 08:42 05/23/22 08:42
[2022-05-23] MEDS ORDERED: IBUPROFEN 800 MG TAB PO PRN (14:30)
[2022-05-23] MEDS: hydrALAZINE HCL 50 MG TAB PO SCH ×2 (15:12→21:17)
--- NOTE | 2022-05-23 16:00 | P.HPIM ---
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 He presented to the emergency department with a chief complaint of chest pain. Patient reports after awakening this morning he began feeling pain to left anterior chest that lasted approximately one hour, reports pain came out of nowhere and was described as a crushing/heavy sensation. He denied any radiation of this pain and denied any associated symptoms including headache, lightheadedness, dizziness, diaphoresis, neck/jaw/back/shoulder pain, nausea, or vomiting. EMS was called and upon their arrival patient was given aspirin and nitro. Patient reported that shortly after receiving sublingual nitroglycerin his chest pain improved and he currently remains chest pain-free at this time. Patient does report feeling lower back pain/discomfort and reports long-standing history of chronic back pain but denies having any changes in or increases in daily chronic pain. Patient underwent full evaluation in the emergency department. EKG was completed revealing sinus mechanism at 67 bpm. Chest x-ray revealing stable small left pleural effusion and mild chronic changes otherwise negative for acute cardiopulmonary process. CBC showing no significant abnormalities. Coagulation profile normal findings. CMP revealing hyponatremia with sodium of 134, hypokalemia with potassium of 2.8 and hypochloremia with chloride of 97. Troponin 0.014. Patient admitted under services with consultation to cardiology. Review of systems: Pertinent positives and negatives as discussed in HPI, a complete review of systems was performed and all other systems are negative. Physical exam: Vital signs reviewed and stable. General: Nontoxic, no distress and appears stated age. Derm: Skin warm and dry, normal coloration for ethnicity. Head: Atraumatic, normocephalic and symmetric. Eyes: EOMs intact, no lid lag, and anicteric sclera. Patient with blindness le ft eye. Mouth: no lip lesions, mucus membranes moist Cardiovascular: regular rate and rhythm with normal S1S2, no murmur, positive posterior tibial pulses bilaterally, and cap refill < 2 seconds. Lungs: Respirations even, regular, and unlabored on room air. Lungs CTA bilaterally, no rhonchi, no rales, no wheezing, and no accessory muscle usage. Abdominal: soft, nontender to palpation, no guarding, no appreciable organomegaly Ext: ROM intact. No gross muscle atrophy, no edema, no contractures Neuro: Speech clear, face symmetrical and CN II-XII grossly intact with no noted focal neuro deficits. Psych: Alert and oriented to person, place, time, and situation. Appropriate and pleasant affect. Assessment and Plan of Care: Chest pain, rule out acute coronary event History of coronary artery disease status post multiple stents Hypertension History of AAA with rupture status post repair -Cardiology consulted, appreciate further recommendations -Telemetry monitoring -Trend troponins -Cardiac diet, NPO at midnight -Continue daily medication regimen with aspirin, amlodipine, hydralazine, metoprolol, and spironolactone/hydrochlorothiazide. -Echocardiogram Hypokalemia -Potassium was 2.8 and replaced. -Telemetry monitoring -We will continue to monitor closely with repeat a.m. labs and replace abnormal electrolyte values as needed. Poorly controlled hypertension -Patient reports long-standing history of poorly controlled hypertension since the age of 19. -Monitor vital signs and continue daily medication regimen with amlodipine, hydralazine, Aldactone, and metoprolol. -Encourage heart healthy diet Nicotine dependence -Strongly Recommend smoking cessation.. -Nicotine patch Chronic back pain -Continue home medication regimen with [place] and Motrin. CODE STATUS: Full code DVT prophylaxis: Heparin Discussed with: Patient and RN Anticipated discharge date: 1-[address]: Home A total of 44 minutes was spent on the care of this complex patient more than 50% of the time was spent in counseling and care coordination. 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 Ot her hx: Pt has recently been exposed to GI illnes in family, sleep disorder, R eye muscle problems/poor vision, History of Any Multi-Drug Resistant Organisms: None Reported Past Surgical History: Appendectomy Additional Past Surgical History / Comment(s): Lap appy with umbilical hernia repair, 01/23/21 aortic repair, 03/21/21 lower spinal repair, 03/25/21 open aortic repair then a leak with a radiologic procedure to correct, bronchoscopies x3 d/t fluid in lungs during aortic aneurysm. Past Anesthesia/Blood Transfusion Reactions: No Reported Reaction Past Psychological History: No Psychological Hx Reported Smoking Status: Current every day smoker Past Alcohol Use History: Rare Past Drug Use History: Marijuana - Past Family History Father Family Medical History: No Reported History, Hypertension Additional Family Medical History / Comment(s): Father long ago in an accident. Mother Family Medical History: Hypertension, Osteoarthritis (OA) Additional Family Medical History / Comment(s): Arrhythmia, lupus Medications and Allergies Home Medications Medication Instructions Recorded Confirmed Type Aspirin 325 mg PO DAILY 05/12/21 05/23/22 History Ergocalciferol [Vitamin D2 (1250 1,250 mcg PO Q30D 05/12/21 05/23/22 History Mcg = 00543 Iu)] HYDROcodone/APAP 7.5-325MG [[place] 1 tab PO DIRECTED PRN 05/12/21 05/23/22 History 7.5-325] Ibuprofen [Motrin] 800 mg PO QID PRN 05/12/21 05/23/22 History amLODIPine [Norvasc] 10 mg PO DAILY 05/12/21 05/23/22 History hydrALAZINE HCL [Apresoline] 100 mg PO TID 05/12/21 05/23/22 History Metoprolol Succinate (ER) [Toprol 50 mg PO BID 05/23/22 05/23/22 History XL] Sertraline [Zoloft] 25 mg PO DAILY 05/23/22 05/23/22 History Spironolactone-Hctz 25-25Mg 1 tab PO DAILY 05/23/22 05/23/22 History [Aldactazide 25-25 MG] Nicotine 14Mg/24Hr Patch [Habitrol] 1 patch TRANSDERM DAILY 30 Days 05/24/22 Rx #30 patch Allergies Allergy/AdvReac Type Severity Reaction Status Date / Time JASMYN Inhibitors Allergy per Verified 05/23/22 12:49 paperwork from [facility] egg Allergy Rash/Hives Verified 05/23/22 12:49 wool Allergy Rash/Hives Verified 05/23/22 12:49 fentanyl AdvReac Unknown Verified 05/23/22 12:49 quetiapine [From Seroquel] AdvReac Hallucinati Verified 05/23/22 12:49 ons Physical Exam Osteopathic Statement: *. No significant issues noted on an osteopathic structural exam other than those noted in the History and Physical/Consult. Vitals: Vital Signs Temp Pulse Resp BP Pulse Ox 05/23/22 08:39 98.4 F 73 18 130/93 97 Intake and Output 05/22/22 05/23/22 05/23/22 22:59 06:59 14:59 Other: Weight 77.111 kg Results CBC & Chem 7: 05/24/22 06:49 05/24/22 06:49 Labs: Abnormal Lab Results - Last 24 Hours (Table) 05/23/22 05/23/22 Range/Units 08:42 08:42 RBC 4.20 L (4.30-5.90) m/uL Hct 37.4 L (39.0-53.0) % Lymphocytes # (Manual) 0.99 L (1.0-4.8) k/uL Sodium 134 L (137-145) mmol/L Potassium 2.8 L (3.5-5.1) mmol/L Chloride 97 L (98-107) mmol/L Glucose 106 H (74-99) mg/dL Assessment and Plan Assessment: Attending Note Grady Morris NP rendered care for this patient independently, reviewed the findings and plan as documented in the note above. I did not physically speak with our examined the patient on this date.
[2022-05-23] MEDS: HEPARIN SODIUM,PORCINE/PF 5,000 UNIT/0.5 ML SYRINGE SQ SCH ×2 (17:10→23:49)
[2022-05-23] MEDS: NICOTINE 14MG/24HR PATCH TRANSDERM SCH (17:10)
[2022-05-23] MEDS: HYDROcodone/APAP 7.5-325MG 1 EACH TAB PO PRN ×2 (17:10→21:17)
[2022-05-23] MEDS ORDERED: METOPROLOL SUCCINATE (ER) 100 MG TAB.ER.24H PO SCH (21:00)
[2022-05-24] MEDS ORDERED: METOPROLOL SUCCINATE (ER) 50 MG TAB.ER.24H PO STA (00:05)
--- NOTE | 2022-05-24 00:55 | P.EN ---
A team called on this patient to evaluate new EKG changes patient has no new complaint, he presented for chest pain earlier today , had 3 negative trops and was evaluated by cardio and ACS ruled out. upon arrival to the floor a new EKG was done per protocol, and was found to have acute ST changes upon further revision, EKG is showed T wave inversion over precordial leads V1- V4 , Tele monitor was suspecting ST wave elevation upon further review, His T wave inversion has been persistent throughout his 2 most recent EKG done in 2020, however was not seen on his initial EKG upon presentation. No clear ST elevation on repeat EKG today, patient has voltage signs of ventricular hypertrophy with changes related to early repolarization. patient otherwise feeling well, denies any chest pain or trouble breathing at this time I asked the RN to give night time dose of lopressor and continue to monitor
[2022-05-24] MEDS ORDERED: MORPHINE SULFATE 4 MG/ML SYRINGE IVP STA (05:47)
[2022-05-24 08:21] VITALS: RESP 20
[2022-05-24] MEDS ORDERED: amLODIPine 10 MG TAB PO SCH (09:00)
[2022-05-24] MEDS ORDERED: SERTRALINE 25 MG TAB PO SCH (09:00)
[2022-05-24] MEDS ORDERED: SPIRONOLACTONE-HCTZ 25-25MG 1 EACH TAB PO SCH (09:00)
[2022-05-24] MEDS ORDERED: METOPROLOL SUCCINATE (ER) 50 MG TAB.ER.24H PO SCH (09:00)
[2022-05-24] MEDS ORDERED: ASPIRIN 81 MG PO SCH (09:00)
[2022-05-24] MEDS: HEPARIN SODIUM,PORCINE/PF 5,000 UNIT/0.5 ML SYRINGE SQ SCH ×3 (09:09→16:10)
[2022-05-24] MEDS: hydrALAZINE HCL 50 MG TAB PO SCH ×2 (09:09→16:10)
[2022-05-24] MEDS: NICOTINE 14MG/24HR PATCH TRANSDERM SCH (09:12)
[2022-05-24] MEDS ORDERED: ASPIRIN 325 MG TAB PO SCH (09:15)
--- NOTE | 2022-05-24 09:37 | P.PN ---
Subjective Progress Note Date: 05/24/22 HISTORY OF PRESENT ILLNESS: This is a 42-year-old male with a past medical history significant for hypertension and aortic aneurysm with surgical repair 2 last in March,. Patient follows with a Dr. Hopper at the [facility]. We have been asked to see the patient in consultation for chest pain. Patient examined at the bedside in the emergency center. Patient states he presented to the hospital this morning due to left-sided chest pain that started 1 hour before arrival, rated as 8/10. He was provided nitroglycerin sublingually by EMS and aspirin. Nitroglycerin apparently improved his chest pain. Initial blood pressure 130/93. EKG is a sinus rhythm with no acute ST changes. Chest x-ray reveals stable small left pleural effusion and chronic changes. No new acute infiltrate. WBC 4.5, hemoglobin 13.1, platelet count 190. Sodium 134, potassium 2.8, chloride 97, CO2 29, BUN 18, creatinine 1.07. Magnesium 1.9. Troponin 0.014. Echocardiogram 05/12 revealed EF of 55-60% with severe concentric left ventricular hypertrophy, trace mitral regurgitation, trace tricuspid regurgitation Home cardiac medications: Amlodipine 10 mg daily, aspirin 325 mg daily, clonidine 0.6 mg 3 times daily, hydralazine 100 mg 3 times daily, hydrochlorothiazide 50 mg daily, Lopressor 100 mg 3 times daily 05/24 Approximate midnight, patient had episode of chest pain similar to his previously described chest pain and there was concern for EKG changes, A Team was called. EKGs have been reviewed and no clear change noted. Patient does have left ventricular hypertrophy and early repolarization. Patient had been repeated episodes of chest pain on the left side which hurts when he takes a deep breath and also tender with palpation. CT angiogram of the aorta revealed a stable aortic dissection from the aortic arch to the diaphragm. Stable fusiform prominence to the abdominal aorta. Echocardiogram is pending. Troponins negative 4 draws PHYSICAL EXAM: VITAL SIGNS: Reviewed. GENERAL: Well-developed in no acute distress. HEENT: Head is normocephalic. Pupils are equal, round. Sclerae anicteric. Mucous membranes of the mouth are moist. Neck supple. No JVD or thyromegaly LUNGS: Respirations even and unlabored. Lungs essentially clear to auscultation bilaterally. HEART: Regular rate and rhythm. S1 and S2 heard. No murmur. Positive chest wall tenderness on the left side ABDOMEN: Soft. Nondistended. Nontender. EXTREMITIES: Normal range of motion. No clubbing or cyanosis. Peripheral pulses intact. No lower extremity edema NEUROLOGIC: Awake and alert. Oriented x 3. ASSESSMENT: Left-sided chest pain, acute coronary syndrome ruled out History of hypertension History of aortic aneurysm with surgical repair 2 Hypokalemia Nicotine dependence Marijuana use PLAN: Obtain 2D echo to assess cardiac structure and function Resume home cardiac medications potassium replacement has been ordered by the ER Smoking cessation recommended Recommend abstinence from marijuana use If 2-D echocardiogram shows no significant changes, patient is cleared for discharge home today. Further recommendations pending patient course Nurse practitioner note has been reviewed by physician. Signing provider agrees with the documented findings, assessment, and plan of care. Objective - Vital Signs Vital signs: Vital Signs Temp 97.8 F 05/24/22 02:00 Pulse 58 L 05/24/22 02:00 Resp 18 05/24/22 02:00 BP 164/84 05/24/22 02:00 Pulse Ox 97 05/24/22 02:00 FiO2 Intake & Output 05/23/22 05/24/22 05/24/22 18:59 06:59 18:59 Weight 77.111 kg 77.111 kg Other: # Voids 1 - Labs CBC & Chem 7: 05/23/22 08:42 05/23/22 08:42 Labs: Abnormal Lab Results - Last 24 Hours (Table) 05/23/22 05/23/22 Range/Units 08:42 08:42 RBC 4.20 L (4.30-5.90) m/uL Hct 37.4 L (39.0-53.0) % Lymphocytes # (Manual) 0.99 L (1.0-4.8) k/uL Sodium 134 L (137-145) mmol/L Potassium 2.8 L (3.5-5.1) mmol/L Chloride 97 L (98-107) mmol/L Glucose 106 H (74-99) mg/dL
[2022-05-24 10:18] LABS: Basophils # (A) 0.02 X 10*3/uL (0.00-0.10); Basophils % (A) 0.5 %; Eosinophils # (A) 0.21 X 10*3/uL (0.04-0.35); Eosinophils % (A) 5.1 %; HCT 40.4 % (39.6-50.0); HGB 13.4 g/dL (13.0-17.0); Immature Grans, Automated 0.2 %; Lymphocytes # (A) 1.19 X 10*3/uL (0.90-5.00); Lymphocytes % (A) 28.7 %; MCH 29.8 pg (27.0-32.0); MCHC 33.2 g/dL (32.0-37.0); MCV 89.8 fL (80.0-97.0); Mean Platelet Volume 11.8 fL (9.5-12.2); Monocytes # (A) 0.64 X 10*3/uL (0.20-1.00); Monocytes % (A) 15.4 %; NRBC Per 100 WBC 0 /100 WBCS (0.0-0.0); Neutrophils # (A) 2.08 X 10*3/uL (1.80-7.70); Neutrophils % (A) 50.1 %; Platelet Count 228 X 10*3/uL (140-440); RDW 14.5 % (11.5-14.5); WBC 4.15 X 10*3/uL (4.50-10.00)
[2022-05-24 10:30] LABS: African American GFR (CKD) 96.8 (60.0-200.0); Anion Gap 10.2 mmol/L (10.00-18.00); BUN/Creat Ratio 14.45 Ratio (12.00-20.00); Blood Urea Nitrogen 15.9 mg/dL (9.0-27.0); Calcium 9.6 mg/dL (8.7-10.3); Carbon Dioxide 25.8 mmol/L (20.0-27.5); Magnesium 2.1 mg/dL (1.5-2.4); Non-African American GFR(CKD) 83.5 (60.0-200.0); Potassium 3.4 mmol/L (3.5-5.5)
--- NOTE | 2022-05-24 10:30 | CA ---
Transthoracic Echo Report Name: Elan Curry Age: 42 Gender: M : 1980 Exam Date: 05/24/2022 08:15 Exam Location: [facility] Ht (in): 72 Wt (lb): 170 Ordering Physician: Reagan Steven MD Attending/Referring Phys: Load Dispatcher Kimmie Hunt RDCS Procedure CPT: Indications: Chest Pain Cardiac Hx: Technical Quality: Contrast 1: N/A Total Dose (mL): Contrast 2: Total Dose (mL): MEASUREMENTS (Male / Female) Normal Values 2D ECHO LV Diastolic Diameter PLAX 4.7 cm 4.2 - 5.9 / 3.9 - 5.3 cm LV Systolic Diameter PLAX 3.4 cm IVS Diastolic Thickness 1.4 cm 0.6 - 1.0 / 0.6 - 0.9 cm LVPW Diastolic Thickness 1.8 cm 0.6 - 1.0 / 0.6 - 0.9 cm LV Relative Wall Thickness 0.7 RV Internal Dim ED PLAX 3.1 cm LA Systolic Diameter LX 2.9 cm 3.0 - 4.0 / 2.7 - 3.8 cm LA Volume 67.5 cm??? 18 - 58 / 22 - 52 cm??? M-MODE Aortic Root Diameter MM 2.9 cm LA Systolic Diameter MM 4.3 cm LA Ao Ratio MM 1.5 MV E Point Septal Separation 0.3 cm AV Cusp Separation MM 2.3 cm DOPPLER MV Area PHT 3.8 cm??? Mitral E Point Velocity 84.2 cm/s Mitral A Point Velocity 74.0 cm/s Mitral E to A Ratio 1.1 MV Deceleration Time 201.7 ms MV E' Velocity 4.1 cm/s Mitral E to MV E' Ratio 20.6 FINDINGS Left Ventricle Moderately increased septal wall thickness. Left ventricular ejection fraction is estimated at 55%. Right Ventricle Normal right ventricular size and function. Right ventricular systolic pressure within normal limits. Right Atrium Normal right atrial size. Left Atrium Mildly increased left atrial volume. Mitral Valve Mitral valve thickened. Mild mitral regurgitation. Aortic Valve Trileaflet aortic valve. Tricuspid Valve Structurally normal tricuspid valve. Trace to mild tricuspid regurgitation. Pulmonic Valve Structurally normal pulmonic valve. Pericardium Normal pericardium. Aorta Normal size aortic root and proximal ascending aorta. CONCLUSIONS Left ventricular hypertrophy with normal LV function Mild mitral regurgitation Previewed by: Dr. Ted Mcneal MD (Electronically Signed) Final Date: 24 May 2022 10:29
[2022-05-24] MEDS: HYDROcodone/APAP 7.5-325MG 1 EACH TAB PO PRN (11:32)
[2022-05-24] MEDS ORDERED: POTASSIUM CHLORIDE ER 20 MEQ TAB.ER PO STA (15:06)
[2022-05-24 15:12] VITALS: BP 152/86; PULSE 59; TEMP 98.2
--- NOTE | 2022-05-24 15:16 | P.DS ---
Providers Date of admission: 05/23/22 10:22 Expected date of discharge: 05/24/22 Attending physician: Hernandez Virk MD Consults: 05/23/22 10:19 Consult Physician Routine Consulting Provider: [facility] Consult Reason/Comments: chest pain Do you want consulting provider notified?: Yes Primary care physician: Stated None Hospital Course: Discharge Diagnosis: Chest pain, acute coronary event ruled out. History of coronary artery disease status post multiple stents. Continue daily medication regimen with aspirin, amlodipine, hydralazine, metoprolol, and spironolactone/hydrochlorothiazide. Hypertension. History of AAA with rupture status post repair Hypokalemia, replaced. Poorly controlled hypertension. Monitor vital signs and continue daily medication regimen with amlodipine, hydralazine, Aldactone, and metoprolol. Encourage heart healthy diet and highly recommend smoking cessation. Nicotine dependence. Strongly Recommend smoking cessation..Nicotine patch Chronic back pain. Continue home medication regimen with [place] and Motrin. 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 He presented to the emergency department with a chief complaint of chest pain. Patient reports after awakening this morning he began feeling pain to left anterior chest that lasted approximately one hour, reports pain came out of nowhere and was described as a crushing/heavy sensation. He denied any radiation of this pain and denied any associated symptoms including headache, lightheadedness, dizziness, diaphoresis, neck/jaw/back/shoulder pain, nausea, or vomiting. EMS was called and upon their arrival patient was given aspirin and nitro. Patient reported that shortly after receiving sublingual nitroglycerin his chest pain improved and he currently remains chest pain-free at this time. Patient does report feeling lo wer back pain/discomfort and reports long-standing history of chronic back pain but denies having any changes in or increases in daily chronic pain. Patient underwent full evaluation in the emergency department. EKG was completed revealing sinus mechanism at 67 bpm. Chest x-ray revealing stable small left pleural effusion and mild chronic changes otherwise negative for acute cardiopulmonary process. CBC showing no significant abnormalities. Coagulation profile normal findings. CMP revealing hyponatremia with sodium of 134, hypokalemia with potassium of 2.8 and hypochloremia with chloride of 97. Troponin 0.014. Patient admitted under services with consultation to cardiology. Patient reportedly had an episode of similar chest pain overnight and a stat EKG was completed resulting in nursing staff calling a rapid response due to concerns of EKG changes. Patient was evaluated by physician and EKG was reviewed consistent with left ventricular hypertrophy and early repolarization, but negative for acute ST changes. Patient monitored overnight and troponins were trended all negative at 0.014, 0.013, less than 0.012 and less than 0.012. Patient was evaluated by cardiology. Echocardiogram revealing normal EF 55%, left ventricular hypertrophy, and mild mitral regurgitation. Acute coronary event has been ruled out. Vital signs stable at this time. Cardiology recommended outpatient follow-up. Patient is medically stable for discharge home and to follow up outpatient with PCP and cardiology as recommended. No medication changes were made during this admission. Patient to continue cardiac medication regimen with amlodipine, hydralazine, Aldactone, and metoprolol. Physical exam: Vital signs reviewed and stable. General: Nontoxic, no distress and appears stated age. Derm: Skin warm and dry, normal coloration for ethnicity. Head: Atraumatic, normocephalic and symmetric. Eyes: EOMs intact, no lid lag, and anicteric sclera. Patient with blindness left eye. Mouth: no lip lesions, mucus membranes moist Cardiovascular: regular rate and rhythm with normal S1S2, no murmur, positive posterior tibial pulses bilaterally, and cap refill < 2 seconds. Chest wall pain reproducible upon palpation (no bruising, rash, or abnormality noted) Lungs: Respirations even, regular, and unlabored on room air. Lungs CTA bilaterally, no rhonchi, no rales, no wheezing, and no accessory muscle usage. Abdominal: soft, nontender to palpation, no guarding, no appreciable organomegaly Ext: ROM intact. No gross muscle atrophy, no edema, no contractures Neuro: Speech clear, face symmetrical and CN II-XII grossly intact with no noted focal neuro deficits. Psych: Alert and oriented to person, place, time, and situation. Appropriate and pleasant affect. A total of 36 minutes of time were spent preparing this complex discharge summary. Pt was discharged on 05/24/22 at 3:18 PM Grady Morris NP rendered care for this patient independently, reviewed the findings and plan as documented in the note above. I did not physically speak with or examine the patient on this date. Patient Condition at Discharge: Stable Plan - Discharge Summary New Discharge Prescriptions: New Nicotine 14Mg/24Hr Patch [Habitrol] 1 patch TRANSDERM DAILY 30 Days #30 patch Continue Ibuprofen [Motrin] 800 mg PO QID PRN PRN Reason: Pain hydrALAZINE HCL [Apresoline] 100 mg PO TID Sertraline [Zoloft] 25 mg PO DAILY amLODIPine [Norvasc] 10 mg PO DAILY HYDROcodone/APAP 7.5-325MG [[place] 7.5-325] 1 tab PO DIRECTED PRN PRN Reason: Pain Aspirin 325 mg PO DAILY Ergocalciferol [Vitamin D2 (1250 Mcg = 66781 Iu)] 1,250 mcg PO Q30D Spironolactone-Hctz 25-25Mg [Aldactazide 25-25 MG] 1 tab PO DAILY Metoprolol Succinate (ER) [Toprol XL] 50 mg PO BID Discharge Medication List Aspirin 325 mg PO DAILY 05/12/21 [History] Ergocalciferol [Vitamin D2 (1250 Mcg = 92859 Iu)] 1,250 mcg PO Q30D 05/12/21 [History] HYDROcodone/APAP 7.5-325MG [[place] 7.5-325] 1 tab PO DIRECTED PRN 05/12/21 [History] Ibuprofen [Motrin] 800 mg PO QID PRN 05/12/21 [History] amLODIPine [Norvasc] 10 mg PO DAILY 05/12/21 [History] hydrALAZINE HCL [Apresoline] 100 mg PO TID 05/12/21 [History] Metoprolol Succinate (ER) [Toprol XL] 50 mg PO BID 05/23/22 [History] Sertraline [Zoloft] 25 mg PO DAILY 05/23/22 [History] Spironolactone-Hctz 25-25Mg [Aldactazide 25-25 MG] 1 tab PO DAILY 05/23/22 [History] Nicotine 14Mg/24Hr Patch [Habitrol] 1 patch TRANSDERM DAILY 30 Days #30 patch 05/24/22 [Rx] Follow up Appointment(s)/Referral(s): Amol Barr MD [REFERRING] - 1-2 Days Ted Mcneal MD [STAFF PHYSICIAN] - 06/01/22 10:15 am Patient Instructions/Handouts: Chest Pain (DC), Hypokalemia (DC) Activity/Diet/Wound Care/Special Instructions: Activity: As tolerated. Take breaks as needed. Diet: Heart healthy and carb consistent diet. Avoid salts, or foods with hidden salts such as canned or boxed foods and frozen dinners. Extra salt makes your heart work harder and traps the fluid in your body for longer. Special Instructions: Take all of your medications as directed and remember to keep all of your doctor's appointments and follow-up as needed. Highly recommend smoking cessation. Thank you for allowing us to participate in your care, it was truly a pleasure having you for our patient!!! Discharge Disposition: HOME SELF-CARE
== END 2022-05-24 16:40 | disposition home or self-care (01) ==
LOC: EC 08:36 → 6NMEDSUR 10:22
PROVIDERS: ADMIT Internal Medicine; ATTEND Internal Medicine
DX: R07.89 Other chest pain (principal); E87.6 Hypokalemia; I25.10 Atherosclerotic heart disease of native coronary artery without angina pectoris; I11.9 Hypertensive heart disease without heart failure; J90 Pleural effusion, not elsewhere classified; E87.1 Hypo-osmolality and hyponatremia; I34.0 Nonrheumatic mitral (valve) insufficiency; I69.398 Other sequelae of cerebral infarction; H54.62 Unqualified visual loss, left eye, normal vision right eye; E87.8 Other disorders of electrolyte and fluid balance, not elsewhere classified; G47.9 Sleep disorder, unspecified; F17.200 Nicotine dependence, unspecified, uncomplicated; G89.29 Other chronic pain; M54.50 Low back pain, unspecified; M54.2 Cervicalgia; Z79.82 Long term (current) use of aspirin; Z79.899 Other long term (current) drug therapy; Z91.012 Allergy to eggs; Z88.5 Allergy status to narcotic agent; Z88.8 Allergy status to other drugs, medicaments and biological substances; Z91.048 Other nonmedicinal substance allergy status; Z71.6 Tobacco abuse counseling; Z86.718 Personal history of other venous thrombosis and embolism; Z95.5 Presence of coronary angioplasty implant and graft; Z86.79 Personal history of other diseases of the circulatory system; Z87.01 Personal history of pneumonia (recurrent); Z90.49 Acquired absence of other specified parts of digestive tract; Z98.890 Other specified postprocedural states; Z84.89 Family history of other specified conditions; Z82.49 Family history of ischemic heart disease and other diseases of the circulatory system; Z82.61 Family history of arthritis
CPT/HCPCS: 96376; 96372 ×2; 96365; 96366; 96375; 99285; 36415; 93005; 93306; 80053; 80048; 83735 ×2; 84484 ×2; 85025 ×2; 85610; 85730; 71046; 71275; 74174; G0378 ×2; S4990 ×2; J2270 ×2; J3480; Q9967; J1644 ×2

== ENCOUNTER 2022-06-05 00:20 | Emergency (ER) | payer OTHER ==
[2022-06-05] MEDS ORDERED: MORPHINE SULFATE 4 MG/ML SYRINGE IVP STA ×2 (00:39→01:15)
[2022-06-05 00:41] VITALS: TEMP 97.1
[2022-06-05] MEDS ORDERED: ONDANSETRON 4 MG/2 ML VIAL IVP STA (00:42)
[2022-06-05 00:50] LABS: Basophils # (A) 0.1 k/uL (0-0.2); Basophils % (A) 1 %; Eosinophils # (A) 0.2 k/uL (0-0.7); Eosinophils % (A) 2 %; HCT 40.4 % (39.0-53.0); HGB 13.8 gm/dL (13.0-17.5); Lymphocytes # (A) 1.8 k/uL (1.0-4.8); Lymphocytes % (A) 21 %; MCH 30.8 pg (25.0-35.0); MCHC 34.2 g/dL (31.0-37.0); MCV 90.1 fL (80.0-100.0); Mean Platelet Volume 8.8; Monocytes # (A) 0.6 k/uL (0-1.0); Monocytes % (A) 7 %; Neutrophils # (A) 5.7 k/uL (1.3-7.7); Neutrophils % (A) 66 %; Platelet Count 246 k/uL (150-450); RBC 4.48 m/uL (4.30-5.90); RDW 13.6 % (11.5-15.5); WBC 8.6 k/uL (3.8-10.6)
[2022-06-05 01:00] LABS: ALT 23 U/L (4-49); AST 25 U/L (17-59); African American GFR (CKD) 83 (>60 ml/min/1.73 sqM); Albumin 4.5 g/dL (3.5-5.0); Alcohol <10 mg/dL; Alkaline Phosphatase 85 U/L (38-126); Anion Gap 9 mmol/L; Blood Urea Nitrogen 28 mg/dL (9-20); Calcium 9.7 mg/dL (8.4-10.2); Carbon Dioxide 23 mmol/L (22-30); Chloride 104 mmol/L (98-107); Glucose 125 mg/dL (74-99); Lipase 119 U/L (23-300); Magnesium 1.7 mg/dL (1.6-2.3); Non-African American GFR(CKD) 72 (>60 ml/min/1.73 sqM); Potassium 2.9 mmol/L (3.5-5.1); Sodium 136 mmol/L (137-145); Total Bilirubin 0.6 mg/dL (0.2-1.3); Total Protein 8.1 g/dL (6.3-8.2)
[2022-06-05 01:29] LABS: Partial Thromboplastin Time 25.3 sec (22.0-30.0); Prothrombin Time 10.6 sec (9.0-12.0)
--- NOTE | 2022-06-05 01:31 | CT ---
EXAMINATION TYPE: CT angio thor/abd pel aorta DATE OF EXAM: 06/05/2022 COMPARISON: 05/23/2022 HISTORY: sever chest and back pain CT DLP: 1006.7 mGycm Automated exposure control for dose reduction was used. CONTRAST: Performed with IV Contrast, patient injected with 100 mL of Isovue 370. Images obtained from the thoracic inlet to the floor the pelvis with the IV contrast. There are Three -D postprocessed images. There is mild pulmonary emphysema at the lung apices. There is normal branching pattern of the great vessels on the aortic arch. There is endograft in the descending thoracic aorta near the aortic arch. There is a dissection of the descending thoracic aorta extending from the aortic arch to the level o f the celiac artery. The descending aorta measures up to 3.7 cm. The intimal flap in the aortic aneu rysm extends to the diaphragm and the celiac artery. No dissection seen in the branches of the abdomi nal aorta. There is arterial flow in the renal arteries and iliac and femoral arteries. 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 There is some aneurysmal changes of the femoral arteries which measure 12 mm. No contrast extravasation. There is aneurysm of the mid and low er abdominal aorta that measures up to 4.4 cm. No contrast extravasation. No evidence of hemodynamic stenosis. There is some circumferential thrombus around the abdominal aortic aneurysm measuring up to 5 mm. Liver spleen pancreas and stomach gallbladder appear intact. The bile ducts are not dilated. No evide nce of a bowel obstruction. No free air. No ascites. No mesenteric edema. Left kidney is relatively small with significant decreased cortical enhancement on the angiographic i mages and consistent with atrophy and ischemia and abnormality has progressed compared to recent exam . IMPRESSION: No evidence of pulmonary embolism. No suspicious pulmonary mass. There is a stent in the proximal descending thoracic aorta. There is dissection of the descending tho racic aorta as above which is not changed in appearance compared to recent CT scan of 05/23/2022. There is aneurysm of the descending aorta and the lower abdominal aorta without change in size compar ed to previous exam. 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 There is progression of the left renal ischemia and atrophy compared to recent exam.
[2022-06-05] MEDS ORDERED: hydrALAZINE HCL 20 MG/ML 1 ML VIAL IVP STA (01:42)
[2022-06-05] MEDS ORDERED: hydrALAZINE HCL 50 MG TAB PO STA (02:28)
[2022-06-05] MEDS ORDERED: POTASSIUM CHLORIDE ER 20 MEQ TAB.ER PO STA (02:28)
[2022-06-05] MEDS ORDERED: HYDROcodone/APAP 5-325MG 1 EACH TAB PO STA (02:29)
--- NOTE | 2022-06-05 04:51 | ED ---
General Adult HPI - General Chief complaint: Chest Pain Stated complaint: Chest Pain Time Seen by Provider: 06/05/22 00:31 Source: patient, police, EMS Mode of arrival: EMS Limitations: no limitations - History of Present Illness Initial comments: This is a 42-year-old male with a reported past medical history including previous aortic dissection an AAA status post repair presented to the emergency department via police custody after he stated that he had chest pain and discomfort at intermediate. The patient stated that he was laying on the floor for several hours and had not received his medications on time. The patient stated that he had left-sided chest pain that was consistent and was sharp in nature. The patient stated this is been going on for the last several hours and stated that he has had similar episodes in the past. The patient also reported associated nausea and vomiting which she stated is his signaled that his blood pressure is elevated. The patient denied any lightheadedness or dizziness as well as any numbness or tingling in any extremities. The patient denied any fevers and chills as well. - Related Data Home Medications Medication Instructions Recorded Confirmed Aspirin 325 mg PO DAILY 05/12/21 05/23/22 Ergocalciferol [Vitamin D2 (1250 1,250 mcg PO Q30D 05/12/21 05/23/22 Mcg = 33547 Iu)] HYDROcodone/APAP 7.5-325MG [[place] 1 tab PO DIRECTED PRN 05/12/21 05/23/22 7.5-325] Ibuprofen [Motrin] 800 mg PO QID PRN 05/12/21 05/23/22 amLODIPine [Norvasc] 10 mg PO DAILY 05/12/21 05/23/22 hydrALAZINE HCL [Apresoline] 100 mg PO TID 05/12/21 05/23/22 Metoprolol Succinate (ER) [Toprol 50 mg PO BID 05/23/22 05/23/22 XL] Sertraline [Zoloft] 25 mg PO DAILY 05/23/22 05/23/22 Spironolactone-Hctz 25-25Mg 1 tab PO DAILY 05/23/22 05/23/22 [Aldactazide 25-25 MG] Previous Rx's Medication Instructions Recorded Nicotine 14Mg/24Hr Patch [Habitrol] 1 patch TRANSDERM DAILY 30 Days 05/24/22 #30 patch Allergies Allergy/AdvReac Type Severity Reaction Status Date / Time JASMYN Inhibitors Allergy per Verified 05/23/22 12:49 paperwork from [facility] egg Allergy Rash/Hives Verified 05/23/22 12:49 wool Allergy Rash/Hives Verified 05/23/22 12:49 fentanyl AdvReac Unknown Verified 05/23/22 12:49 quetiapine [From Seroquel] AdvReac Hallucinati Verified 05/23/22 12:49 ons Review of Systems ROS Statement: Those systems with pertinent positive or pertinent negative responses have been documented in the HPI. ROS Other: All systems not noted in ROS Statement are negative. 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 Other hx: Pt has recently been exposed to GI illnes in family, sleep disorder, R eye muscle problems/poor vision, History of Any Multi-Drug Resistant Organisms: None Reported Past Surgical History: Appendectomy Additional Past Surgical History / Comment(s): Lap appy with umbilical hernia repair, 01/23/21 aortic repair, 03/21/21 lower spinal repair, 03/25/21 open aortic repair then a leak with a radiologic procedure to correct, bronchoscopies x3 d/t fluid in lungs during aortic aneurysm. Past Anesthesia/Blood Transfusion Reactions: No Reported Reaction Past Psychological History: No Psychological Hx Reported Smoking Status: Current every day smoker Past Alcohol Use History: Rare Past Drug Use History: Marijuana - Past Family History Father Family Medical History: No Reported History, Hypertension Additional Family Medical History / Comment(s): Father long ago in an accident. Mother Family Medical History: Hypertension, Osteoarthritis (OA) Additional Family Medical History / Comment(s): Arrhythmia, lupus General Exam Limitations: no limitations General appearance: alert, in no apparent distress, in distress (Intermittently in distress secondary to left-sided chest pain) Head exam: Present: atraumatic, normocephalic Eye exam: Present: normal appearance, PERRL Pupils: Present: normal accommodation ENT exam: Present: normal exam, normal oropharynx, mucous membranes moist Neck exam: Present: normal inspection, full ROM Respiratory exam: Present: normal lung sounds bilaterally Cardiovascular Exam: Present: regular rate, normal rhythm, normal heart sounds GI/Abdominal exam: Present: soft, tenderness (Mild tenderness noted to the left upper quadrant), normal bowel sounds Extremities exam: Present: normal inspection, full ROM Back exam: Present: normal inspection, full ROM Neurological exam: Present: alert, oriented X3, CN II-XII intact Psychiatric exam: Present: normal affect, normal mood Skin exam: Present: warm, dry Course Vital Signs 06/05/22 06/05/22 06/05/22 00:39 01:07 01:23 Temperature 97.1 F L Pulse Rate 66 67 54 L Respiratory 24 22 16 Rate Blood Pressure 195/98 168/100 166/86 O2 Sat by Pulse 100 100 100 Oximetry 06/05/22 06/05/22 06/05/22 01:47 02:30 02:52 Temperature Pulse Rate 59 L 47 L 68 Respiratory 18 16 Rate Blood Pressure 179/112 185/97 189/127 O2 Sat by Pulse 100 Oximetry 06/05/22 06/05/22 03:44 03:48 Temperature Pulse Rate 68 Respiratory Rate Blood Pressure 159/140 192/94 O2 Sat by Pulse Oximetry EKG Findings - EKG Comments: EKG Findings:: An EKG was obtained was interpreted by myself showing a rate of 64, ID interval of 116, QR congregational 96 and QTC of 450. This EKG showed a normal sinus rhythm with a occasional PVC. There was no ST segment elevation or depression noted. Medical Decision Making - Medical Decision Making Was pt. sent in by a medical professional or institution? @ -Police, patient is in custody Did you speak to anyone other than the patient for history? @ -No Did you review nursing and triage notes? @ -Nursing triage notes were reviewed Were old charts reviewed? @ -Previous charts and admissions to the emergency Department were reviewed Differential Diagnosis? @ -Acute coronary syndrome, worsening aortic dissection, PE, pneumothorax EKG interpreted by me (3pts min.)? @ -As above X-rays interpreted by me (1pt min.)? @ -[none] CT interpreted by me (1pt min.)? @ -A CT of the chest, abdomen and pelvis to rule out dissection was obtained. This CT was interpreted by myself and showed no evidence of PE or pulmonary mass. There was a stent in the proximal descending thoracic aorta. There is a dissection the descending thoracic aorta as above which is unchanged from the previous computed tomography scan on 05/23/2022. There is also an aneurysm the descending aorta and the lower abdominal aorta without change in size compared to the previous exam. There is an aneurysm of the iliac and femoral arteries without change. U/S interpreted by me (1pt. min.)? @ -[none] What testing was considered but not performed? (CT, X-rays, U/S, labs)? Why? @None What meds were considered but not given? Why? @ -[none] Did you discuss the management of the patient with other professionals? @ -None Did you reconcile home meds? @ -[none] Was smoking cessation discussed for >3mins.? @ -Yes Was critical care preformed (if so, how long)? @ -Yes, see above Were there social determinants of health that impacted care today? How? (Homelessness, low income, unemployed, alcoholism, drug addiction, transportation, low edu. Level, literacy, decrease access to med. care, intermediate, rehab)? @ -Incarcerated Was there de-escalation of care discussed even if they declined? (Discuss DNR or withdrawal of care, Hospice)? @ -No What co-morbidities impacted this encounter? (DM, HTN, Smoking, COPD, CAD, Cancer, CVA, Hep., AIDS, mental health diagnosis, sleep apnea, morbid obesity)? @ -Hypertension, previous aortic dissection and AAA Was patient admitted / discharged? @ -The patient was seen and evaluated emergency department. Physical exam, the patient was resting in bed with intermittent distress secondary to left-sided chest pain. Vital signs admission did show hypertension. Due to this finding in the setting of the patient's previous history of dissection, workup was expedited including a CTA of the chest, abdomen and pelvis which resulted as stable. The patient received multiple pain medications in the emergency department as well as having his blood pressure decreased. Once the patient's blood pressure was decreased to did not any further chest pain or discomfort. On chart review, it was determined the patient had similar symptoms 2 weeks ago and had a negative workup by cardiology. Because the patient's chest pain was resolved with decreasing blood pressure, the patient's chest pain was like he secondary to hypertension causing pain with the dissection flap. The patient denied any worsening of his dissection and therefore remain stable emergency department. The patient was given a dose of pain medications as well as further blood pressure medications and was observed emergency department for several hours to make sure his blood pressure did continue to decrease. The patient had significant decrease of his blood pressure to 150/90 and stated that his pain was resolved with this decrease in blood pressure. The patient was deemed stable for discharge back to police custody and intermediate. The patient was advised to continue take his medications as scheduled and to report back to the emergency department if his chest pain became acutely worse or had increasing shortness of breath. The patient agreed to this and all discretions were answered. The patient was discharged back to police custody to go back to intermediate in stable condition. Undiagnosed new problem with uncertain prognosis? @ -[none] Drug Therapy requiring intensive monitoring for toxicity (Heparin, Nitro, Insulin, Cardizem)? @ -[none] Were any procedures done? @ -[none] Diagnosis/symptom? @ -Chest pain likely secondary to uncontrolled hypertension Acute, or Chronic, or Acute on Chronic? @ -Acute on chronic Uncomplicated (without systemic symptoms) or Complicated (systemic symptoms)? @ -Complicated Side effects of treatment? @ -[none] Exacerbation, Progression, or Severe Exacerbation] @ -Severe exacerbation Poses a threat to life or bodily function? @ -Yes - Lab Data Result diagrams: 06/05/22 00:41 06/05/22 00:41 Lab Results 06/05/22 06/05/22 06/05/22 Range/Units 00:41 00:41 00:41 WBC 8.6 (3.8-10.6) k/uL RBC 4.48 (4.30-5.90) m/uL Hgb 13.8 (13.0-17.5) gm/dL Hct 40.4 (39.0-53.0) % MCV 90.1 (80.0-100.0) fL MCH 30.8 (25.0-35.0) pg MCHC 34.2 (31.0-37.0) g/dL RDW 13.6 (11.5-15.5) % Plt Count 246 (150-450) k/uL MPV 8.8 Neutrophils % 66 % Lymphocytes % 21 % Monocytes % 7 % Eosinophils % 2 % Basophils % 1 % Neutrophils # 5.7 (1.3-7.7) k/uL Lymphocytes # 1.8 (1.0-4.8) k/uL Monocytes # 0.6 (0-1.0) k/uL Eosinophils # 0.2 (0-0.7) k/uL Basophils # 0.1 (0-0.2) k/uL PT 10.6 (9.0-12.0) sec INR 1.0 (<1.2) APTT 25.3 (22.0-30.0) sec Sodium 136 L (137-145) mmol/L Potassium 2.9 L (3.5-5.1) mmol/L Chloride 104 (98-107) mmol/L Carbon Dioxide 23 (22-30) mmol/L Anion Gap 9 mmol/L BUN 28 H (9-20) mg/dL Creatinine 1.25 (0.66-1.25) mg/dL Est GFR (CKD-EPI)AfAm 83 (>60 ml/min/1.73 sqM) Est GFR (CKD-EPI)NonAf 72 (>60 ml/min/1.73 sqM) Glucose 125 H (74-99) mg/dL Calcium 9.7 (8.4-10.2) mg/dL Magnesium 1.7 (1.6-2.3) mg/dL Total Bilirubin 0.6 (0.2-1.3) mg/dL AST 25 (17-59) U/L ALT 23 (4-49) U/L Alkaline Phosphatase 85 (38-126) U/L Troponin I (0.000-0.034) ng/mL NT-Pro-B Natriuret Pep pg/mL Total Protein 8.1 (6.3-8.2) g/dL Albumin 4.5 (3.5-5.0) g/dL Lipase 119 (23-300) U/L Serum Alcohol <10 mg/dL 06/05/22 06/05/22 Range/Units 00:41 00:41 WBC (3.8-10.6) k/uL RBC (4.30-5.90) m/uL Hgb (13.0-17.5) gm/dL Hct (39.0-53.0) % MCV (80.0-100.0) fL MCH (25.0-35.0) pg MCHC (31.0-37.0) g/dL RDW (11.5-15.5) % Plt Count (150-450) k/uL MPV Neutrophils % % Lymphocytes % % Monocytes % % Eosinophils % % Basophils % % Neutrophils # (1.3-7.7) k/uL Lymphocytes # (1.0-4.8) k/uL Monocytes # (0-1.0) k/uL Eosinophils # (0-0.7) k/uL Basophils # (0-0.2) k/uL PT (9.0-12.0) sec INR (<1.2) APTT (22.0-30.0) sec Sodium (137-145) mmol/L Potassium (3.5-5.1) mmol/L Chloride (98-107) mmol/L Carbon Dioxide (22-30) mmol/L Anion Gap mmol/L BUN (9-20) mg/dL Creatinine (0.66-1.25) mg/dL Est GFR (CKD-EPI)AfAm (>60 ml/min/1.73 sqM) Est GFR (CKD-EPI)NonAf (>60 ml/min/1.73 sqM) Glucose (74-99) mg/dL Calcium (8.4-10.2) mg/dL Magnesium (1.6-2.3) mg/dL Total Bilirubin (0.2-1.3) mg/dL AST (17-59) U/L ALT (4-49) U/L Alkaline Phosphatase (38-126) U/L Troponin I <0.012 (0.000-0.034) ng/mL NT-Pro-B Natriuret Pep 135 pg/mL Total Protein (6.3-8.2) g/dL Albumin (3.5-5.0) g/dL Lipase (23-300) U/L Serum Alcohol mg/dL Critical Care Time Critical Care Time: Yes Total Critical Care Time: 38 Disposition Clinical Impression: Chest pain, Hypertension Disposition: HOME SELF-CARE Condition: Stable Instructions (If sedation given, give patient instructions): Chest Pain (ED), Hypertension (ED) Is patient prescribed a controlled substance at d/c from ED?: No Referrals: None,Stated [Primary Care Provider] - 1-2 days Time of Disposition: 04:50
[2022-06-05 04:57] VITALS: BP 156/90; PULSE 54; RESP 18
== END 2022-06-05 05:32 | disposition home or self-care (01) ==
LOC: EC 00:20
DX: R07.9 Chest pain, unspecified (principal); I10 Essential (primary) hypertension; Z86.73 Personal history of transient ischemic attack (TIA), and cerebral infarction without residual deficits; Z86.718 Personal history of other venous thrombosis and embolism; F17.200 Nicotine dependence, unspecified, uncomplicated; F12.90 Cannabis use, unspecified, uncomplicated; Z88.8 Allergy status to other drugs, medicaments and biological substances; Z91.012 Allergy to eggs; Z91.048 Other nonmedicinal substance allergy status; Z88.6 Allergy status to analgesic agent; Z79.82 Long term (current) use of aspirin; Z79.899 Other long term (current) drug therapy
CPT/HCPCS: 36415; 93005; 83880; 80053; 83690; 83735; 84484; 85025; 85610; 85730; 71275; 74174; 99291; 96374; 96375 ×2; 96376; G0480; J2270; J0360; J2405; Q9967; 80320

== ENCOUNTER 2022-06-06 01:50 | Inpatient (IN) | payer OTHER ==
[2022-06-06] MEDS ORDERED: SODIUM CHLORIDE 0.9% 1,000 ML IV STA (02:08)
[2022-06-06] MEDS ORDERED: ONDANSETRON 4 MG/2 ML VIAL IVP STA (02:08)
[2022-06-06] MEDS ORDERED: MORPHINE SULFATE 4 MG/ML SYRINGE IVP STA ×2 (02:09→02:42)
[2022-06-06] MEDS ORDERED: hydrALAZINE HCL 20 MG/ML 1 ML VIAL IVP STA ×2 (02:19→03:15)
--- NOTE | 2022-06-06 02:27 | ED ---
Chest Pain HPI - General Chief Complaint: Chest Pain Stated Complaint: Chest pain Time Seen by Provider: 06/06/22 01:59 Source: patient, police Mode of arrival: ambulatory - History of Present Illness Initial Comments: Patient is a 42-year-old male presenting with chief complaint of chest pain. Patient has history of AAA with repair. Patient was seen here yesterday for the same complaints, symptoms resolved once blood pressure was lowered. CT obtained showed no change from previous study. Patient was determined stable and discharged home. Patient states that he has been having the pain as well as nausea and vomiting for the last 5-6 hours. Pain is sharp in nature. Located on the left side of the chest. Pain is worse with movement. No fever, chills, cough, congestion, sore throat, palpitations, weakness, numbness, tingling - Related Data Home Medications Medication Instructions Recorded Confirmed Aspirin 325 mg PO DAILY 05/12/21 05/23/22 Ergocalciferol [Vitamin D2 (1250 1,250 mcg PO Q30D 05/12/21 05/23/22 Mcg = 19867 Iu)] HYDROcodone/APAP 7.5-325MG [[place] 1 tab PO DIRECTED PRN 05/12/21 05/23/22 7.5-325] Ibuprofen [Motrin] 800 mg PO QID PRN 05/12/21 05/23/22 amLODIPine [Norvasc] 10 mg PO DAILY 05/12/21 05/23/22 hydrALAZINE HCL [Apresoline] 100 mg PO TID 05/12/21 05/23/22 Metoprolol Succinate (ER) [Toprol 50 mg PO BID 05/23/22 05/23/22 XL] Sertraline [Zoloft] 25 mg PO DAILY 05/23/22 05/23/22 Spironolactone-Hctz 25-25Mg 1 tab PO DAILY 05/23/22 05/23/22 [Aldactazide 25-25 MG] Previous Rx's Medication Instructions Recorded Nicotine 14Mg/24Hr Patch [Habitrol] 1 patch TRANSDERM DAILY 30 Days 05/24/22 #30 patch Allergies Allergy/AdvReac Type Severity Reaction Status Date / Time JASMYN Inhibitors Allergy per Verified 06/06/22 01:56 paperwork from [facility] egg Allergy Rash/Hives Verified 06/06/22 01:56 wool Allergy Rash/Hives Verified 06/06/22 01:56 fentanyl AdvReac Unknown Verified 06/06/22 01:56 quetiapine [From Seroquel] AdvReac Hallucinati Verified 06/06/22 01:56 ons Review of Systems ROS Statement: Those systems with pertinent positive or pertinent negative responses have been documented in the HPI. ROS Other: All systems not noted in ROS Statement are negative. EKG Findings - EKG Comments: EKG Findings:: Sinus rhythm with sinus arrhythmia. Ventricular rate 63. IA interval 136. QRS 90. QT 422. QTC 430. 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 Other hx: Pt has recently been exposed to GI illnes in family, sleep disorder, R eye muscle problems/poor vision, History of Any Multi-Drug Resistant Organisms: None Reported Past Surgical History: Appendectomy Additional Past Surgical History / Comment(s): Lap appy with umbilical hernia repair, 01/23/21 aortic repair, 03/21/21 lower spinal repair, 03/25/21 open aortic repair then a leak with a radiologic procedure to correct, bronchoscopies x3 d/t fluid in lungs during aortic aneurysm. Past Anesthesia/Blood Transfusion Reactions: No Reported Reaction Past Psychological History: No Psychological Hx Reported Smoking Status: Current every day smoker Past Alcohol Use History: Rare Past Drug Use History: Marijuana - Past Family History Father Family Medical History: No Reported History, Hypertension Additional Family Medical History / Comment(s): Father long ago in an accident. Mother Family Medical History: Hypertension, Osteoarthritis (OA) Additional Family Medical History / Comment(s): Arrhythmia, lupus General Exam Limitations: no limitations General appearance: alert, in no apparent distress Head exam: Present: atraumatic, normocephalic, normal inspection Eye exam: Present: normal appearance Neck exam: Present: normal inspection Respiratory exam: Present: normal lung sounds bilaterally. Absent: respiratory distress, wheezes, rales, rhonchi, stridor Cardiovascular Exam: Present: regular rate, normal rhythm, normal heart sounds. Absent: systolic murmur, diastolic murmur, rubs, gallop, clicks Neurological exam: Present: alert, oriented X3, CN II-XII intact Psychiatric exam: Present: normal affect, normal mood Skin exam: Present: warm, dry, intact, normal color. Absent: rash Course Vital Signs 06/06/22 06/06/22 06/06/22 01:52 02:07 02:15 Temperature 98.0 F Pulse Rate 86 84 78 Respiratory 16 22 18 Rate Blood Pressure 199/119 196/138 O2 Sat by Pulse 100 100 100 Oximetry 06/06/22 06/06/22 06/06/22 02:37 03:14 04:00 Temperature Pulse Rate 76 71 80 Respiratory 16 16 Rate Blood Pressure 204/104 211/109 217/108 O2 Sat by Pulse 100 100 Oximetry [facility] Patient is a 42-year-old male presenting with chief complaint of chest pain. Patient was seen here yesterday for similar symptoms, pain resolved here in the ER he was discharged home. Patient states that he was experiencing similar pain for several hours today as well as nausea and vomiting. On physical examination patient is hypertensive. Patient is given pain medication as well as 2 doses of IV hydralazine. EKG shows no ischemic changes. Laboratory showed potassium 3.1, will receive oral replacement. Creatinine 1.3 for a BUN 25, slightly elevated from baseline. Troponin 0.020. Urine showed trace positive for blood, patient was seen here yesterday which showed increased kidney atrophy and ischemia. Chest x-ray showed no acute processes. While after 2 doses of IV hydralazine patient remained hypertensive. Patient is started on Cardene drip and will be admitted. Case was discussed with Dr. Mckeon who accepted admission, CT angiography of the chest abdomen and pelvis is ordered per admitting physician's request. Patient is agreeable with this plan. Case discussed with my attending Dr. Villalobos. Disposition Clinical Impression: Hypertensive urgency Disposition: ADMITTED IP TO THIS [facility] Condition: Fair Time of Disposition: 04:04 Decision to Admit Reason: Admit from EC Decision Date: 06/06/22 Decision Time: 04:04
[2022-06-06 02:47] LABS: Basophils % (A) 0 %; Eosinophils # (A) 0.1 k/uL (0-0.7); Eosinophils % (A) 1 %; HCT 43.6 % (39.0-53.0); HGB 14.8 gm/dL (13.0-17.5); Lymphocytes % (A) 13 %; MCH 30.2 pg (25.0-35.0); MCHC 33.8 g/dL (31.0-37.0); MCV 89.2 fL (80.0-100.0); Mean Platelet Volume 8.3; Monocytes # (A) 0.4 k/uL (0-1.0); Monocytes % (A) 5 %; Neutrophils # (A) 6.2 k/uL (1.3-7.7); Neutrophils % (A) 80 %; Platelet Count 240 k/uL (150-450); RBC 4.89 m/uL (4.30-5.90); RDW 13.6 % (11.5-15.5); WBC 7.8 k/uL (3.8-10.6)
[2022-06-06 03:01] LABS: Albumin 5.1 g/dL (3.5-5.0); Calcium 10.2 mg/dL (8.4-10.2); Magnesium 1.7 mg/dL (1.6-2.3); Potassium 3.1 mmol/L (3.5-5.1); Total Bilirubin 0.6 mg/dL (0.2-1.3)
[2022-06-06 03:04] LABS: Appearance,Urine Clear (Clear); Bacteria,Urine Rare /hpf; Bilirubin,Urine Negative (Negative); Blood,Urine Small (Negative); Color,Urine Yellow; Glucose,Urine (UA) Negative (Negative); Ketones,Urine Negative (Negative); Leukocyte Esterase,Urine Negative (Negative); Mucus,Urine Rare /hpf; Nitrite,Urine Negative (Negative); Protein,Urine 3+ (Negative); RBC,Urine >182 /hpf (0-5); Urobilinogen,Urine <2.0 mg/dL (<2.0); WBC,Urine 4 /hpf (0-5)
[2022-06-06] MEDS ORDERED: POTASSIUM CHLORIDE ER 20 MEQ TAB.ER PO STA (03:05)
[2022-06-06 03:30] LABS: Partial Thromboplastin Time 27.4 sec (22.0-30.0); Prothrombin Time 10.4 sec (9.0-12.0)
--- NOTE | 2022-06-06 03:38 | XR ---
EXAMINATION TYPE: XR chest 2V DATE OF EXAM: 06/06/2022 COMPARISON: 05/23/2022 HISTORY: Chest pain TECHNIQUE: 2 views FINDINGS: Heart is normal. Lungs are clear of consolidation. There are no hilar masses. There is sten t in the descending thoracic aorta. There is slight blunting left costophrenic angle. There are chest leads. IMPRESSION: There is some mild pleural scarring at the lateral left lung base without change. Normal heart.
[2022-06-06] MEDS ORDERED: niCARdipine 20 MG in SODIUM CHLORIDE 0.9% 192 ML IV SCH (04:00)
[2022-06-06] MEDS ORDERED: NALOXONE 0.4 MG/ML 1 ML VIAL IV PRN (04:19)
--- NOTE | 2022-06-06 04:57 | P.HPIM ---
History of Present Illness H&P Date: 06/06/22 Chief Complaint: chest pain 42 year old male with history of AAA rupture and repair , uncontrolled hypertension , CAD , stroke patient coming in with recurrent severe crushing chest pain , left sided , non radiating, with pleuritic component , describes severe sharp 10/10 in severity. associated with repeated nausea and vomiting, found to have severely elevated blood pressure with systolic in the 220 range . patient had similar episode to a lesser extent yesterday for which he was evaluated , in the ED. his blood pressure and chest pain started improving after meds, imaging of the chest showed no acute pathology with stable dissection and AAA of the descending aort a. he was discharge form the ED yesterday after his blood pressure was controlled he denies any illicit drugs, he is currently in custodial. he denies any focal neuro deficits. workup showed [facility] , and mild hypokalemia ED gave the patient hydralazine with no much improvement , he was then started on nicardepene by the ED. patient claims he is compliant with his meds. Review of Systems Pertinent positives as noted in HPI. All other systems were reviewed and are ne gative Past Medical History Past Medical History: Chest Pain / Angina, CVA/TIA, Deep Vein Thrombosis (DVT), Eye Disorder, Hypertension, Pneumonia, Vascular Disorder Additional Past Medical History / Comment(s): 01/24/20 chest pain with aortic dissection/flown to [facility] where he had aortic surgery (temporary), had CVA with L eye blindness/blood clot in his arm and pneumonia/vented during that stay, 03/21/21 low spinal repair then on 03/25/21 had open aortic repair/developed post op leak and had some type of radiological procedure/vented/pneuemonia. sleep disorder, R eye muscle problems/poor vision, History of Any Multi-Drug Resistant Organisms: None Reported Past Surgical History: Appendectomy Additional Past Surgical History / Comment(s): Lap appy with umbilical hernia repair, 01/23/21 aortic repair, 03/21/21 lower spinal repair, 03/25/21 open a ortic repair then a leak with a radiologic procedure to correct, bronchoscopies x3 d/t fluid in lungs during aortic aneurysm. Past Anesthesia/Blood Transfusion Reactions: No Reported Reaction Past Psychological History: No Psychological Hx Reported Smoking Status: Current every day smoker Past Alcohol Use History: Rare Past Drug Use History: Marijuana - Past Family History Father Family Medical History: No Reported History, Hypertension Additional Family Medical History / Comment(s): Father long ago in an accident. Mother Family Medical History: Hypertension, Osteoarthritis (OA) Additional Family Medical History / Comment(s): Arrhythmia, lupus Medications and Allergies Home Medications Medication Instructions Recorded Confirmed Type Aspirin 325 mg PO DAILY 05/12/21 05/23/22 History Ergocalciferol [Vitamin D2 (1250 1,250 mcg PO Q30D 05/12/21 05/23/22 History Mcg = 31357 Iu)] HYDROcodone/APAP 7.5-325MG [[place] 1 tab PO DIRECTED PRN 05/12/21 05/23/22 History 7.5-325] Ibuprofen [Motrin] 800 mg PO QID PRN 05/12/21 05/23/22 History amLODIPine [Norvasc] 10 mg PO DAILY 05/12/21 05/23/22 History hydrALAZINE HCL [Apresoline] 100 mg PO TID 05/12/21 05/23/22 History Metoprolol Succinate (ER) [Toprol 50 mg PO BID 05/23/22 05/23/22 History XL] Sertraline [Zoloft] 25 mg PO DAILY 05/23/22 05/23/22 History Spironolactone-Hctz 25-25Mg 1 tab PO DAILY 05/23/22 05/23/22 History [Aldactazide 25-25 MG] Nicotine 14Mg/24Hr Patch [Habitrol] 1 patch TRANSDERM DAILY 30 Days 05/24/22 Rx #30 patch Allergies Allergy/AdvReac Type Severity Reaction Status Date / Time JASMYN Inhibitors Allergy per Verified 06/06/22 01:56 paperwork from [facility] egg Allergy Rash/Hives Verified 06/06/22 01:56 wool Allergy Rash/Hives Verified 06/06/22 01:56 fentanyl AdvReac Unknown Verified 06/06/22 01:56 quetiapine [From Seroquel] AdvReac Hallucinati Verified 06/06/22 01:56 ons Physical Exam Vitals: Vital Signs Temp Pulse Resp BP Pulse Ox 06/06/22 04:36 78 16 177/83 99 06/06/22 04:00 80 16 217/108 100 06/06/22 03:14 71 16 211/109 100 06/06/22 02:37 76 204/104 06/06/22 02:15 78 18 196/138 100 06/06/22 02:07 84 22 199/119 100 06/06/22 01:52 98.0 F 86 16 100 Intake and Output 06/05/22 06/05/22 06/06/22 14:59 22:59 06:59 Other: Weight 72.575 kg [employer] at bedside Constitutional: very uncomfortable looks in a lot of pain, cooperative Eyes: Anicteric sclerae, moist conjunctiva, Pupils equal round reactive to light left eye pupil sluggish ENMT: NC/AT Oropharynx clear, no erythema, or exudates Neck: Supple, no masses, or JVD left carotid bruits positive No thyromegaly Lungs: Clear to auscultation Clear to percussion Normal respiratory effort, no accessory muscle use Cardiovascular: Heart regular in rate and rhythm, No murmurs, gallops, or rubs No peripheral edema Abdominal: Soft Nontender, no guarding, rebound or rigidity Abdomen moving with respiration Normoactive bowel sounds No hepatomegaly, No splenomegaly No palpable mass No abdominal wall hernia noted Skin: Normal temperature, tone, texture, turgor Extremities: No digital cyanosis No clubbing Pedal pulses intact and symmetrical Radial pulses intact and symmetrical No calf tenderness Psychiatric: Alert and oriented to person, place and time Appropriate affect fair judgement Neuro Muscles Strength 5/5 in all 4 extremities Sensation to light touch grossly present throughout Cranial nerves II-XII grossly intact Lymphatics: no palpable cervical or supraclavicular lymph nodes Results CBC & Chem 7: 06/06/22 02:33 06/06/22 02:33 Labs: Abnormal Lab Results - Last 24 Hours (Table) 06/06/22 06/06/22 Range/Units 02:33 02:33 Potassium 3.1 L (3.5-5.1) mmol/L Chloride 97 L (98-107) mmol/L BUN 25 H (9-20) mg/dL Creatinine 1.34 H (0.66-1.25) mg/dL Glucose 115 H (74-99) mg/dL Total Protein 9.0 H (6.3-8.2) g/dL Albumin 5.1 H (3.5-5.0) g/dL Urine Protein 3+ H (Negative) Urine Blood Small H (Negative) Urine RBC >182 H (0-5) /hpf Urine Bacteria Rare H (None) /hpf Urine Mucus Rare H (None) /hpf Assessment and Plan Assessment: hypertensive emergency [facility] h/o AAA rupture / dissection s/p repari supportive care initiated on cardene drip per ED to control blood pressure left carotid bruit rule out new dissection check CTA chest and abd rule out worsening dissection due to severely elevated blood pressure systolic >228 monitor vital signs neuro checks IVF hydration with normal saline cardiology evaluation residential monitor resume hydralazine, metoprolol , amlodipine [facility] mild hypokalemia monitor urine out put and renal function level IVF hydration with normal saline replace K full code DVT PPX mechanical , due to uncontrolled hypertension , with extremly elevated SBP >220
[2022-06-06] MEDS: SODIUM CHLORIDE 0.9% 1,000 ML IV SCH ×2 (05:19→18:56)
--- NOTE | 2022-06-06 05:19 | CT ---
EXAMINATION TYPE: CT angio thor/abd pel aorta DATE OF EXAM: 06/06/2022 COMPARISON: Yesterday HISTORY: Chest pain CT DLP: 1064.7 mGycm Automated exposure control for dose reduction was used. CONTRAST: Performed with IV Contrast, patient injected with 100ml mL of Isovue 370. Images obtained from the thoracic inlet to the floor the pelvis with IV contrast. There are Three-D p ostprocessed images. There is an endograft at the aortic arch extending into the descending aorta. There is aortic dissect ion involving the descending aorta extending to the diaphragm. There is arterial flow in the superior mesenteric artery and the celiac artery. There is arterial flow in the right renal artery and very l ittle contrast opacification of the left renal artery. Left kidney is small and hypovascular. There i s 4.5 cm aneurysm of the lower abdominal aorta with wall thickening and apparent circumferential thro mbus. There is aneurysm extending into the common iliac arteries which measure up to 1.9 cm. There is arterial flow in the internal and external iliac arteries and femoral arteries. No evidence of any contrast extravasation. Liver and spleen are intact. No pancreatic mass. The stomach is intact. No mesenteric edema. No ascites or free air. No bowel obstruction. No filling defects seen in the pulmonary arteries. Heart size is normal. No pericardial effusion. IMPRESSION: There is dissection of the descending thoracic aorta without change in appearance compared to yesterd ay. Endograft noted at the proximal descending thoracic aorta. Mild aneurysm of the lower abdominal aorta extending into the iliac arteries without change. Chronic ischemia of the left kidney which is small and hypovascular and not changed compared to yeste rday.
[2022-06-06] MEDS: MORPHINE SULFATE 4 MG/ML SYRINGE IVP PRN ×2 (06:43→19:55)
[2022-06-06] MEDS ORDERED: METOPROLOL SUCCINATE (ER) 50 MG TAB.ER.24H PO SCH ×2 (07:30→09:00)
--- NOTE | 2022-06-06 08:28 | P.CNPUL ---
History of Present Illness Consult date: 06/06/22 Requesting physician: Jenelle Mckeon Chief complaint: Chest pain, hypertensive urgency. History of present illness: Pulmonary consult dated 06/06/2022. 42-year-old male brought into the emergency room, from alf. The patient apparently presented with chest pain. The patient was recently seen in the emergency room, for hypertensive urgency, discharge, and then came back in, chest pain, and an elevated blood pressure. It was initially thought to have a dissection of the aorta. He does apparently have a history of abdominal aortic aneurysm with previous repair. Patient was evaluated previously, and discharged home. He may not be getting his blood pressure medications at time of fashion at the alf, which is why he came back in with chest pain and elevated blood pressure. He denied any shortness of breath. There is no fever or chills. He should be on amlodipine, hydralazine, metoprolol, and Aldactazide for his blood pressure. It's unclear whether or not he was getting these medications in a timely fashion, at the proper doses according to the ER physician. Currently, he is seen in room 23 in the emergency department. His blood pressure was 133/80. He was on room air. He is getting saline at 75 mL an hour he is on nicardipine at 2.5 mg an hour. I asked the ER physician to resume his normal oral medications. I think the patient could be downgraded to the cardiac floor, once he is off nicardipine. Chest x-ray showed some mild pleural scarring at the left lung base, which was unchanged. CT of the chest, showed dissection of the ascending thoracic aorta without change in appearance compared to previous CT that was done the day before. 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 Review of Systems REVIEW OF SYSTEMS: CONSTITUTIONAL: [Negative.] NEUROLOGIC: [ Negative.] HEENT: [ Negative.] CARDIAC: Chest and back pain. PULMONARY: [Negative.] GI: [Negative.] : [Negative.] RHEUMATOLOGIC: [ Negative.] IMMUNOLOGIC: [ Negative.] ENDOCRINE: [Negative. ] DERMATOLOGIC: [Negative.] Past Medical History Past Medical History: Chest Pain / Angina, CVA/TIA, Deep Vein Thrombosis (DVT), Eye Disorder, Hypertension, Pneumonia, Vascular Disorder Additional Past Medical History / Comment(s): 01/24/20 chest pain with aortic dissection/flown to [facility] where he had aortic surgery (temporary), had CVA with L eye blindness/blood clot in his arm and pneumonia/vented during that stay, 03/21/21 low spinal repair then on 03/25/21 had open aortic repair/developed post op leak and had some type of radiological procedure/vented/pneuemonia. sleep disorder, R eye muscle problems/poor vision, History of Any Multi-Drug Resistant Organisms: None Reported Past Surgical History: Appendectomy Additional Past Surgical History / Comment(s): Lap appy with umbilical hernia repair, 01/23/21 aortic repair, 03/21/21 lower spinal repair, 03/25/21 open aortic repair then a leak with a radiologic procedure to correct, bronchoscopies x3 d/t fluid in lungs during aortic aneurysm. Past Anesthesia/Blood Transfusion Reactions: No Reported Reaction Past Psychological History: No Psychological Hx Reported Smoking Status: Current every day smoker Past Alcohol Use History: Rare Past Drug Use History: Marijuana - Past Family History Father Family Medical History: No Reported History, Hypertension Additional Family Medical History / Comment(s): Father long ago in an accident. Mother Family Medical History: Hypertension, Osteoarthritis (OA) Additional Family Medical History / Comment(s): Arrhythmia, lupus Medications and Allergies Home Medications Medication Instructions Recorded Confirmed Type Aspirin 325 mg PO DAILY 05/12/21 06/06/22 History Ergocalciferol [Vitamin D2 (1250 1,250 mcg PO Q30D 05/12/21 06/06/22 History Mcg = 83225 Iu)] HYDROcodone/APAP 7.5-325MG [[place] 1 tab PO DIRECTED PRN 05/12/21 06/06/22 History 7.5-325] Ibuprofen [Motrin] 800 mg PO QID PRN 05/12/21 06/06/22 History amLODIPine [Norvasc] 10 mg PO DAILY 05/12/21 06/06/22 History hydrALAZINE HCL [Apresoline] 100 mg PO TID 05/12/21 06/06/22 History Metoprolol Succinate (ER) [Toprol 50 mg PO BID 05/23/22 06/06/22 History XL] Sertraline [Zoloft] 25 mg PO DAILY 05/23/22 06/06/22 History Spironolactone-Hctz 25-25Mg 1 tab PO DAILY 05/23/22 06/06/22 History [Aldactazide 25-25 MG] Nicotine 14Mg/24Hr Patch [Habitrol] 1 patch TRANSDERM DAILY 30 Days 05/24/22 06/06/22 Rx #30 patch Allergies Allergy/AdvReac Type Severity Reaction Status Date / Time JASMYN Inhibitors Allergy per Verified 06/06/22 01:56 paperwork from [facility] egg Allergy Rash/Hives Verified 06/06/22 01:56 wool Allergy Rash/Hives Verified 06/06/22 01:56 fentanyl AdvReac Unknown Verified 06/06/22 01:56 quetiapine [From Seroquel] AdvReac Hallucinati Verified 06/06/22 01:56 ons Physical Exam Osteopathic Statement: *. No significant issues noted on an osteopathic structural exam other than those noted in the History and Physical/Consult. Vitals: Vital Signs Temp Pulse Resp BP Pulse Ox 06/06/22 07:51 81 16 130/82 93 L 06/06/22 07:01 133/80 06/06/22 06:42 98 18 149/92 100 06/06/22 06:14 78 18 143/56 100 06/06/22 05:41 84 18 137/76 100 06/06/22 04:36 78 16 177/83 99 06/06/22 04:00 80 16 217/108 100 06/06/22 03:14 71 16 211/109 100 06/06/22 02:37 76 204/104 06/06/22 02:15 78 18 196/138 100 06/06/22 02:07 84 22 199/119 100 06/06/22 01:52 98.0 F 86 16 100 Intake and Output 06/05/22 06/06/22 06/06/22 22:59 06:59 14:59 Intake Total 17.5 Balance 17.5 Intake: Intake, IV Titration 17.5 Amount niCARdipine 20 mg In 17.5 Sodium Chloride 0.9% 192 ml @ 5 MG/HR 50 mls/hr IV .Q4H [facility] Rx#:[id number] Other: Weight 72.575 kg No acute distress, oriented 3. Currently on room air. No respiratory distress. HEENT examination is grossly unremarkable. Neck supple. Full range of motion. No adenopathy thyromegaly or neck vein distention. Cardiovascular examination reveals regular rhythm rate. S1-S2 normal. No S3 or S4. No discernible murmur noted. Heart rate 81 bpm. Lungs reveal clear breath sounds. Breath sounds are equal bilaterally. No adventitious lung sounds including wheezes rhonchi or crackles. Room air saturation 100%. Abdomen soft bowel sounds are heard. No masses or tenderness. Extremities are intact. No cyanosis clubbing or edema. Skin is without rash or lesion. Neurologic examination is brief but nonfocal. Results - Laboratory Findings CBC and BMP: 06/06/22 02:33 06/06/22 02:33 PT/INR, D-dimer PT 10.4 sec (9.0-12.0) 06/06/22 02:33 INR 1.0 (<1.2) 06/06/22 02:33 Abnormal lab findings: Abnormal Labs 06/06/22 06/06/22 02:33 02:33 Potassium 3.1 L Chloride 97 L BUN 25 H Creatinine 1.34 H Glucose 115 H Total Protein 9.0 H Albumin 5.1 H Urine Protein 3+ H Urine Blood Small H Urine RBC >182 H Urine Bacteria Rare H Urine Mucus Rare H - Diagnostic Findings Chest x-ray: image reviewed CT scan - chest: image reviewed Assessment and Plan Assessment: Hypertensive urgency/emergency, currently on a nicardipine drip. History of hypertension. History of CVA. History of DVT. History of pneumonia. Impaired vision, left eye. Plan: Plan dated 06/06/2022. The patient is seen in the emergency room, room 23. The patient's getting saline at 75 mL an hour, and nicardipine at 2.5 mg an hour. I asked the ER physician, to resume the patient's oral medications including amlodipine, hydralazine, metoprolol, and Aldactazide. Once he is off the nicardipine, the p atient can be transferred to the stepdown unit, 3 S. Additional recommendations and suggestions are forthcoming. No additional recommendations are made. We will continue to follow. Computed tomography scan is unchanged. Time with Patient: Greater than 30
[2022-06-06] MEDS: hydrALAZINE HCL 50 MG TAB PO SCH ×3 (08:54→19:55)
[2022-06-06] MEDS: amLODIPine 10 MG TAB PO SCH (08:54)
[2022-06-06] MEDS ORDERED: hydrALAZINE HCL 50 MG TAB PO SCH (09:00)
--- NOTE | 2022-06-06 10:26 | CONS ---
CONSULTATION HISTORY OF PRESENT ILLNESS: This is a 42-year-old gentleman, who is incarcerated, has history of accelerated hypertension with a dissection of ascending aorta with a stenting of ascending aorta all the way into the descending aorta, which was performed several years ago at [facility], details of which are not available at this time. However, this patient was here yesterday and again today. His blood pressure has been elevated over 200 and systolic and over 100 diastolic. He has an Endo-graft involving the aortic arch extending into the descending aorta. There is a dissection in the descending aorta, but that appears to be stable. There is flow in the celiac and mesenteric artery as well as the right renal artery and also to some extent left renal artery. There is an aneurysm of the lower abdominal aorta of about 4.5 cm without significant change. The findings on the CT scan today are not significantly different from the one from yesterday or 2 weeks ago. The patient had elevated blood pressure. He was placed on nicardipine drip and hydralazine, beta manuel, and his pressure now is about 128/78. He is resting comfortably, has no chest pain, shortness of breath, or palpitation. His EKG revealed a sinus mechanism without any significant ST-T changes. There is some artifact. His troponin levels are normal. He is resting comfortably without symptoms. Please refer to the detailed consultation by Dr. Flores and also echocardiogram information in the last 2 to 3 weeks. PHYSICAL EXAMINATION: VITAL SIGNS: Blood pressure is 125/80, pulse rate is 70 per minute. HEENT: Unremarkable. Fundus was not examined by me. NECK: Supple. No JVD. I do not hear a carotid bruit. HEART: Reveals S1, S2. There is no significant murmur audible. LUNGS: Reveal bilateral air entry. ABDOMEN: Soft, nontender. EXTREMITIES: Lower extremities reveal diminished pulses. No edema. Central nervous system is normal. IMPRESSION: 1. History of aortic dissection, status post Endo-grafting performed a few years ago at [facility], details of which are not available. 2. Excellent hypertension, now controlled. 3. History of atypical chest pain, which is not an issue at this time. Apparently, his ascending aortic intervention was probably performed in March 2021, details are not available at this time. RECOMMENDATIONS: I am recommending that we add labetalol and also change the metoprolol to tartrate 50 mg t.i.d. and wean off the nicardipine. Check a CBC, BMP tomorrow. Since he received multiple contrast administrations, I am recommending hydration till tomorrow at 75 cc/hour normal saline and recheck CBC and BMP in the morning. I discussed my thoughts in detail with the patient. Thank you very much for the consult. JOHAN / TRACEY: [id number] /
[2022-06-06] MEDS: LABETALOL 200 MG TAB PO SCH ×2 (11:12→23:03)
[2022-06-06] MEDS: SPIRONOLACTONE-HCTZ 25-25MG 1 EACH TAB PO SCH (11:12)
--- NOTE | 2022-06-06 13:38 | P.PN ---
Progress Note - Text Progress Note Date: 06/06/22 Hospitalist Interval Note Patient seen and examined at bedside. Vital signs reviewed General: non toxic, no distress, appears at stated age Derm: warm, dry Head: atraumatic, normocephalic, symmetric Eyes: EOMI, no lid lag, anicteric sclera Mouth: no lip lesion, mucus membranes moist Cardiovascular: S1S2 reg, no murmur, positive posterior tibial pulse bilateral, Lungs: CTA bilateral, no rhonchi, no rales , no accessory muscle use Abdominal: soft, tenderness to palpation in the left upper quadrant, no guarding, no appreciable organomegaly Ext: no gross muscle atrophy, no edema, no contractures Neuro: CN II-XI grossly intact, no focal neuro deficits Psych: Alert, oriented, appropriate affect Assessment/Plan: Hypertensive emergency History of AAA rupture/dissection status post repair Acute kidney injury Hypokalemia - Was initially on the nicardipine gtt - Patient evaluated by nanotechnician and cardiology - Started on hydralazine, labetalol, metoprolol, spironolactone, hydrochlorothiazide - Would consider discontinuing one of the beta blockers if cardiology agrees - Potassium replete and monitor - Continue to monitor urine output and renal function This is an update note for patient. There is no charge associated with this note.
[2022-06-06] MEDS: METOPROLOL TARTRATE 50 MG TAB PO SCH ×2 (16:39→19:55)
[2022-06-07] MEDS: MORPHINE SULFATE 4 MG/ML SYRINGE IVP PRN ×4 (00:53→22:55)
[2022-06-07] MEDS: METOPROLOL TARTRATE 50 MG TAB PO SCH ×3 (08:00→22:00)
[2022-06-07] MEDS: SPIRONOLACTONE-HCTZ 25-25MG 1 EACH TAB PO SCH (08:00)
[2022-06-07] MEDS: hydrALAZINE HCL 50 MG TAB PO SCH ×3 (08:00→22:00)
[2022-06-07] MEDS: amLODIPine 10 MG TAB PO SCH (08:00)
[2022-06-07] MEDS: LABETALOL 200 MG TAB PO SCH ×2 (08:00→20:25)
[2022-06-07] MEDS: SODIUM CHLORIDE 0.9% 1,000 ML IV SCH ×2 (09:02→22:47)
[2022-06-07 09:50] LABS: Basophils % (A) 1 %; Eosinophils # (A) 0.2 k/uL (0-0.7); Eosinophils % (A) 3 %; HCT 35.8 % (39.0-53.0); HGB 12.2 gm/dL (13.0-17.5); Lymphocytes % (A) 21 %; MCH 30.7 pg (25.0-35.0); MCV 90.4 fL (80.0-100.0); Mean Platelet Volume 8.7; Monocytes # (A) 0.4 k/uL (0-1.0); Monocytes % (A) 10 %; Neutrophils # (A) 2.9 k/uL (1.3-7.7); Neutrophils % (A) 63 %; Platelet Count 183 k/uL (150-450); RBC 3.96 m/uL (4.30-5.90); RDW 13.9 % (11.5-15.5); WBC 4.6 k/uL (3.8-10.6)
[2022-06-07 10:14] LABS: Calcium 8.6 mg/dL (8.4-10.2)
[2022-06-07] MEDS: POTASSIUM CHLORIDE ER 20 MEQ TAB.ER PO SCH ×5 (11:47→17:08)
--- NOTE | 2022-06-07 11:55 | P.PN ---
Subjective Progress Note Date: 06/07/22 Principal diagnosis: Elevated BP Patient was having headaches and some chest tightness this morning. No fevers or chills. No nausea or vomiting. Objective - Vital Signs Vital signs: Vital Signs Temp 98.3 F 06/07/22 11:34 Pulse 65 06/07/22 11:34 Resp 20 06/07/22 11:34 BP 154/77 06/07/22 11:34 Pulse Ox 100 06/07/22 11:34 FiO2 Intake & Output 06/06/22 06/07/22 06/07/22 18:59 06:59 18:59 Intake Total 111.25 658 Balance 111.25 658 Intake: Intake, IV Titration 111.25 Amount niCARdipine 20 mg In 111.25 Sodium Chloride 0.9% 192 ml @ 5 MG/HR 50 mls/hr IV .Q4H [facility] Rx#:[id number] Oral 658 Other: Voiding Method Urinal Urinal # Voids 1 - Exam Constitutional: No acute distress, conversant, pleasant Eyes:Anicteric sclerae, moist conjunctiva, no lid-lag, PERRLA, ENMT: Oropharynx clear, no erythema, exudates Neck: Supple, FROM, no masses, or JVD, No carotid bruits, No thyromegaly Lungs: Clear to auscultation, Clear to percussion, Normal respiratory effort, no accessory muscle use Cardiovascular: Heart regular in rate and rhythm, No murmurs, gallops, or rubs, No peripheral edema Abdominal: Soft, Nontender, no guarding, rebound or rigidity, Normoactive bowel sounds, No hepatomegaly, No splenomegaly, No palpable mass Skin: Normal temperature, tone, texture, turgor, no induration, No subcutaneous nodules, No rash, lesions, No ulcers Extremities: No digital cyanosis, No clubbing, Pedal pulses intact and symmetrical, Radial pulses intact and symmetrical, No calf tenderness Psychiatric: Alert and oriented to person, place and time, appropriate affect, intact judgement Neuro: Muscles Strength 5/5 in all 4 extremities, Sensation to light touch grossly present throughout, Cranial nerves II-XII grossly intact, no focal sensory deficits - Labs CBC & Chem 7: 06/07/22 09:25 06/07/22 09:25 Labs: Abnormal Lab Results - Last 24 Hours (Table) 06/07/22 06/07/22 Range/Units 09:25 09:25 RBC 3.96 L (4.30-5.90) m/uL Hgb 12.2 L (13.0-17.5) gm/dL Hct 35.8 L (39.0-53.0) % Sodium 134 L (137-145) mmol/L Potassium 3.0 L (3.5-5.1) mmol/L BUN 21 H (9-20) mg/dL Creatinine 1.31 H (0.66-1.25) mg/dL Glucose 110 H (74-99) mg/dL Assessment and Plan Plan: Hypertensive emergency Blood pressure stabilized Currently off cardene drip Started on labetalol, resume resume hydralazine, metoprolol , amlodipine, spironolactone/HCTZ Cardiology service following [facility] IVF hydration with normal saline Follow cr in am H/o AAA rupture / dissection s/p repair CTA chest and abd showing stable dissection full code DVT PPX mechanical Dispo: Likely tomorrow back to [facility]
--- NOTE | 2022-06-07 16:16 | P.PN ---
Subjective Progress Note Date: 06/07/22 Principal diagnosis: Hypertensive urgency, chest pain 42-year-old male brought into the emergency room, from [facility]. The patient apparently presented with chest pain. The patient was recently seen in the emergency room, for hypertensive urgency, discharge, and then came back in, chest pain, and an elevated blood pressure. It was initially thought to have a dissection of the aorta. He does apparently have a history of abdominal aortic aneurysm with previous repair. Patient was evaluated previously, and discharged home. He may not be getting his blood pressure medications at time of fashion at the [facility], which is why he came back in with chest pain and elevated blood pr essure. He denied any shortness of breath. There is no fever or chills. He should be on amlodipine, hydralazine, metoprolol, and Aldactazide for his blood pressure. It's unclear whether or not he was getting these medications in a timely fashion, at the proper doses according to the ER physician. Currently, he is seen in room 23 in the emergency department. His blood pressure was 133/80. He was on room air. He is getting saline at 75 mL an hour he is on nicardipine at 2.5 mg an hour. I asked the ER physician to resume his normal oral medications. I think the patient could be downgraded to the cardiac floor, once he is off nicardipine. Chest x-ray showed some mild pleural scarring at the left lung base, which was unchanged. CT of the chest, showed dissection of the ascending thoracic aorta without change in appearance compared to previous CT that was done the day before. 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 Patient is being reevaluated today on 06/07/2022 on the cardiac stepdown unit. Patient's hypertension is much better controlled now that he is receiving all of his by mouth antihypertensives. He has not required any intravenous antihype rtensive infusions overnight. No intravenous fluids infusing. All vital signs remain stable on room air. Patient denies any further chest pain, palpitations, shortness of breath, lightheadedness. No new chest x-ray to review today. CBC from today shows a WBC count of 4.6, hemoglobin 12.2, hematocrit 35.8, platelets 183,000. There was a 2 g drop in his hemoglobin, however, no overt signs of bl eeding. Thoracic CTA from yesterday showed a stable dissection, intact endograft, and no extravasation of contrast. He did receive some normal saline boluses yesterday in the ER. BMP stable with a sodium of 134, potassium 3, chloride 101, serum CO2 29, BUN 21, creatinine 1.3, glucose 110. Overall the patient is stable. Objective - Vital Signs Vital signs: Vital Signs Temp 98.3 F 06/07/22 11:34 Pulse 65 06/07/22 11:34 Resp 20 06/07/22 14:00 BP 154/77 06/07/22 11:34 Pulse Ox 100 06/07/22 11:34 FiO2 Intake & Output 06/06/22 06/07/22 06/07/22 18:59 06:59 18:59 Intake Total 111.25 658 Balance 111.25 658 Intake: Intake, IV Titration 111.25 Amount niCARdipine 20 mg In 111.25 Sodium Chloride 0.9% 192 ml @ 5 MG/HR 50 mls/hr IV .Q4H EDGAR Rx#:[id number] Oral 658 Other: Voiding Method Urinal Urinal # Voids 1 - Exam No acute distress, oriented 3. Currently on room air. No respiratory distress. HEENT examination is grossly unremarkable. Neck supple. Full range of motion. No adenopathy thyromegaly or neck vein distention. Cardiovascular examination reveals regular rhythm rate. S1-S2 normal. No S3 or S4. No discernible murmur noted. Heart rate 65 bpm. Lungs reveal clear breath sounds. Breath sounds are equal bilaterally. No adventitious lung sounds including wheezes rhonchi or crackles. Room air saturation 100%. Abdomen soft bowel sounds are heard. No masses or tenderness. Extremities are intact. No cyanosis clubbing or edema. Skin is without rash or lesion. Neurologic examination is brief but nonfocal. - Labs CBC & Chem 7: 06/07/22 09:25 06/07/22 09:25 Labs: Abnormal Lab Results - Last 24 Hours (Table) 06/07/22 06/07/22 Range/Units 09:25 09:25 RBC 3.96 L (4.30-5.90) m/uL Hgb 12.2 L (13.0-17.5) gm/dL Hct 35.8 L (39.0-53.0) % Sodium 134 L (137-145) mmol/L Potassium 3.0 L (3.5-5.1) mmol/L BUN 21 H (9-20) mg/dL Creatinine 1.31 H (0.66-1.25) mg/dL Glucose 110 H (74-99) mg/dL Assessment and Plan Assessment: Hypertensive urgency/emergency, currently controlled on by mouth antihypertensives History of hypertension. History of CVA. History of DVT. History of pneumonia. Impaired vision, left eye. Plan: Plan: Patient's labs and medications reviewed Continue oral amlodipine, hydralazine, metoprolol, labetalol, Aldactazide Replace hypokalemia with potassium protocol From a pulmonary standpoint patient is cleared for discharge. I have personally seen and examined the patient, performed the documentation and the assessment and plan as written. Number of minutes spent on the visit: [ 10].
[2022-06-07] MEDS ORDERED: amLODIPine 5 MG TAB PO STA (18:12)
[2022-06-07] MEDS ORDERED: Potassium Replacement Protocol 1 EACH MISC MISCELLANE PRN (18:19)
[2022-06-07 19:26] LABS: Calcium 8.8 mg/dL (8.4-10.2); Potassium 3.9 mmol/L (3.5-5.1)
[2022-06-07] MEDS: amLODIPine 5 MG TAB PO SCH (22:00)
--- NOTE | 2022-06-08 02:04 | PN ---
PROGRESS NOTE SUBJECTIVE: Mr. Curry is in sinus rhythm, resting comfortably. He is slightly hypokalemic. Blood pressure trend has been good. Advised to continue current medical regimen, increase activity. OBJECTIVE: NECK: Revealed no JVD. HEART: S1, S2 heard normally. Short systolic murmur noted. LUNGS: Revealed decent air entry. ABDOMEN: Unchanged. LOWER EXTREMITIES: Unchanged. PLAN: Supplement potassium. Increase activity. Same medical regimen. The patient can be discharged this evening after supplementing the potassium. MMODL / IJN: [id number] /
[2022-06-08] MEDS: MORPHINE SULFATE 4 MG/ML SYRINGE IVP PRN (04:05)
[2022-06-08 04:15] VITALS: RESP 18
[2022-06-08 08:43] VITALS: TEMP 97.8
[2022-06-08 08:44] LABS: Calcium 8.4 mg/dL (8.4-10.2); Magnesium 1.8 mg/dL (1.6-2.3); Potassium 3.6 mmol/L (3.5-5.1)
[2022-06-08] MEDS: amLODIPine 5 MG TAB PO SCH (08:46)
[2022-06-08] MEDS: METOPROLOL TARTRATE 50 MG TAB PO SCH (08:46)
[2022-06-08] MEDS: hydrALAZINE HCL 50 MG TAB PO SCH (08:46)
[2022-06-08] MEDS: LABETALOL 200 MG TAB PO SCH (08:46)
[2022-06-08] MEDS: SPIRONOLACTONE-HCTZ 25-25MG 1 EACH TAB PO SCH (08:46)
[2022-06-08] MEDS ORDERED: POTASSIUM CHLORIDE ER 20 MEQ TAB.ER PO SCH (10:00)
[2022-06-08] MEDS ORDERED: HYDROcodone/APAP 7.5-325MG 1 EACH TAB PO ONE (10:04)
[2022-06-08] MEDS: SODIUM CHLORIDE 0.9% 1,000 ML IV SCH (11:05)
[2022-06-08 12:12] VITALS: BP 130/80; PULSE 87
--- NOTE | 2022-06-08 12:21 | P.DS ---
Providers Date of admission: 06/06/22 04:20 Expected date of discharge: 06/08/22 Attending physician: Jenelle Mckeon MD Consults: 06/06/22 04:19 Consult Physician Urgent Consulting Provider: [facility] Consult Reason/Comments: hypertensive urgency, chest pain Do you want consulting provider notified?: Yes Primary care physician: Stated None Hospital Course: 42 year old male with history of AAA rupture and repair, uncontrolled hypertension, CAD, stroke presented to the ER due to recurrent severe crushing chest pain , left sided , non radiating, with pleuritic component , describes severe sharp 10/10 in severity. associated with repeated nausea and vomiting, found to have severely elevated blood pressure with systolic in the 220 range . patient had similar episode to a lesser extent the day prior to admission for which he was evaluated, in the ED. At that point his blood pressure and chest pain started improving after meds, imaging of the chest showed no acute pathology with stable dissection and AAA of the descending aorta. He was subsequently discharge form the ED after his blood pressure was controlled. He denies any illicit drugs, he is currently in snf. he denies any focal neuro deficits. patient claims he is compliant with his meds. Workup in the Er showed CAMI , and mild hypokalemia. ED gave the patient hydralazine with no much improvement , he was then started on nicardipine gtt by the ED, patient was subsequently admitted for further evaluation and management. For the headache he was hydrated with IV fluids, creatinine remained elevated and did not significantly improve with that. It remained around 1.4. Kidney function needs to be checked outpatient. After blood pressure was controlled the gtt was discontinued. He was seen by strategy manager service, was started on labetalol, resumed on hydralazine, metoprolol , amlodipine, spironolactone/HCTZ. He is currently doing well, without any symptoms. He will be discharged back to snf in a stable condition. Patient was seen and examined on the day of discharge 06/08 Time for discharge 35 min Patient Condition at Discharge: Fair Plan - Discharge Summary Discharge Rx Participant: No New Discharge Prescriptions: New Metoprolol Tartrate [Lopressor] 50 mg PO TID 30 Days #90 tab Labetalol [Trandate] 200 mg PO BID 30 Days #60 tab Continue Ibuprofen [Motrin] 800 mg PO QID PRN PRN Reason: Pain hydrALAZINE HCL [Apresoline] 100 mg PO TID Sertraline [Zoloft] 25 mg PO DAILY amLODIPine [Norvasc] 10 mg PO DAILY HYDROcodone/APAP 7.5-325MG [[place] 7.5-325] 1 tab PO DIRECTED PRN PRN Reason: Pain Aspirin 325 mg PO DAILY Ergocalciferol [Vitamin D2 (1250 Mcg = 18551 Iu)] 1,250 mcg PO Q30D Spironolactone-Hctz 25-25Mg [Aldactazide 25-25 MG] 1 tab PO DAILY Discontinued Metoprolol Succinate (ER) [Toprol XL] 50 mg PO BID Nicotine 14Mg/24Hr Patch [Habitrol] 1 patch TRANSDERM DAILY 30 Days #30 patch Discharge Medication List Aspirin 325 mg PO DAILY 05/12/21 [History] Ergocalciferol [Vitamin D2 (1250 Mcg = 64155 Iu)] 1,250 mcg PO Q30D 05/12/21 [History] HYDROcodone/APAP 7.5-325MG [[place] 7.5-325] 1 tab PO DIRECTED PRN 05/12/21 [History] Ibuprofen [Motrin] 800 mg PO QID PRN 05/12/21 [History] amLODIPine [Norvasc] 10 mg PO DAILY 05/12/21 [History] hydrALAZINE HCL [Apresoline] 100 mg PO TID 05/12/21 [History] Sertraline [Zoloft] 25 mg PO DAILY 05/23/22 [History] Spironolactone-Hctz 25-25Mg [Aldactazide 25-25 MG] 1 tab PO DAILY 05/23/22 [History] Labetalol [Trandate] 200 mg PO BID 30 Days #60 tab 06/08/22 [Rx] Metoprolol Tartrate [Lopressor] 50 mg PO TID 30 Days #90 tab 06/08/22 [Rx] Follow up Appointment(s)/Referral(s): Ted Mcneal MD [STAFF PHYSICIAN] - 2 Weeks (Patient needs to follow up with Dr. Mcneal in 2-3 weeks. Appoitment not made due to patient being incarcirated. Josephine RN notified of need for appoitment. )
--- NOTE | 2022-06-08 19:39 | PN ---
PROGRESS NOTE SUBJECTIVE: Mr. Curry is doing well. His blood pressure is well controlled on the current regimen. No symptoms. Potassium that was low has been corrected. It is 3.9 today. Advised to continue current medications, increase activity. Possible discharge today and follow up with his primary doctor and also with Dr. Mcneal in the next 2 to 3 weeks. OBJECTIVE: HEART: S1 and S2 heard normally. Short systolic murmur. LUNGS: Clear. ABDOMEN: Unchanged. LOWER EXTREMITIES: Unchanged. VITAL SIGNS: BP control is optimal. MMODL / IJN: [id number] /
== END 2022-06-08 14:11 | DRG 304 ==
LOC: EC 01:50 → 3SCARD 04:20 → 2SICU 05:16 → 3SCARD 07:21
PROVIDERS: ADMIT Internal Medicine; ATTEND Internal Medicine
DX: I16.1 Hypertensive emergency (principal); I71.010 Dissection of ascending aorta; N17.9 Acute kidney failure, unspecified; E87.6 Hypokalemia; Z28.310 Unvaccinated for COVID-19; I10 Essential (primary) hypertension; I69.398 Other sequelae of cerebral infarction; H54.62 Unqualified visual loss, left eye, normal vision right eye; I25.10 Atherosclerotic heart disease of native coronary artery without angina pectoris; G47.9 Sleep disorder, unspecified; F17.200 Nicotine dependence, unspecified, uncomplicated; Z79.82 Long term (current) use of aspirin; Z79.899 Other long term (current) drug therapy; Z86.718 Personal history of other venous thrombosis and embolism; Z87.01 Personal history of pneumonia (recurrent); Z86.79 Personal history of other diseases of the circulatory system; Z95.828 Presence of other vascular implants and grafts; Z91.012 Allergy to eggs; Z88.5 Allergy status to narcotic agent; Z88.8 Allergy status to other drugs, medicaments and biological substances
CPT/HCPCS: 36415; 71046; 71275; 74174; 80048; 80053; 81001; 82150; 83690; 83735; 84484; 85025; 85610; 85730; 93005; 96361; 96365; 96366; 96375; 96376; 99285

== ENCOUNTER 2024-04-08 19:21 | Emergency (ER) | payer OTHER ==
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
[2024-04-08 19:51] LABS: Basophils % (A) 0 %; Eosinophils # (A) 0.2 k/uL (0-0.7); Eosinophils % (A) 4 %; HCT 38.7 % (39.0-53.0); HGB 12.4 gm/dL (13.0-17.5); Lymphocytes # (A) 1.4 k/uL (1.0-4.8); Lymphocytes % (A) 21 %; MCH 29.3 pg (25.0-35.0); MCHC 32.1 g/dL (31.0-37.0); MCV 91.4 fL (80.0-100.0); Mean Platelet Volume 8.1; Monocytes # (A) 0.4 k/uL (0-1.0); Monocytes % (A) 7 %; Neutrophils # (A) 4.4 k/uL (1.3-7.7); Neutrophils % (A) 67 %; Platelet Count 168 k/uL (150-450); RBC 4.24 m/uL (4.30-5.90); RDW 14.3 % (11.5-15.5); WBC 6.6 k/uL (3.8-10.6)
[2024-04-08 20:06] LABS: INR 0.9 (<1.2); Partial Thromboplastin Time 26.7 sec (22.0-30.0); Prothrombin Time 10.3 sec (10.0-12.5)
[2024-04-08 20:15] LABS: ALT 62 U/L (4-49); African American GFR (CKD) 85 (>60 ml/min/1.73 sqM); Albumin 4.3 g/dL (3.5-5.0); Alcohol <10 mg/dL; Anion Gap 8 mmol/L; Blood Urea Nitrogen 24 mg/dL (9-20); Calcium 9.1 mg/dL (8.4-10.2); Carbon Dioxide 24 mmol/L (22-30); Chloride 106 mmol/L (98-107); Glucose 98 mg/dL (74-99); Non-African American GFR(CKD) 74 (>60 ml/min/1.73 sqM); Sodium 138 mmol/L (137-145); Total Bilirubin 0.4 mg/dL (0.2-1.3); Total Protein 7.7 g/dL (6.3-8.2)
[2024-04-08] MEDS: MORPHINE SULFATE 4 MG/ML SYRINGE IV STA (20:18)
[2024-04-08 20:49] LABS: AST 105 U/L (17-59); Alkaline Phosphatase 62 U/L (38-126); Potassium 3.3 mmol/L (3.5-5.1)
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
[2024-04-08 21:34] LABS: Amphetamine Screen,Urine Not Detected (NotDetected); Barbiturate Screen,Urine Not Detected (NotDetected); Benzodiazepines Screen,Urine Not Detected (NotDetected); Cocaine Screen,Urine Not Detected (NotDetected); Methadone Screen, Urine Not Detected (NotDetected); Opiate Screen,Urine Detected (NotDetected); Oxycodone Screen, Urine Not Detected (NotDetected); Phencyclidine Screen,Urine Not Detected (NotDetected); Tricyclic Antidepressant,Urine Not Detected (NotDetected); Urn Cannabinoid Scrn Detected (NotDetected)
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
--- NOTE | 2024-04-08 21:51 | XR ---
EXAMINATION TYPE: XR shoulder complete LT DATE OF EXAM: 04/08/2024 COMPARISON: NONE HISTORY: Pain TECHNIQUE: Left Shoulder examined in 3 projections. FINDINGS: The humeral head articulates with the glenoid. The acromio-clavicular junction is normal. No acute fractures or dislocations are evident. A follow up study can be performed 7-10 days from acute trauma for continued pain. MRI can be perfor med if soft tissue evaluation would be of benefit. IMPRESSION: 1. No acute osseous left shoulder abnormality. [facility], Workstation: [facility], 04/08/2024 9:49 PM
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
[2024-04-08] MEDS: ACET/COD 300 MG/30 MG STARTER PACK 6 TAB BTL PO STA (22:23)
[2024-04-08 22:41] VITALS: BP 158/119; PULSE 69; RESP 18; TEMP 98.7
== END 2024-04-08 22:20 | disposition home or self-care (01) ==
LOC: EC 19:21
DX: Z04.1 Encounter for examination and observation following transport accident (principal); F17.200 Nicotine dependence, unspecified, uncomplicated; Z86.73 Personal history of transient ischemic attack (TIA), and cerebral infarction without residual deficits; Z88.5 Allergy status to narcotic agent; Z88.8 Allergy status to other drugs, medicaments and biological substances; Z91.012 Allergy to eggs; Z91.09 Other allergy status, other than to drugs and biological substances; V49.59XA Passenger injured in collision with other motor vehicles in traffic accident, initial encounter; Y92.410 Unspecified street and highway as the place of occurrence of the external cause
CPT/HCPCS: 36415; 93005; 86900; 86901; 80053; 83605; 84484; 85025; 85610; 85730; 86850; 80306; 72170; 73030; 73552; 71045; 72125; 70450; 99285; 96374; G0480; J2270; 80320

== ENCOUNTER 2024-08-16 15:37 | Emergency (ER) | payer OTHER ==
[2024-08-16 15:45] VITALS: BP 184/107; PULSE 66; RESP 18; TEMP 98.8
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
[2024-08-16] MEDS: LIDOCAINE 1% INJ 10MG/ML (20 ML MDV) SQ ONE (16:43)
--- NOTE | 2024-08-16 17:56 | ED ---
Wound/Laceration HPI - General Source: patient Mode of arrival: ambulatory Limitations: no limitations <Oracio Gomes - Last Filed: 08/16/24 18:04> <Sugey - Last Filed: 08/17/24 13:18> - General Chief Complaint: Wound/Laceration Stated Complaint: Right hand injury - History of Present Illness Initial Comments: Patient is a 44-year-old male with history of aortic aneurysm diagnosed 4 years ago presented emergency department with a 4 cm laceration on his right hand. Patient states that he accidentally cut his hand while doing dishes this afternoon. His last tetanus shot was about 3 years ago. Reports full range of motion. He currently reports the pain to be 7 out of 10. Denies fever, chills, shortness of breath, chest pain, numbness or tingling sensation in his hand. (Oracio Gomes) - Related Data Home Medications Medication Instructions Recorded Confirmed Aspirin 325 mg PO DAILY 05/12/21 06/06/22 Ergocalciferol [Vitamin D2 (1250 1,250 mcg PO Q30D 05/12/21 06/06/22 Mcg = 26449 Iu)] HYDROcodone/APAP 7.5-325MG [[place] 1 tab PO DIRECTED PRN 05/12/21 06/06/22 7.5-325] Ibuprofen [Motrin] 800 mg PO QID PRN 05/12/21 06/06/22 amLODIPine [Norvasc] 10 mg PO DAILY 05/12/21 06/06/22 hydrALAZINE HCL [Apresoline] 100 mg PO TID 05/12/21 06/06/22 Sertraline [Zoloft] 25 mg PO DAILY 05/23/22 06/06/22 Spironolactone-Hctz 25-25Mg 1 tab PO DAILY 05/23/22 06/06/22 [Aldactazide 25-25 MG] Previous Rx's Medication Instructions Recorded Labetalol [Trandate] 200 mg PO BID 30 Days #60 tab 06/08/22 Metoprolol Tartrate [Lopressor] 50 mg PO TID 30 Days #90 tab 06/08/22 Allergies Allergy/AdvReac Type Severity Reaction Status Date / Time JASMYN Inhibitors Allergy per Verified 06/06/22 01:56 paperwork from [facility] egg Allergy Rash/Hives Verified 06/06/22 01:56 wool Allergy Rash/Hives Verified 06/06/22 01:56 fentanyl AdvReac Unknown Verified 06/06/22 01:56 quetiapine [From Seroquel] AdvReac Hallucinati Verified 06/06/22 01:56 ons Review of Systems ROS Other: All systems not noted in ROS Statement are negative. Constitutional: Denies: fever, chills ENT: Denies: ear pain, throat pain Respiratory: Denies: cough, dyspnea Cardiovascular: Denies: chest pain, palpitations Skin: Denies: rash, lesions Hematological/Lymphatic: Reports: easy bleeding <Oracio Gomes - Last Filed: 08/16/24 18:04> ROS Other: All systems not noted in ROS Statement are negative. <Sugey Waite - Last Filed: 08/17/24 13:18> ROS Statement: Those systems with pertinent positive or pertinent negative responses have been documented in the HPI. 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 sleep disorder, R eye muscle problems/poor vision, History of Any Multi-Drug Resistant Organisms: None Reported Past Surgical History: Appendectomy Additional Past Surgical History / Comment(s): Lap appy with umbilical hernia repair, 01/23/21 aortic repair, 03/21/21 lower spinal repair, 03/25/21 open aortic repair then a leak with a radiologic procedure to correct, bronchoscopies x3 d/t fluid in lungs during aortic aneurysm. Past Anesthesia/Blood Transfusion Reactions: No Reported Reaction Past Psychological History: No Psychological Hx Reported Smoking Status: Current every day smoker Past Alcohol Use History: Rare Past Drug Use History: Marijuana - Past Family History Father Family Medical History: No Reported History, Hypertension Additional Family Medical History / Comment(s): Father long ago in an accident. Mother Family Medical History: Hypertension, Osteoarthritis (OA) Additional Family Medical History / Comment(s): Arrhythmia, lupus <Oracio Gomes - Last Filed: 08/16/24 18:04> General Exam Limitations: no limitations <Oracio Gomes - Last Filed: 08/16/24 18:04> - General Exam Comments Initial Comments: GENERAL: This is a 44-year-old in no apparent distress at the time of examination. Pleasant and cooperative. HEENT: Head is atraumatic, normocephalic. RESPIRATORY: Clear to auscultation. No wheezes, rales, or rhonchi. No use of accessory muscles. Patient maintaining oxygen saturation greater than 92%. No chest wall tenderness is noted on palpation or with deep breathing. CARDIOVASCULAR: Regular rate and rhythm. S1 and S2 noted. No systolic or diastolic murmur auscultated. No JVD noted. No S3 or S4 noted. GASTROINTESTINAL: No distention noted. Abdomen soft and round. Normal active bowel sounds auscultated x 4 quadrants. No pain or tenderness noted upon palpation. INTEGUMENTARY: No cyanosis. No jaundice. A 3 cm laceration noted on dorsal aspect of right hand. EXTREMITIES: 2+ peripheral pulses. No evidence of peripheral edema. No calf tenderness noted. NEUROLOGIC: Cranial nerves II-XII intact. PSYCHIATRIC: Awake, alert, and oriented X 3. Appropriate affect. Intact judgement and insight. (Oracio Gomes) Course Vital Signs 08/16/24 15:41 Temperature 98.8 F Pulse Rate 66 Respiratory 18 Rate Blood Pressure 184/107 O2 Sat by Pulse 99 Oximetry Procedures - Laceration Laceration #1 Consent Obtained: verbal consent Indication: laceration Site: hand Description: flap Depth: simple, single layer Anesthetic Used: lidocaine 1% Anesthesia Technique: local infiltration Pre-repair: wound explored, irrigated extensively, deep structures intact Type of Sutures: nylon Size of Sutures: 4-0 Number of Sutures: 6 Technique: simple, interrupted Patient Tolerated Procedure: well <Sugey Waite - Last Filed: 08/17/24 13:18> Medical Decision Making <Oracio Gomes - Last Filed: 08/16/24 18:04> <Sugey Waite - Last Filed: 08/17/24 13:18> - Medical Decision Making Was pt. sent in by a medical professional or institution (Dr., PA, REHABILITATION SERVICES MANAGER, urgent care, hospital, or half-way...) When possible be specific @ -No Did you speak to anyone other than the patient for history (EMS, parent, family, police, friend...)? What history was obtained from this source @ -Family Did you review nursing and triage notes (agree or disagree)? Why? @ -Agree with nursing and triage notes. Were old charts reviewed (outside hosp., previous admission, EMS record, old EKG, old radiological studies, urgent care reports/EKG's, half-way records)? Report findings @ -No old charts reviewed. Differential Diagnosis? @ -Hand laceration. EKG interpreted by me (3pts min.). @ -No EKG X-rays interpreted by me (1pt min.). @ -X-ray showed no osseous abnormality or foreign object. CT interpreted by me (1pt min.). @ -No CT U/S interpreted by me (1pt. min.). @ -No ultrasound What testing was considered but not performed or refused? (CT, X-rays, U/S, labs)? Why? @ -None What meds were considered but not given or refused? Why? @ -None Did you discuss the management of the patient with other professionals (professionals i.e. JORI Alva, REHABILITATION SERVICES MANAGER, lab, RT, psych nurse, social worker delinquency prevention, thread spinner, teacher, transit authority police officer, case resolution specialist)? Give summary @ -Discussed with attending physician Was smoking cessation discussed for >3mins.? @ -No Was critical care preformed (if so, how long)? @ -No Were there social determinants of health that impacted care today? How? (Homelessness, low income, unemployed, alcoholism, drug addiction, transportation, low edu. Level, literacy, decrease access to med. care, prison, rehab)? @ -No Was there de-escalation of care discussed even if they declined (Discuss DNR or withdrawal of care, Hospice)? DNR status @ -No What co-morbidities impacted this encounter? (DM, HTN, Smoking, COPD, CAD, Cancer, CVA, ARF, Chemo, Hep., AIDS, mental health diagnosis, sleep apnea, morbid obesity)? @ -History of aortic aneurysm, on baby aspirin Was patient admitted / discharged? Hospital course, mention meds given and route, prescriptions, significant lab abnormalities, going to OR and other pertinent info. @ -Patient will be discharged home. A 3 cm laceration was repaired with sutures. Bacitracin ointment was applied afterwards. Undiagnosed new problem with uncertain prognosis? @ -No Drug Therapy requiring intensive monitoring for toxicity (Heparin, Nitro, Insulin, Cardizem)? @ -No Were any procedures done? @ -3 cm laceration was repaired with sutures Diagnosis/symptom? @ -Head laceration Acute, or Chronic, or Acute on Chronic? @ -Acute Uncomplicated (without systemic symptoms) or Complicated (systemic symptoms)? @ -Uncomplicated Side effects of treatment? @ -No Exacerbation, Progression, or Severe Exacerbation? @ -No exacerbation Poses a threat to life or bodily function? How? (Chest pain, [place], OR, pneumonia, PE, COPD, DKA, ARF, appy, cholecystitis, CVA, Diverticulitis, Homicidal, Suicidal, threat to staff... and all critical care pts) @ -No (Oracio Gomes) I personally saw the patient and performed the critical portion of the service. I discussed the patient care with the resident. I directed management, care planning and final disposition of the patient. This includes, but not limited to, review of all lab work, radiological studies, EKG's, consultations, vital signs, and nursing notes. Patient is a 44 y/o gentleman presenting to superficial laceration of the dorsal aspect of the right hand. Hand is neurovascularly intact on my assessment. Does not appear to have joint or ligament involvement. 3 cm flap laceration noted w/o pulsatile bleeding. Informed consent obtained from pt regarding laceration repair. Laceration repaired by myself and resident physician. Please see procedure note above. Discussed with pt signs and symptoms warranting return to the ED, including but not limited to signs of infection such as redness, swelling uncontrolled pain, discharge or fevers. Laceration care was discussed w/ pt and . X-Rays interpreted by me (1 pt min.) @I personally reviewed XR of pt's hand, I see no evidence of fracture or foreign body, I agree with radiologist interpretation Critical care time of [0] minutes excluding separately billable procedures was spent in conjunction with critical care activities provided by the Resident and Attending simultaneously. I was present during laceration repair for all critical portions of the procedure and as immediately available to furnish service during the entire procedure. (Sugey Waite) Disposition Is patient prescribed a controlled substance at d/c from ED?: No Time of Disposition: 18:00 <Oracio Gomes - Last Filed: 08/16/24 18:04> Is patient prescribed a controlled substance at d/c from ED?: No <Sugey Waite - Last Filed: 08/17/24 13:18> Clinical Impression: Laceration Narrative: Patient will be discharged home after laceration was repaired with sutures. Advised patient to take Tylenol or Motrin as needed for pain. Advised patient to follow-up with hand surgeon in 1 to 3 days after discharge. (Oracio Gomes) Disposition: HOME SELF-CARE Condition: Stable Instructions (If sedation given, give patient instructions): Care For Your Stitches (ED), Laceration (ED) Referrals: None,Stated [Primary Care Provider] - 1-2 days Benny Guevara DO [Doctor of Osteopathic Medicine] - 1-2 days
[2024-08-16] MEDS: BACITRACIN OINT 1 EACH PACKET TOPICAL ONE (18:13)
== END 2024-08-16 18:24 | disposition home or self-care (01) ==
LOC: EC 15:37
DX: S61.411A Laceration without foreign body of right hand, initial encounter (principal); Z86.79 Personal history of other diseases of the circulatory system; F17.200 Nicotine dependence, unspecified, uncomplicated; W26.9XXA Contact with unspecified sharp object(s), initial encounter
CPT/HCPCS: 73120; 99283; 12002; J2003